=== PATIENT | male | born 1960 | race Caucasian/White ===

== ENCOUNTER 2021-09-16 18:15 | Inpatient (IN) | payer BC, OTHER ==
[~2021-09-16] VITALS: Ht 185.4 cm; Wt 81.6 kg
[2021-09-16 19:33] LABS: Basophils # (auto) 0 10 ^3/uL (0-0.2); Basophils % (auto) 0.2 % (0.0-2.0); Eosinophils # (auto) 0 10 ^3/uL (0-0.8)
[2021-09-16 19:35] LABS: Eosinophils % (auto) 0.2 % (0.0-7.0); Hematocrit 51.5 % (41.0-53.0); Hemoglobin 17.9 g/dL (13.5-17.5); Lymphocytes # (auto) 1.4 10 ^3/uL (0.4-5.4); Mean Corpuscular Hemoglobin 34.6 pg (28.0-32.0); Mean Corpuscular Hgb Conc. 34.7 g/dL (32.0-36.0); Mean Corpuscular Volume 99.7 fL (80.0-100.0); Monocytes # (auto) 1.4 10 ^3/uL (0-1.3); Monocytes % (auto) 8.2 % (0.0-12.0); Neutrophils # (auto) 14.3 10 ^3/uL (1.6-8.6); Neutrophils % (auto) 83.4 % (37.0-80.0); Nucleated Red Blood Cells % 0.1 %; Red Blood Cells 5.17 10^6/uL (4.5-5.90); Red Cell Distribution Width 12.7 % (11.8-14.3); White Blood Cell 17.1 10^3/uL (4.4-10.8)
[2021-09-16] MEDS ORDERED: PANTOPRAZOLE 80 MG in SODIUM CHL 0.9% 100 ML IV ONE (19:45)
[2021-09-16] MEDS ORDERED: PANTOPRAZOLE 40mg/50ML NS AE 50 ML IV ONE (19:45)
[2021-09-16] MEDS ORDERED: FAMOTIDINE (10MG/ML) 2ML VL IV ONE (19:45)
[2021-09-16] MEDS ORDERED: SUCRALFATE 1 GM/10 ML ORAL SUSP PO ONE (19:45)
[2021-09-16 19:54] LABS: Albumin 4.3 g/dL (3.4-5.0); BUN/Creatinine Ratio 8.1; Calcium 9.6 mg/dL (8.5-10.1); Potassium 4.4 mmol/L (3.5-5.1)
[2021-09-16 20:03] LABS: Bilirubin, Total 0.7 mg/dL (0.2-1.0); Total Protein 8.4 g/dL (6.4-8.2)
[2021-09-16] MEDS ORDERED: IOHEXOL 300 MG/ML 100ML BOTTLE IJ ONE (20:26)
[2021-09-16] MEDS ORDERED: IOHEXOL 350 MG/ML 100ML IJ ONE (20:32)
[2021-09-16 20:34] LABS: Lactic Acid w/Reflex 2.3 mmol/L (0.4-2.0)
[2021-09-17] MEDS ORDERED: MORPHINE SULFATE 4 MG/ML SYR/VIAL IV PRN (03:15)
[2021-09-17] MEDS ORDERED: ACETAMINOPHEN 325 MG TAB PO PRN (03:15)
[2021-09-17] MEDS ORDERED: ONDANSETRON HCL 4 MG/2 ML VIAL IV PRN (03:15)
[2021-09-17] MEDS ORDERED: HYDROcodone-ACET 5/325MG TAB PO PRN (03:15)
[2021-09-17] MEDS ORDERED: hydrALAZINE HCL 20 MG/ML VL IV PRN (03:45)
[2021-09-17] MEDS ORDERED: MORPHINE SULFATE INJECTION 2 MG/ML SYRG IV PRN (04:15)
[2021-09-17] MEDS ORDERED: NITROGLYCERIN 0.4 MG SL TAB SL PRN (04:15)
[2021-09-17 06:15] VITALS: BP 150/95
[2021-09-17 06:18] LABS: Basophils # (auto) 0 10 ^3/uL (0-0.2); Basophils % (auto) 0.3 % (0.0-2.0); Eosinophils # (auto) 0.1 10 ^3/uL (0-0.8); Eosinophils % (auto) 0.7 % (0.0-7.0); Hematocrit 46.9 % (41.0-53.0); Hemoglobin 16.2 g/dL (13.5-17.5); Lymphocytes # (auto) 1.9 10 ^3/uL (0.4-5.4); Lymphocytes % (auto) 17.3 % (10.0-50.0); Mean Corpuscular Hemoglobin 34.8 pg (28.0-32.0); Mean Corpuscular Hgb Conc. 34.6 g/dL (32.0-36.0); Mean Corpuscular Volume 100.6 fL (80.0-100.0); Monocytes # (auto) 1.6 10 ^3/uL (0-1.3); Monocytes % (auto) 15.4 % (0.0-12.0); Neutrophils # (auto) 7.1 10 ^3/uL (1.6-8.6); Neutrophils % (auto) 66.3 % (37.0-80.0); Red Blood Cells 4.66 10^6/uL (4.5-5.90); Red Cell Distribution Width 12.8 % (11.8-14.3); White Blood Cell 10.7 10^3/uL (4.4-10.8)
[2021-09-17] MEDS: D5W/SOD CHLO 0.9% 1,000 ML IV SCH ×2 (06:25→16:50)
[2021-09-17 06:31] LABS: Potassium 4.4 mmol/L (3.5-5.1)
[2021-09-17 06:40] LABS: Albumin 3.6 g/dL (3.4-5.0); BUN/Creatinine Ratio 11.7; Bilirubin, Total 1.1 mg/dL (0.2-1.0); Calcium 8.9 mg/dL (8.5-10.1)
[2021-09-17] MEDS: SUCRALFATE 1 GM/10 ML ORAL SUSP PO SCH ×3 (07:10→18:08)
[2021-09-17 08:00] VITALS: BP 146/97
[2021-09-17] MEDS ORDERED: cefTRIAXone 1GM/50ML D5W 50 ML IV SCH (09:00)
[2021-09-17] MEDS: PANTOPRAZOLE 40 MG/10 ML VIAL INJ IV SCH ×2 (11:38→21:59)
[2021-09-17 12:00] VITALS: BP 149/93
[2021-09-17 12:23] LABS: Hematocrit 46.8 % (41.0-53.0); Hemoglobin 16.2 g/dL (13.5-17.5)
[2021-09-17 16:00] VITALS: BP 145/85
[2021-09-17 18:40] LABS: Hemoglobin 15.1 g/dL (13.5-17.5)
[2021-09-17 18:42] LABS: Hematocrit 44.6 % (41.0-53.0)
[2021-09-17 20:00] VITALS: BP 161/85
[2021-09-17 22:47] VITALS: BP 161/85
[2021-09-18] MEDS: D5W/SOD CHLO 0.9% 1,000 ML IV SCH (03:26)
[2021-09-18 05:13] VITALS: BP 161/105
[2021-09-18 05:55] LABS: Eosinophils # (auto) 0.1 10 ^3/uL (0-0.8); Hematocrit 43.1 % (41.0-53.0); White Blood Cell 7.3 10^3/uL (4.4-10.8)
[2021-09-18 06:02] VITALS: BP 136/84
[2021-09-18 06:05] LABS: Basophils # (auto) 0 10 ^3/uL (0-0.2); Basophils % (auto) 0.5 % (0.0-2.0); Eosinophils % (auto) 1.6 % (0.0-7.0); Hemoglobin 14.7 g/dL (13.5-17.5); Lymphocytes # (auto) 1.9 10 ^3/uL (0.4-5.4); Lymphocytes % (auto) 26.6 % (10.0-50.0); Mean Corpuscular Hemoglobin 34.5 pg (28.0-32.0); Mean Corpuscular Volume 101.5 fL (80.0-100.0); Monocytes # (auto) 1.1 10 ^3/uL (0-1.3); Monocytes % (auto) 15.1 % (0.0-12.0); Neutrophils # (auto) 4.1 10 ^3/uL (1.6-8.6); Neutrophils % (auto) 56.2 % (37.0-80.0); Nucleated Red Blood Cells % 0.1 %; Red Blood Cells 4.25 10^6/uL (4.5-5.90); Red Cell Distribution Width 12.6 % (11.8-14.3)
[2021-09-18 06:06] LABS: Potassium 3.8 mmol/L (3.5-5.1)
[2021-09-18 06:11] LABS: Albumin 3.2 g/dL (3.4-5.0); BUN/Creatinine Ratio 14.5; Calcium 8.2 mg/dL (8.5-10.1); Total Protein 6.2 g/dL (6.4-8.2)
== END 2021-09-18 09:08 | disposition left against medical advice (07) | DRG 391 ==
LOC: ER 18:20 → OVERFLOW 09-17 04:04 → WEST WING 09-17 06:00
PROVIDERS: ADMIT Nurse Practitioner Family; ATTEND Internal Medicine
DX: K52.9 Noninfective gastroenteritis and colitis, unspecified (principal); K29.71 Gastritis, unspecified, with bleeding; K21.01 Gastro-esophageal reflux disease with esophagitis, with bleeding; F17.210 Nicotine dependence, cigarettes, uncomplicated; Z53.29 Procedure and treatment not carried out because of patient's decision for other reasons; K27.9 Peptic ulcer, site unspecified, unspecified as acute or chronic, without hemorrhage or perforation; Z20.822 Contact with and (suspected) exposure to COVID-19; Z80.0 Family history of malignant neoplasm of digestive organs; Z80.8 Family history of malignant neoplasm of other organs or systems
CPT/HCPCS: 36415; 71260; 74177; 80053; 83036; 83605; 83690; 85014; 85018; 85025; 86850; 86900; 86901; 87426; 93005; 96365; 96367; 96375; C9113; G0378; J0696; J3490; J7042

== ENCOUNTER 2023-09-25 21:53 | Inpatient (IN) | payer BC, OTHER ==
[~2023-09-25] VITALS: Ht 177.8 cm; Wt 86.1 kg
[2023-09-25] MEDS ORDERED: ALBUTEROL MEDNEB 2.5 mg/3ml NEB ONE ×2 (21:57→23:25)
[2023-09-25] MEDS ORDERED: IPRATROPIUM BROM 0.5 MG/2.5ML INH SOL ONE ×2 (21:57→23:25)
[2023-09-25 21:58] VITALS: PULSE 123; RESP 34; O2SAT 98
[2023-09-25] MEDS ORDERED: MAGNESIUM SULFATE 1GM/100ML 100 ML IV ONE (22:15)
[2023-09-25] MEDS ORDERED: DexAMETHasone SOD PHOS 10MG/1ML VIAL INJ IV ONE (22:15)
[2023-09-25] MEDS ORDERED: LABETALOL HCL 5 MG/ML 4ML SYRINGE IV ONE (22:15)
[2023-09-25] MEDS ORDERED: IPRATROPIUM BROM 0.5 MG/2.5ML INH SOL NEB ONE ×2 (22:15→23:45)
[2023-09-25] MEDS ORDERED: AZITHROMYCIN 500MG/ 250ML 250 ML IV ONE (22:15)
[2023-09-25] MEDS ORDERED: ALBUTEROL MEDNEB 2.5 mg/3ml NEB NEB ONE (22:30)
[2023-09-25] MEDS ORDERED: cefTRIAXone 1GM/50ML D5W 50 ML IV ONE (22:30)
[2023-09-25 22:34] LABS: Basophils # (auto) 0 10 ^3/uL (0-0.2); Basophils % (auto) 0.3 % (0.0-2.0); Eosinophils # (auto) 0.2 10 ^3/uL (0-0.8); Eosinophils % (auto) 1.7 % (0.0-7.0); Hematocrit 42.2 % (41.0-53.0); Hemoglobin 14.3 g/dL (13.5-17.5); Mean Corpuscular Hemoglobin 34.7 pg (28.0-32.0); Mean Corpuscular Hgb Conc. 33.9 g/dL (32.0-36.0); Mean Corpuscular Volume 102.2 fL (80.0-100.0); Monocytes # (auto) 1.7 10 ^3/uL (0-1.3); Monocytes % (auto) 13.2 % (0.0-12.0); Neutrophils % (auto) 38.8 % (37.0-80.0); Nucleated Red Blood Cells % 0.1 %; Red Blood Cells 4.13 10^6/uL (4.5-5.90); Red Cell Distribution Width 12.7 % (11.8-14.3); White Blood Cell 12.9 10^3/uL (4.4-10.8)
[2023-09-25 22:50] LABS: INR 0.93 (0.9-1.15); Partial Thromboplastin Time 27.6 SEC (24.5-34.5); Prothrombin Time 9.8 sec (9.3-11.8)
[2023-09-25 22:55] VITALS: BP 203/123; PULSE 126; RESP 20; O2SAT 97
[2023-09-25 23:22] LABS: Base Excess -2.7 mmol/L (-2.0-2.0)
[2023-09-25 23:45] LABS: Alanine Aminotransferase 22 U/L (7-40); Albumin 4.8 g/dL (3.2-4.8); Alkaline Phosphatase 83 U/L (46-116); Anion Gap 5 (5-15); Aspartate Aminotransferase 28 U/L (13-40); BUN/Creatinine Ratio 7.9 (10.0-20.0); Bilirubin, Total 0.2 mg/dL (0.2-1.0); Blood Urea Nitrogen 6 mg/dL (9-23); Calcium 8.8 mg/dL (8.7-10.4); Carbon Dioxide 29 mmol/L (20-30); Chloride 96 mmol/L (98-107); Glucose 143 mg/dL (74-106); Magnesium 2.1 mg/dL (1.6-2.6); Potassium 4.4 mmol/L (3.5-5.1); Sodium 130 mmol/L (136-145)
[2023-09-25] MEDS ORDERED: ALBUTEROL SULF 2.5 MG/0.5ML(0.5%) NEB SOLN NEB ONE (23:45)
[2023-09-25 23:46] LABS: Total Protein 7.5 g/dL (5.7-8.2)
[2023-09-25 23:49] VITALS: BP 113/78; PULSE 81; O2SAT 95
[2023-09-26] VITALS (8 sets, daily range): BP systolic 112–132; BP diastolic 76–94; PULSE 78–86; RESP 15–22; TEMP 97.9–98.2; O2SAT 92–98
[2023-09-26 03:49] LABS: Urine Bacteria NONE SEEN /hpf (None Seen); Urine Blood Negative /uL (Negative); Urine Clarity Clear (Clear); Urine Color Colorless (Yellow); Urine Hyaline Cast FEW /lpf (0 - 2); Urine Protein, UAD 1+ (Negative); Urine Specific Gravity 1.012 (1.001-1.035); Urine Urobilinogen Normal (Negative); Urine WBC 1 /hpf (0 - 3)
[2023-09-26] MEDS ORDERED: ACETAMINOPHEN 325 MG TAB PO PRN (04:30)
[2023-09-26] MEDS ORDERED: TEMAZEPAM 15 MG CAP PO PRN (04:30)
[2023-09-26] MEDS ORDERED: ONDANSETRON HCL 4 MG/2 ML VIAL IV PRN (04:30)
[2023-09-26] MEDS ORDERED: ALBUTEROL SULF 2.5 MG/0.5ML(0.5%) NEB SOLN NEB PRN (04:30)
[2023-09-26] MEDS ORDERED: NITROGLYCERIN 0.4 MG SL TAB SL PRN (04:30)
[2023-09-26] MEDS ORDERED: MORPHINE SULFATE INJ 2 MG/ml SYRG IV PRN (04:30)
[2023-09-26] MEDS ORDERED: IPRATROPIUM BROM 0.5 MG/2.5ML INH SOL NEB PRN (04:30)
[2023-09-26 10:06] LABS: Chloride 96 mmol/L (98-107); Sodium 133 mmol/L (136-145)
[2023-09-26 10:07] LABS: Anion Gap 6 (5-15); Calcium 9.2 mg/dL (8.5-10.1); Carbon Dioxide 31 mmol/L (20-30)
[2023-09-26 10:12] LABS: BUN/Creatinine Ratio 8.3 (10.0-20.0); Blood Urea Nitrogen 6 mg/dL (9-23); Glucose 126 mg/dL (74-106)
[2023-09-26] MEDS: methylPREDNISolone SOD SUCC 125 MG/2 ML VL IV SCH ×2 (10:26→21:54)
[2023-09-26] MEDS: ENOXAPARIN SOD 40 MG/0.4 ML SYRINGE SC SCH (10:26)
[2023-09-26] MEDS: LISINOPRIL 10 MG TAB PO SCH (10:27)
[2023-09-26 10:29] LABS: Basophils # (auto) 0 10 ^3/uL (0-0.2); Basophils % (auto) 0.1 % (0.0-2.0); Eosinophils # (auto) 0 10 ^3/uL (0-0.8); Hemoglobin 13.9 g/dL (13.5-17.5); Lymphocytes # (auto) 0.7 10 ^3/uL (0.4-5.4); Lymphocytes % (auto) 13.7 % (10.0-50.0); Monocytes # (auto) 0.7 10 ^3/uL (0-1.3)
[2023-09-26 10:31] LABS: Hematocrit 39.9 % (41.0-53.0); Mean Corpuscular Hemoglobin 35.4 pg (28.0-32.0); Mean Corpuscular Hgb Conc. 34.9 g/dL (32.0-36.0); Mean Corpuscular Volume 101.4 fL (80.0-100.0); Monocytes % (auto) 12.2 % (0.0-12.0); Red Blood Cells 3.94 10^6/uL (4.5-5.90); Red Cell Distribution Width 12.6 % (11.8-14.3); White Blood Cell 5.4 10^3/uL (4.4-10.8)
[2023-09-26] MEDS ORDERED: AZIT-81 PO (10:39)
[2023-09-26] MEDS ORDERED: METH4PAK PO (10:39)
[2023-09-26 11:24] LABS: Magnesium 2.3 mg/dL (1.6-2.6)
[2023-09-26] MEDS ORDERED: cefTRIAXone 1GM/50ML D5W 50 ML IV ONE ×2 (12:00→13:24)
[2023-09-26] MEDS ORDERED: AZITHROMYCIN 500MG/ 250ML 250 ML IV ONE (12:00)
[2023-09-26] MEDS ORDERED: ALBU108A5 PO (12:12)
[2023-09-26] MEDS ORDERED: OMEP20TA PO (12:12)
[2023-09-26] MEDS ORDERED: TIOT17SP PO (12:12)
[2023-09-26] MEDS ORDERED: NICO21DI37 TOP (12:12)
[2023-09-26] MEDS ORDERED: FLUT100M (12:12)
[2023-09-26 13:45] LABS: COVID19 ANTIGEN SOFIA FIA NEGATIVE (NEGATIVE)
[2023-09-26] MEDS ORDERED: PANTOPRAZOLE 40 MG TAB PO ONE (20:15)
[2023-09-27 05:00] VITALS: BP 127/89; PULSE 63; RESP 20; TEMP 97.4; O2SAT 99
[2023-09-27 06:05] LABS: Basophils # (auto) 0 10 ^3/uL (0-0.2); Basophils % (auto) 0.1 % (0.0-2.0); Eosinophils # (auto) 0 10 ^3/uL (0-0.8); Hemoglobin 13.8 g/dL (13.5-17.5); Lymphocytes # (auto) 0.9 10 ^3/uL (0.4-5.4); Monocytes # (auto) 0.9 10 ^3/uL (0-1.3); Neutrophils # (auto) 6.7 10 ^3/uL (1.6-8.6); White Blood Cell 8.4 10^3/uL (4.4-10.8)
[2023-09-27 06:08] LABS: Lymphocytes % (auto) 10.4 % (10.0-50.0); Mean Corpuscular Hemoglobin 35.2 pg (28.0-32.0); Mean Corpuscular Hgb Conc. 34.5 g/dL (32.0-36.0); Mean Corpuscular Volume 101.9 fL (80.0-100.0); Monocytes % (auto) 10.6 % (0.0-12.0); Neutrophils % (auto) 78.9 % (37.0-80.0); Red Blood Cells 3.93 10^6/uL (4.5-5.90); Red Cell Distribution Width 12.6 % (11.8-14.3)
[2023-09-27 06:11] LABS: Chloride 96 mmol/L (98-107); Potassium 3.9 mmol/L (3.5-5.1); Sodium 132 mmol/L (136-145)
[2023-09-27 06:12] LABS: Anion Gap 5 (5-15); Carbon Dioxide 31 mmol/L (20-30)
[2023-09-27 06:17] LABS: Glucose 152 mg/dL (74-106)
[2023-09-27 06:18] LABS: BUN/Creatinine Ratio 11.6 (10.0-20.0); Blood Urea Nitrogen 8 mg/dL (9-23); Magnesium 2.2 mg/dL (1.6-2.6)
[2023-09-27 06:57] VITALS: O2SAT 97
[2023-09-27 08:00] VITALS: PULSE 75; PULSE 81; RESP 18; O2SAT 97
[2023-09-27] MEDS ORDERED: cefTRIAXone 1GM/50ML D5W 50 ML IV SCH (09:00)
[2023-09-27] MEDS: methylPREDNISolone SOD SUCC 125 MG/2 ML VL IV SCH (09:30)
[2023-09-27] MEDS: LISINOPRIL 10 MG TAB PO SCH (09:30)
[2023-09-27] MEDS: ENOXAPARIN SOD 40 MG/0.4 ML SYRINGE SC SCH (09:31)
[2023-09-27] MEDS ORDERED: PANTOPRAZOLE 40 MG TAB PO SCH (10:00)
[2023-09-27] MEDS ORDERED: AZITHROMYCIN 500MG/ 250ML 250 ML IV SCH ×2 (10:00)
[2023-09-27] MEDS ORDERED: NICOTINE 14 MG/24HR TOPICAL PATCH TD SCH (10:00)
== END 2023-09-27 11:20 | disposition left against medical advice (07) | DRG 189 ==
LOC: ER 21:53 → EDBD 21:53 → TELE 09-26 04:24 → TELE-CENTR 09-26 11:20
PROVIDERS: ADMIT Internal Medicine; ATTEND Student in an Organized Health Care Education/Training Program
PROC: 5A09357 Assistance with Respiratory Ventilation, Less than 24 Consecutive Hours, Continuous Positive Airway Pressure (ICD-10-PCS; principal; 2023-09-25)
DX: J96.21 Acute and chronic respiratory failure with hypoxia (principal); J44.1 Chronic obstructive pulmonary disease with (acute) exacerbation; J98.11 Atelectasis; E87.1 Hypo-osmolality and hyponatremia; I10 Essential (primary) hypertension; F17.210 Nicotine dependence, cigarettes, uncomplicated; K21.9 Gastro-esophageal reflux disease without esophagitis; Z53.29 Procedure and treatment not carried out because of patient's decision for other reasons; Z20.822 Contact with and (suspected) exposure to COVID-19; J96.22 Acute and chronic respiratory failure with hypercapnia; E66.9 Obesity, unspecified; Z68.27 Body mass index [BMI] 27.0-27.9, adult
CPT/HCPCS: 36415; 36600; 71045; 80048; 80053; 81001; 82805; 83735; 83880; 84443; 84484; 85025; 85379; 85610; 85730; 87081; 87426; 93005; 94640; 94660; 96365; 99291; G0378; J0696; J1100; J3490

== ENCOUNTER 2025-01-06 17:02 | Inpatient (IN) | payer OTHER ==
[2025-01-06] VITALS (7 sets, daily range): BP systolic 139–163; BP diastolic 84; PULSE 93–126; RESP 17–26; O2SAT 91–97
[~2025-01-06] VITALS: Ht 185.4 cm; Wt 96.6 kg
[~2025-01-06 17:02] MED LIST: ALBU108A5 PO; AZIT-185 PO; FLUT100M; METH4PAK PO; NICO21DI37 TOP; OMEP20TA PO; TIOT17SP PO
--- NOTE | 2025-01-06 17:12 | ECG ---
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
[2025-01-06] MEDS: IPRATROPIUM BROM 0.5 MG/2.5ML INH SOL HHN ONE (17:27)
[2025-01-06] MEDS: ALBUTEROL SULF 2.5 MG/0.5ML(0.5%) NEB SOLN HHN ONE (17:28)
[2025-01-06] MEDS: hydrALAZINE HCL 20 MG/ML VL IV ONE (17:31)
[2025-01-06] MEDS: methylPREDNISolone SOD SUCC 125 MG/2 ML VL IV ONE (17:32)
--- NOTE | 2025-01-06 17:33 | ED.PDOC ---
SOB-HPI HPI Comments 64y M who presents to the ED via EMS for chief complaint of shortness of breath. Pt states he has been having shortness of breath 30 mins prior to calling EMS. EMS states pt has history of COPD and attempted to use his inhaler with no relief and called EMS. Pt states he had 1 prior episode in the past with respiratory distress and states he taken to ED and intubated. Upon EMS arrival, pt has 02 sat of 77% on room air with noted respiratory distress and pt was given breathing treatment, 1g nitro paste, and placed on CPAP with 02 sat rising to 92%. EMS states pt was placed on EMS gurney and en route to the ED, pt started to become diaphoretic and tachycardic. Pt in the ED, able to speak in 2 word sentences but is [id number]. Chief Complaint: Shortness of Breath Time Seen by MD: 17:09 Primary Care Provider: KAYE Toure notes: Director Of Health Education Notes Information Source: Patient, Emergency Med Personnel Mode of Arrival: EMS Brought in by: EMS Severity: Moderate Timing: Minutes Duration: Since onset Context: At Rest, With Light Exertion PE Risk Factors: None History of: COPD Prehospital treatment: NTG, Oxygen, Treatment (albuterol and atrovent) Modifying Factors: Nothing Associated Signs and Symptoms: None If cough with SOB: Non-Productive Past Medical History PAST MEDICAL HISTORY: COPD, GERD, HTN Surgical History: Denies all surgeries Family History Family History: Family hx of Cancer Social History Smoker: Cigarettes Alcohol: Occasionally Drugs: Denies Drug Use Lives In: Home Constitutional: denies: chills, diaphoresis, fatigue, fever, malaise, sweats, weakness, others EENTM: denies: blurred vision, double vision, ear bleeding, ear discharge, ear drainage, ear pain, ear ringing, eye pain, eye redness, hearing loss, mouth pain, mouth swelling, nasal discharge, nose bleeding, nose congestion, nose pain, photophobia, tearing, throat pain, throat swelling, voice changes, others Respiratory: reports: SOB at rest, shortness of breath, SOB with excertion; denies: cough, hemoptysis, orthopnea, stridor, wheezing, others Cardiovascular: denies: chest pain, dizzy spells, diaphoresis, Dyspnea on exertion, edema, irregular heart beat, left arm pain, lightheadedness, palpitations, PND, syncope, others Gastrointestinal: denies: abdomen distended, abdominal pain, blood streaked bowels, constipated, diarrhea, dysphagia, difficulty swallowing, hematemesis, melena, nausea, poor appetite, poor fluid intake, rectal bleeding, rectal pain, vomiting, others Genitourinary: denies: burning, dysuria, flank pain, frequency, hematuria, incontinence, penile discharge, penile sore, pain, testicle pain, testicle swelling, urgency, others Neurological: denies: dizziness, fainting, headache, left sided numbness, left sided weakness, numbness, paresthesia, pre-existing deficit, right sided numbness, right sided weakness, seizure, speech problems, tingling, tremors, weakness, others Musculoskeletal: denies: back pain, gout, joint pain, joint swelling, muscle pain, muscle stiffness, neck pain, others Integumetry: denies: bruises, change in color, change in hair/nails, dryness, laceration, lesions, lumps, rash, wounds, others Allergic/Immunocompromised: denies: Difficulty Healing, Frequent Infections, Hives, Itching, others Hematologic/Lymphatic: denies: anemia, blood clots, easy bleeding, easy bruising, swollen glands, others Endocrine: denies: excessive hunger, excessive sweating, excessive thirst, excessive urination, flushing, intolerance to cold, intolerance to heat, unexplained weight gain, unexplained weight loss, others Psychiatric: denies: anxiety, bipolar disorder, depression, hopeless, panic disorder, schizophrenia, sleepless, suicidal, others All Other Systems: Reviewed and Negative Physical Exam General Appearance: Severe Distress HEENT: Normal ENT Inspection, Pharynx Normal, TMs Normal Neck: Full Range of Motion, Non-Tender, Normal, Normal Inspection Respiratory: Accessory Muscle Use, Chest Non-Tender, Decreased Breath Sounds, Respiratory Distress, Wheezing Cardiovascular: No Edema, No JVD, No Murmur, No Gallop, Tachycardia Breast Exam: Deferred Gastrointestinal: No Organomegaly, Non Tender, No Pulsatile Mass, Normal Bowel Sounds, Soft Genitalia: Deferred Pelvic: Deferred Rectal: Deferred Extremities: No calf tenderness, Normal capillary refill, Normal inspection, Normal range of motion, Non-tender, No pedal edema Musculoskeletal : Apperance: Normal 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 Was a procedure done?: Yes Sedation Sedation?: Yes Informed consent obtained: Yes Sedation start time: 17:51 Sedation end time: 17:52 Sedation total time: 1 minute Intubation Indication: Respiratory Insufficiency Prep: Preoxygenation Pretreated with: Sedation (etomidate 20mg) Medicated with: Succinylcholine (100 mg) Intubation Approach: Orotracheal Intubation size: cm (24) Differential Dx Differential Diagnosis: CHF, COPD, Hyponatremia, Myocardial infarction, Pneumonia, Pulmonary Embolism, Respiratory Distress Comments COVID,Influenza A and B X-Ray, Labs, Meds, VS Vital Signs Date Time Temp Pulse Resp B/P (MAP) Pulse Ox O2 Delivery O2 Flow Rate FiO2 01/06/25 20:00 146/78 01/06/25 20:00 146/78 01/06/25 19:52 150/77 01/06/25 19:36 126 26 163/84 (110) 95 45 01/06/25 19:36 126 26 163/84 (110) 95 45 01/06/25 19:30 162/81 01/06/25 19:30 162/81 01/06/25 19:20 97 Mechanical Ventilator+ 45 45 01/06/25 19:10 179/84 01/06/25 19:00 132 22 188/100 (129) 91 01/06/25 19:00 188/100 01/06/25 19:00 188/100 01/06/25 18:49 139 22 182/100 (127) 95 01/06/25 18:41 138 21 126/89 (101) 94 01/06/25 18:31 139 26 225/125 (158) 91 01/06/25 18:30 225/125 01/06/25 18:30 225/125 01/06/25 18:20 240/130 01/06/25 18:15 142 28 145/131 (136) 93 01/06/25 18:10 259/139 01/06/25 18:00 139 28 250/132 (171) 97 01/06/25 18:00 250/132 01/06/25 18:00 250/132 01/06/25 17:33 117 01/06/25 17:31 212/116 01/06/25 17:27 113 186/125 Facial BiPAP Mask 35 01/06/25 17:26 117 17 97 Bi-Pap+ 100 100 01/06/25 17:15 97.6 117 30 212/116 (148) 97 97.6 01/06/25 17:15 97.6 121 30 238/104 (148) 77 01/06/25 17:03 117 Lab Test 01/06/25 19:38 01/06/25 18:35 01/06/25 18:24 01/06/25 17:30 Range/Units Lactic Acid Level Pending 2.1 *H 0.4-2.0 mmol/L Troponin I High Sensitivity 5 4 </=54 ng/L Influenza Type A Antigen Negative Negative Influenza Type B Antigen Negative Negative SARS-CoV-2 Antigen (Rapid) Negative NEGATIVE White Blood Count 11.4 H 4.4-10.8 10^3/uL Red Blood Count 3.86 L 4.5-5.90 10^6/uL Hemoglobin 13.1 L 13.5-17.5 g/dL Hematocrit 39.1 L 41.0-53.0 % Mean Corpuscular Volume 101.3 H 80.0-100.0 fL Mean Corpuscular Hemoglobin 33.8 H 28.0-32.0 pg Mean Corpuscular Hemoglobin Concent 33.4 32.0-36.0 g/dL Red Cell Distribution Width 12.5 11.8-14.3 % Platelet Count 247 140-450 10^3/uL Mean Platelet Volume 7.2 6.9-10.8 fL Neutrophils (%) (Auto) 70.5 37.0-80.0 % Lymphocytes (%) (Auto) 20.5 10.0-50.0 % Monocytes (%) (Auto) 8.5 0.0-12.0 % Eosinophils (%) (Auto) 0.2 0.0-7.0 % Basophils (%) (Auto) 0.3 0.0-2.0 % Neutrophils # (Auto) 8.0 1.6-8.6 10 ^3/uL Lymphocytes # (Auto) 2.3 0.4-5.4 10 ^3/uL Monocytes # (Auto) 1.0 0-1.3 10 ^3/uL Eosinophils # (Auto) 0 0-0.8 10 ^3/uL Basophils # (Auto) 0 0-0.2 10 ^3/uL Nucleated Red Blood Cells 0.0 % D-Dimer, Quantitative Pending Sodium Level 128 L 136-145 mmol/L Potassium Level 4.4 3.5-5.1 mmol/L Chloride Level 91 L 98-107 mmol/L Carbon Dioxide Level 27 20-31 mmol/L Anion Gap 10 5-15 Blood Urea Nitrogen 8 L 9-23 mg/dL Creatinine 0.77 0.700-1.30 mg/dL Glomerular Filtration Rate Calc 99 >90 mL/min BUN/Creatinine Ratio 10.4 10.0-20.0 Serum Glucose 114 H 74-106 mg/dL Calcium Level 9.5 8.7-10.4 mg/dL B-Type Natriuretic Peptide 46.30 0-100 pg/mL Current Medications Medications (Trade) Dose Ordered Sig/Marisol Route Start Time Stop Time Status Last Admin Methylprednisolone Sodium Succinate (Solu Medrol) 125 mg ONCE ONCE IV 01/06/25 17:15 01/06/25 17:16 DC 01/06/25 17:32 Ipratropium [place] (Atrovent Medneb) 1 mg ONCE ONCE [facility] 01/06/25 17:15 01/06/25 17:16 DC 01/06/25 17:27 Albuterol (Ventolin Medneb) 20 mg ONCE ONCE N 01/06/25 17:15 01/06/25 17:16 DC 01/06/25 17:28 Hydralazine HCl (Apresoline Injection) 20 mg ONCE ONCE IV 01/06/25 17:30 01/06/25 17:31 DC 01/06/25 17:31 Etomidate 20 mg ONCE ONCE IV 01/06/25 17:45 01/06/25 17:46 DC 01/06/25 17:51 Succinylcholine Chloride (Quelicin) 100 mg ONCE ONCE IV 01/06/25 17:45 01/06/25 17:46 DC 01/06/25 17:51 Sodium Chloride 2,400 ml @ 2,400 mls/hr ONCE ONCE IV 01/06/25 18:00 01/06/25 18:59 DC 01/06/25 18:58 Ceftriaxone Sodium 50 ml @ 100 mls/hr ONCE ONCE IV 01/06/25 18:00 01/06/25 18:29 DC 01/06/25 19:52 Furosemide (Lasix Injection) 40 mg ONCE ONCE IV 01/06/25 18:30 01/06/25 18:31 DC 01/06/25 19:52 Propofol 100 ml @ 2.589 mls/ hr Q24H IV 01/06/25 18:30 01/06/25 18:00 Succinylcholine Chloride (Quelicin) 100 mg ONCE ONCE IV 01/06/25 18:30 01/06/25 18:31 DC 01/06/25 18:50 Midazolam HCl 50 ml @ 1 mls/hr Q24H IV 01/06/25 19:15 01/06/25 18:00 EXAM: XY CHEST PORTABLE IMPRESSION: Left basilar opacity with possible trace left pleural effusion. The patient was given Lasix 40 mg IV push The patient was given a continuous breathing treatment of albuterol and Atrovent. The patient was given Solu-Medrol 125 mg IV push The patient was given a a continuous breathing treatment of albuterol and Atrovent. The patient was also extremely hypertensive so was given hydralazine 20 mg IV push Despite our efforts of having the patient on BiPAP the patient's became much more labored in his breathing and so it required intubation. The patient was intubated without any complications. The patient was being sedated with propofol and Versed. The BNP is within normal limits. The CBC shows an elevated white blood cell count of 11.4 The influenza a and influenza B are negative The COVID test is negative The troponin level is negative At this time, the patient was being admitted with a diagnosis of acute re spiratory failure The patient had a Mak catheter placed. The patient also had an NG-tube placed The patient was being admitted Images Reviewed?: Images reviewed and evaluated by me Time of 1ST Reevaluation: 18:00 Reevaluation 1ST: Unchanged Patient Education/Counseling: Diagnosis, Treatment, Prognosis Family Education/Counseling: Diagnosis, Treatment, Prognosis Additional Information - I reviewed the following notes from patient's past medical encounters: - The following tests were ordered, and results were reviewed by me: (Labs, X- Ray, EKG): troponin x3, cbc, bnp, chest x-ray, ekg x3, blood culture, lactic acid, bnp, covid, influenza a and b, - Additional information was gathered from interviewing the following independent Historian: (Family, Other Providers, EMT): EMS - I reviewed and agreed with the following test results read by other provider: radiologist - I discussed treatments and results with medical personnel and: (consultants, family): none Departure 1 Departure Time of Disposition: 20:41 Impression: Primary Impression: Acute respiratory failure Qualified Codes: J96.01 - Acute respiratory failure with hypoxia Additional Impression: COPD exacerbation Disposition: ADMITTED INPATIENT Admit to: ICU Condition: Critical Critical Care Note Critical Care Time?: Yes (55 min-critical care time only) Stability Stability form required: Yes Unstable for transfer: ICU, CCU, PCU, SRUTHI (Intensive VS monitoring), May require CPR (possible rapid decline), ED Physician Assesment (Clinical assesment) Heart Score Heart Score: Heart Score Response (Comments) Value History Slightly Suspicious 0 EKG Normal 0 Age >65 2 Risk Factors 1 or 2 risk factors 1 Troponin Normal limit 0 Total 3 I personally scribed for EZEQUIEL MENG MD ([email or web address]) on 01/06/25 at 17:33. Elect ronically submitted by Buster Delcid ([email or web address]). I personally scribed for EZEQUIEL MENG MD ([email or web address]) on 01/06/25 at 17:49. Electronically submitted by Buster Delcid ([email or web address]). I personally scribed for EZEQUIEL MENG MD ([email or web address]) on 01/06/25 at 18:14. Electronically submitted by Buster Delcid ([email or web address] EZEQUIEL MENG MD Jan 06, 2025 17:33
--- NOTE | 2025-01-06 17:42 | DVH ---
EXAM: XY CHEST PORTABLE Indication: sob Technique: Single frontal view of the chest was obtained Comparison: XY CHEST PORTABLE on DOS: 09/25/23 FINDINGS: Lines and Tubes: None Lungs: Left basilar opacity. Pleura: Possible trace left pleural effusion. No pneumothorax. Cardiomediastinal contours: Unremarkable Bones: No acute osseous abnormality. IMPRESSION: Left basilar opacity with possible trace left pleural effusion.
[2025-01-06] MEDS: SUCCINYLCHOLINE CHLORIDE 20 MG/ML 10ML VIAL IV ONE ×3 (17:51→18:52)
[2025-01-06] MEDS: ETOMIDATE (2MG/ML) 20ML VIAL IV ONE ×2 (17:51→18:51)
[2025-01-06 17:59] LABS: Potassium 4.4 mmol/L (3.5-5.1)
[2025-01-06 18:00] LABS: Anion Gap 10 (5-15); Calcium 9.5 mg/dL (8.7-10.4); Carbon Dioxide 27 mmol/L (20-31)
[2025-01-06] MEDS: PROPOFOL 100 ML IV SCH (18:00)
[2025-01-06] MEDS: MIDAZOLAM DRIP 50 mg/50mL 50 ML IV SCH (18:00)
[2025-01-06 18:03] LABS: Basophils # (auto) 0 10 ^3/uL (0-0.2); Basophils % (auto) 0.3 % (0.0-2.0); Eosinophils # (auto) 0 10 ^3/uL (0-0.8); Eosinophils % (auto) 0.2 % (0.0-7.0); Hematocrit 39.1 % (41.0-53.0); Hemoglobin 13.1 g/dL (13.5-17.5); Lymphocytes # (auto) 2.3 10 ^3/uL (0.4-5.4); Lymphocytes % (auto) 20.5 % (10.0-50.0); Mean Corpuscular Hemoglobin 33.8 pg (28.0-32.0); Mean Corpuscular Hgb Conc. 33.4 g/dL (32.0-36.0); Mean Corpuscular Volume 101.3 fL (80.0-100.0); Monocytes % (auto) 8.5 % (0.0-12.0); Neutrophils % (auto) 70.5 % (37.0-80.0); Platelet Count (auto) 247 10^3/uL (140-450); Red Blood Cells 3.86 10^6/uL (4.5-5.90); Red Cell Distribution Width 12.5 % (11.8-14.3); White Blood Cell 11.4 10^3/uL (4.4-10.8)
[2025-01-06 18:05] LABS: BUN/Creatinine Ratio 10.4 (10.0-20.0)
--- NOTE | 2025-01-06 18:13 | DVH ---
EXAM: XR Chest, 1 View CLINICAL INDICATION: POST INTU BATION TECHNIQUE: Frontal view of the chest. COMPARISON: XY CHEST PORTABLE on DOS: 01/06/25, XY CHEST PORTABLE on DOS: 09/25/23 FINDINGS: LUNGS AND PLEURAL SPACES: Pulmonary venous congestion. No consolidation. No pneumothorax. HEART: Unremarkable. No cardiomegaly. MEDIASTINUM: Unremarkable. Normal mediastinal contour. BONES/JOINTS: Unremarkable. No acute fracture. TUBES, LINES AND DEVICES: The endotracheal tube (ETT) is in satisfactory position. OTHER FINDINGS: . None. . . IMPRESSION: Pulmonary venous congestion.
[2025-01-06 18:39] LABS: Blood Urea Nitrogen 8 mg/dL (9-23); Chloride 91 mmol/L (98-107); Glucose 114 mg/dL (74-106); Sodium 128 mmol/L (136-145)
[2025-01-06 18:50] LABS: Lactic Acid w/Reflex 2.1 mmol/L (0.4-2.0)
[2025-01-06] MEDS: PROPOFOL 100 ML IV ONE (18:51)
[2025-01-06] MEDS: MIDAZOLAM DRIP 50 mg/50mL 50 ML IV ONE (18:51)
[2025-01-06] MEDS: SODIUM CHLORIDE 0.9% 2,400 ML IV ONE (18:58)
[2025-01-06] MEDS: cefTRIAXone 1GM/50ML D5W 50 ML IV ONE (19:52)
[2025-01-06] MEDS: FUROSEMIDE 40 MG/4 ML VIAL IV ONE (19:52)
[2025-01-06 19:53] LABS: COVID19 ANTIGEN SOFIA FIA NEGATIVE (NEGATIVE); Rapid Influenza A Negative (Negative); Rapid Influenza B Negative (Negative)
[2025-01-06] MEDS ORDERED: NITROGLYCERIN 0.4 MG SL TAB SL PRN (20:00)
[2025-01-06] MEDS ORDERED: MORPHINE SULFATE INJ 2 MG/ml SYRG IV PRN (20:00)
[2025-01-06] MEDS ORDERED: ONDANSETRON HCL 4 MG/2 ML VIAL IV PRN (20:30)
[2025-01-06] MEDS ORDERED: ACETAMINOPHEN 325 MG TAB PO PRN (20:30)
[2025-01-06] MEDS: ERYTHROMY OPTH OINT 5mg/gm 1gm or 3.5gm tube ONE (20:32)
[2025-01-06 20:36] LABS: Base Excess -5.2 mmol/L (-2.0-3.0)
[2025-01-06] MEDS: fentaNYL Drip 2500mCg/250mlNS 250 ML IV SCH (21:22)
--- NOTE | 2025-01-06 23:14 | DVH ---
CHEST RADIOGRAPH Indication: central line placement Technique: Single frontal view of the chest was obtained COMPARISON: XY CHEST PORTABLE on DOS: 01/06/25, XY CHEST PORTABLE on DOS: 01/06/25, XY CHEST PORTABLE o n DOS: 09/25/23 FINDINGS: Lines and Tubes: Endotracheal tube terminates 4 cm above the mariel. Right-sided central venous erica ter is seen with tip in the cavoatrial junction. Enteric tube courses below the diaphragm with tip co llimated from view. Lungs: Left midlung atelectasis/scarring. No clear evidence of pneumonia Pleura: No effusion. No pneumothorax. Cardiomediastinal contours: Unremarkable Bones: Unremarkable IMPRESSION: 1. No acute disease. 2. Right -sided central venous catheter is seen with tip in the cavoatrial junction.
[2025-01-07] VITALS (107 sets, daily range): BP systolic 91–184; BP diastolic 58–106; PULSE 57–99; RESP 16–25; TEMP 96.1–99.3; O2SAT 87–100
--- NOTE | 2025-01-07 00:08 | DVHNC2 ---
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 ARROYO) Indication: Volume resuscitation, Other Room prepared for procedure: Yes [employer] performed hand hygien: Yes Maximal sterile barrier precau: Mask/Eye shield, Sterile gown, Cap, Sterlie gloves, Large sterlie drape Skin Preparation: Chlorhexidine gluconate Skin preparation completely dr: Yes Insertion site: Right, Internal jugular Central line catheter type: Xdu-[id number]-fcy dialysis Number of lumens: 3 Central line exchanged over a: No Antiseptic ointment applied to: Yes Post Assessment: Chest X-Ray, Proper placement Informed consent obtained: Yes Risks/benefits/alt described: Yes Date of Service: Jan 07, 2025 Billing Provider: KAILYN BLACKWELL MD Common Visit Codes: PROCEDURE ONLY RUBINA HELTON RESIDENT Jan 07, 2025 00:08
--- NOTE | 2025-01-07 00:09 | DVHHP2 ---
History of Present Illness Reason for Visit: Shortness for breath History of Present Illness 64-year-old male presents for of shortness for breath. Patient presented with a one day history of worsening shortness for breath. She does have a history of COPD. He had been using his inhaler and nebulizer home without relief of the symptoms. On arrival patient was saturating in the 70s became progressively more obtunded. Patient was intubated for airway protection. Past Medical History Hypertension, GERD, COPD Past Surgical History Denies Family History Noncontributory Smoke: <1 pack per day ALCOHOL: occassional Drugs: None Lives: with Family Review of Systems Review of Systems Review of systems are currently negative otherwise addressed in HPI. Allergies: Coded Allergies: NO KNOWN ALLERGIES (Unverified , 09/17/21) Medications Current Medications Medications Dose Ordered Sig/Marisol Route Start Time Stop Time Status Last Admin Dose Admin Propofol 100 ml @ 2.589 mls/ hr Q24H IV 01/06/25 18:30 01/06/25 21:44 25.89 MLS/HR Midazolam HCl 50 ml @ 1 mls/hr Q24H IV 01/06/25 19:15 01/06/25 22:49 9 MLS/HR Nitroglycerin 0.4 mg Q5MINP PRN SL 01/06/25 20:00 Morphine Sulfate 2 mg Q30M PRN IV 01/06/25 20:00 Ceftriaxone Sodium 50 ml @ 100 mls/hr DAILY@09 IV 01/07/25 09:00 Albuterol 2.5 mg Q6HPRN PRN NEB 01/06/25 20:30 Ipratropium [place] 0.5 mg Q4HR NEB 01/06/25 22:00 Furosemide 20 mg DAILY IV 01/07/25 10:00 Ondansetron HCl 4 mg Q4HP PRN IV 01/06/25 20:30 Enoxaparin Sodium 40 mg DAILY SC 01/07/25 10:00 Acetaminophen 650 mg Q6HP PRN PO 01/06/25 20:30 Fentanyl Citrate 250 ml @ 2.5 mls/hr Q24H IV 01/06/25 20:45 01/06/25 21:22 2.5 MLS/HR Exam Vital Signs Vital Signs Date Time Temp Pulse Resp B/P (MAP) Pulse Ox O2 Delivery O2 Flow Rate FiO2 01/06/25 23:00 93 22 139/84 (102) 91 30 01/06/25 21:00 Mechanical Ventilator+ 01/06/25 17:15 97.6 97.6 Exam Gen: 64-year-old male in no apparent distress Skin: Warm, dry, normal color and texture, no rash. HEENT: Normocephalic atraumatic, mucous membranes moist and pink. Neck: Cervical and supraclavicular nodes normal without enlargement, trachea is midline, thyroid gland is normal without masses. Pulmonary: Intubated, diminished breath sounds bilaterally Cardiac: Regular rate and rhythm. No murmur Abdomen: Soft, nontender, nondistended, bowel sounds present all 4 quadrants, no guarding, no rigidity, no organomegaly. Extremities: No cyanosis, clubbing, no edema Neuro: Sedated Labs/Xrays ORDERING PHYSICIAN: KAILYN BLACKWELL MD PROCEDURE(s): CXR1 - CHEST XRAY 1 VIEW REASON: central line placement ORDER NUMBER(s): [id number], ACCESSION NUMBER(s): [id number] CHEST RADIOGRAPH Indication: central line placement Technique: Single frontal view of the chest was obtained COMPARISON: XY CHEST PORTABLE on DOS: 01/06/25, XY CHEST PORTABLE on DOS: 01/06/25, XY CHEST PORTABLE on DOS: 09/25/23 FINDINGS: Lines and Tubes: Endotracheal tube terminates 4 cm above the mariel. Right-sided central venous catheter is seen with tip in the cavoatrial junction. Enteric tube courses below the diaphragm with tip collimated from view. Lungs: Left midlung atelectasis/scarring. No clear evidence of pneumonia Pleura: No effusion. No pneumothorax. Cardiomediastinal contours: Unremarkable Bones: Unremarkable IMPRESSION: 1. No acute disease. 2. Right -sided central venous catheter is seen with tip in the cavoatrial junction. Labs Test 01/06/25 20:45 01/06/25 20:18 01/06/25 19:38 01/06/25 18:24 Range/Units Troponin I High Sensitivity 14 </=54 ng/L Blood Gas Specimen Type Arterial Blood Gas Sample Site Left radial Blood Gas Patient Temperature 37.0 Arterial Blood Date Drawn [id number] Arterial Blood pH 7.152 *L 7.350-7.450 Arterial Blood Partial Pressure CO2 73.6 *H 35.0-48.0 mmHg Arterial Blood Partial Pressure O2 111.6 H 83.0-108.0 mmHg Arterial Blood HCO3 25.2 21.0-28.0 mmol/L Arterial Blood Oxygen Saturation 96.6 94.0-98.0 % Arterial Blood Base Excess -5.2 L -2.0-3.0 mmol/L Arterial Blood Oxyhemoglobin 94.6 94.0-98.0 % Arterial Blood Carboxyhemoglobin 1.7 H 0.5-1.5 % Arterial Blood Methemoglobin 0.4 0.0-1.5 % Alex Test Modified Blood Gas Total Hemoglobin 13.80 13.5-17.5 g/dL Blood Gas Set Respiration Rate 22.0 Blood Gas Modality Vent - ac FiO2 % 45.0 Blood Gas Tidal Volume 500.0 Blood Gas PEEP or CPAP 5.0 Blood Gas Critical Value Read Back Yes Blood Gas Notified Whom raymond Serrano md Blood Gas Notified Time [id number] Blood Gas Notified By rosa Tate rrt Lactic Acid Level 1.2 0.4-2.0 mmol/L Influenza Type A Antigen Negative Negative Influenza Type B Antigen Negative Negative SARS-CoV-2 Antigen (Rapid) Negative NEGATIVE Test 01/06/25 17:30 Range/Units White Blood Count 11.4 H 4.4-10.8 10^3/uL Red Blood Count 3.86 L 4.5-5.90 10^6/uL Hemoglobin 13.1 L 13.5-17.5 g/dL Hematocrit 39.1 L 41.0-53.0 % Mean Corpuscular Volume 101.3 H 80.0-100.0 fL Mean Corpuscular Hemoglobin 33.8 H 28.0-32.0 pg Mean Corpuscular Hemoglobin Concent 33.4 32.0-36.0 g/dL Red Cell Distribution Width 12.5 11.8-14.3 % Platelet Count 247 140-450 10^3/uL Mean Platelet Volume 7.2 6.9-10.8 fL Neutrophils (%) (Auto) 70.5 37.0-80.0 % Lymphocytes (%) (Auto) 20.5 10.0-50.0 % Monocytes (%) (Auto) 8.5 0.0-12.0 % Eosinophils (%) (Auto) 0.2 0.0-7.0 % Basophils (%) (Auto) 0.3 0.0-2.0 % Neutrophils # (Auto) 8.0 1.6-8.6 10 ^3/uL Lymphocytes # (Auto) 2.3 0.4-5.4 10 ^3/uL Monocytes # (Auto) 1.0 0-1.3 10 ^3/uL Eosinophils # (Auto) 0 0-0.8 10 ^3/uL Basophils # (Auto) 0 0-0.2 10 ^3/uL Nucleated Red Blood Cells 0.0 % D-Dimer, Quantitative 0.87 H 0.0-0.49 mg/L FEU Sodium Level 128 L 136-145 mmol/L Potassium Level 4.4 3.5-5.1 mmol/L Chloride Level 91 L 98-107 mmol/L Carbon Dioxide Level 27 20-31 mmol/L Anion Gap 10 5-15 Blood Urea Nitrogen 8 L 9-23 mg/dL Creatinine 0.77 0.700-1.30 mg/dL Glomerular Filtration Rate Calc 99 >90 mL/min BUN/Creatinine Ratio 10.4 10.0-20.0 Serum Glucose 114 H 74-106 mg/dL Calcium Level 9.5 8.7-10.4 mg/dL B-Type Natriuretic Peptide 46.30 0-100 pg/mL Assessment/Plan Assessment/Plan Assessment Acute hypoxic respiratory failure Community-acquired pneumonia Sepsis Plan Admit the patient to ICU to the hospitalist Pulmonary consultation Rocephin/azithromycin Maintenance IV fluids Med nebs Continue treatment per orders. Plan discussed with: Patient My Orders Orders - CELESTE CONTRERAS AGACNP Procedure Category Date Status Time Nitroglycerin PHA 01/06/25 In Process Sublingual (Ntrostat 20:00 Morphine Sulfate PHA 01/06/25 In Process Injection 20:00 Stat Ekg For Chest SAMI 01/06/25 In Process Pain 19:58 Notify Of Changes SAMI 01/06/25 In Process From Base 19:58 Capsule Filler For SAMI 01/06/25 In Process 24 Hours 19:58 Emergency Dysrhythmia SAMI 01/06/25 In Process Protocol 19:58 Rhythm Strips Once SAMI 01/06/25 In Process Every Shift 19:58 Oxygen By Nasal RT 01/06/25 Transmitted Cannula 19:58 Admit ADMIT 01/06/25 Transmitted 20:03 Ceftriaxone 1gm/50ml PHA 01/07/25 In Process D5w (Rocephin) 09:00 Albuterol Medneb PHA 01/06/25 In Process (Ventolin Medneb) 20:30 Ipratropium Medneb PHA 01/06/25 In Process (Atrovent Medneb) 22:00 Echo 2d Mode Cardiac US 01/06/25 Logged DOP 20:18 Furosemide Injection PHA 01/07/25 In Process (Lasix Injection) 10:00 *Consult CONS 01/06/25 Transmitted / 20:18 Ondansetron Hcl PHA 01/06/25 In Process (Zofran) 20:30 Enoxaparin Sodium PHA 01/07/25 In Process (Lovenox) 10:00 Complete Blood Count LAB 01/07/25 Transmitted 04:00 Comprehensive LAB 01/07/25 Transmitted Metabolic Panel 04:00 Condition: Critical SAMI 01/06/25 In Process 20:18 Acetaminophen Tablet PHA 01/06/25 In Process (Tylenol Tablet) 20:30 Bedrest With Bathroom SAMI 01/06/25 In Process Privileg 20:18 Fentanyl Drip PHA 01/06/25 In Process 2500mcg/250mlns 20:45 Rass Sedation Scale SAMI 01/06/25 In Process 20:40 Ventilator Orders RT 01/06/25 Transmitted 22:46 Abg W/ Co-Ox RT 01/07/25 Logged 00:00 Date of Service: Jan 06, 2025 Billing Provider: CELESTE CONTRERAS Common Visit Codes: [id number] CARE 30-74 MIN CELESTE CONTRERAS Jan 07, 2025 00:09
[2025-01-07 00:28] LABS: Base Excess 1.1 mmol/L (-2.0-3.0)
[2025-01-07] MEDS: VANCOMYCIN 1GM/250ML KIT 250 ML IV ONE (01:33)
[2025-01-07] MEDS: IPRATROPIUM BROM 0.5 MG/2.5ML INH SOL NEB SCH (02:00)
[2025-01-07] MEDS: ALBUTEROL SULF 2.5 MG/0.5ML(0.5%) NEB SOLN NEB PRN (02:25)
[2025-01-07 03:34] LABS: Basophils # (auto) 0 10 ^3/uL (0-0.2); Basophils % (auto) 0.1 % (0.0-2.0); Eosinophils # (auto) 0 10 ^3/uL (0-0.8); Hematocrit 34.1 % (41.0-53.0); Hemoglobin 11.9 g/dL (13.5-17.5); Lymphocytes # (auto) 0.8 10 ^3/uL (0.4-5.4); Lymphocytes % (auto) 6.6 % (10.0-50.0); Mean Corpuscular Hemoglobin 34.9 pg (28.0-32.0); Mean Corpuscular Hgb Conc. 34.7 g/dL (32.0-36.0); Mean Corpuscular Volume 100.6 fL (80.0-100.0); Monocytes # (auto) 0.6 10 ^3/uL (0-1.3); Monocytes % (auto) 5.4 % (0.0-12.0); Neutrophils # (auto) 10.3 10 ^3/uL (1.6-8.6); Neutrophils % (auto) 87.9 % (37.0-80.0); Platelet Count (auto) 210 10^3/uL (140-450); Red Blood Cells 3.39 10^6/uL (4.5-5.90); Red Cell Distribution Width 12.6 % (11.8-14.3); White Blood Cell 11.7 10^3/uL (4.4-10.8)
[2025-01-07 03:43] LABS: Albumin 4.3 g/dL (3.2-4.8); Alkaline Phosphatase 71 U/L (46-116); Anion Gap 7 (5-15); Bilirubin, Total 0.6 mg/dL (0.2-1.0); Carbon Dioxide 29 mmol/L (20-31); Magnesium 1.8 mg/dL (1.6-2.6); Potassium 3.8 mmol/L (3.5-5.1); Total Protein 6.2 g/dL (5.7-8.2)
[2025-01-07 04:02] LABS: Alanine Aminotransferase 47 U/L (7-40); Aspartate Aminotransferase 70 U/L (13-40); Blood Urea Nitrogen 8 mg/dL (9-23); Calcium 8.5 mg/dL (8.7-10.4); Chloride 93 mmol/L (98-107); Glucose 147 mg/dL (74-106); Sodium 129 mmol/L (136-145)
[2025-01-07 04:15] LABS: BUN/Creatinine Ratio 11.9 (10.0-20.0)
[2025-01-07 08:04] LABS: Base Excess 0.6 mmol/L (-2.0-3.0)
[2025-01-07] MEDS: cefTRIAXone 1GM/50ML D5W 50 ML IV SCH (09:03)
[2025-01-07] MEDS: FUROSEMIDE 20 MG/2 ML VIAL IV SCH (10:05)
[2025-01-07] MEDS: ENOXAPARIN SOD 40 MG/0.4 ML SYRINGE SC SCH (10:07)
--- NOTE | 2025-01-07 10:56 | DVHINCON2 ---
Date of service: Jan 06, 2025 Referring Physician Ace Lambert NP Reason for Consultation Acute hypoxic respiratory failure requiring mechanical ventilator, AE COPD. History of Present Illness A 64-year-old man with PMHx of COPD, hypertension, and GERD who presented to ED today with c/o shortness of breath. Patient presented with a 1-day history of worsening shortness of breath. He has been using his inhaler and nebulizer at home without relief of the symptoms. On arrival patient was saturating in the 70s, became progressively more obtunded. Patient was intubated for airway protection. He was admitted for further care and pulmonary consultation is requested for evaluation and management of acute hypoxic respiratory failure requiring mechanical ventilator. Review of Systems: Unable to obtain d/t intubated status Past Medical History: Hypertension, GERD, COPD Past Surgical History: None Medications: Reviewed. Allergies: No known drug allergies. Family History: Alzheimer's disease Arthritis Diabetes mellitus Dementia Myocardial infarction Gastroesophageal reflux disease Heart murmur Hypertension Peripheral arterial disease Social History: Smoker, <1 pack per day. Occasional alcohol use. No illicit drug use. Family History: Alzheimer's disease G8 MOTHER Arthritis G8 FATHER Diabetes mellitus G8 MOTHER FH: dementia G8 FATHER FH: myocardial infarction G8 FATHER Gastroesophageal reflux disease G8 FATHER Heart murmur G8 FATHER Hypertension G8 FATHER Peripheral arterial disease G8 FATHER Allergies: Coded Allergies: NO KNOWN ALLERGIES (Unverified , 09/17/21) Home Meds Active Scripts Methylprednisolone (Medrol Dosepak) 4 Mg Simon, 4 MG PO UD, #21 TAB UAD Prov:THERON HERNANDEZ MD 09/26/23 Azithromycin (ZITHROMAX TABLET) 250 Mg Tb, 250 MG PO DAILY, #6 TAB Take 2 tabs first day then one tab until finish Prov:THERON HERNANDEZ MD 09/26/23 Reported Medications Omeprazole (Gnp Omeprazole) 20 Mg Tab, 2 TAB PO DAILY, #90 TAB 1 Refill 09/26/23 Tiotropium Gamerco Monohydrate (Spiriva Respimat) 2.5 Mcg/Act Spr, 2 PUFF PO DAILY 09/26/23 Albuterol Sulfate (Albuterol Sulfate Hfa) 108 Mcg/Act Aer, 2 PUFF PO Q6HPRN PRN for SHORTNESS OF BREATH 09/26/23 Nicotine (Nicotine Transdermal Syst) 21 Mg/24 Hr Dis, 1 PATCH TOP DAILY 09/26/23 Fluticasone-Salmeterol (Advair Diskus 100-50 Mcg/Dose) 1 Aer Aer 09/26/23 Current Medications Current Medications Medications (Trade) Dose Ordered Sig/Marisol Route PRN Reason Start Time Stop Time Status Last Admin Magnesium Sulfate/ Dextrose 100 ml @ 100 mls/hr Q1H IV 01/06/25 17:45 01/06/25 19:44 DC Propofol 100 ml @ 2.589 mls/ hr Q24H IV 01/06/25 18:30 01/06/25 21:44 Midazolam HCl 50 ml @ 1 mls/hr Q24H IV 01/06/25 19:15 01/07/25 08:50 Nitroglycerin (Ntrostat Sublingual) 0.4 mg Q5MINP PRN SL FOR CHEST PAIN 01/06/25 20:00 Morphine Sulfate 2 mg Q30M PRN IV FOR CHEST PAIN 01/06/25 20:00 Ceftriaxone Sodium 50 ml @ 100 mls/hr DAILY@09 IV 01/07/25 09:00 01/07/25 09:03 Albuterol (Ventolin Medneb) 2.5 mg Q6HPRN PRN NEB SHORTNESS OF BREATH 01/06/25 20:30 01/07/25 06:24 Ipratropium [place] (Atrovent Medneb) 0.5 mg Q4HR NEB 01/06/25 22:00 01/07/25 09:47 Furosemide (Lasix Injection) 20 mg DAILY IV 01/07/25 10:00 01/07/25 10:05 Ondansetron HCl (Zofran) 4 mg Q4HP PRN IV NAUSEA / VOMITING 01/06/25 20:30 Enoxaparin Sodium (Lovenox) 40 mg DAILY SC 01/07/25 10:00 01/07/25 10:07 Acetaminophen (Tylenol Tablet) 650 mg Q6HP PRN PO PAIN SCALE 1-3 OR TEMP>100.4 01/06/25 20:30 Fentanyl Citrate 250 ml @ 2.5 mls/hr Q24H IV 01/06/25 20:45 01/06/25 21:22 Vital Signs Vital Signs Date Time Temp Pulse Resp B/P (MAP) Pulse Ox O2 Delivery O2 Flow Rate FiO2 01/07/25 10:05 102/68 01/07/25 09:47 72 22 96 30 01/07/25 06:45 99.1 210.4 01/07/25 06:00 Mechanical Ventilator+ Physical Exam Gen.: Patient lying in bed in medical ICU. Sedated, intubated on mechanical ventilator. Head: Normocephalic, atraumatic. Eyes: PERRLA. Ears: Normal external anatomy. Throat: Endotracheal tube and orogastric tube in place. Neck: Supple, trachea midline. Chest: Transmitted breath sounds bilaterally. Decreased air entry bilaterally. No wheezing. Bibasilar crackles. Cardiovascular: Positive S1, positive S2. Regular rate and rhythm. Abdomen: Positive bowel sounds in all 4 quadrants. Soft, nontender, nondisten ded. : Mak in place. Normal external genitalia. Rectal: Deferred. Skin: Warm, dry. Intact. Extremities: 2+ radial pulses bilaterally. No lower extremity edema. Neuro: Sedated. Labs/Diagnostic Data Labs Test 01/07/25 07:42 01/07/25 02:53 01/06/25 20:45 01/06/25 20:18 Range/Units Blood Gas Specimen Type Arterial Blood Gas Sample Site Left radial Blood Gas Patient Temperature 37.0 Arterial Blood Date Drawn [id number] Arterial Blood pH 7.415 7.350-7.450 Arterial Blood Partial Pressure CO2 40.1 35.0-48.0 mmHg Arterial Blood Partial Pressure O2 72.4 L 83.0-108.0 mmHg Arterial Blood HCO3 25.1 21.0-28.0 mmol/L Arterial Blood Oxygen Saturation 94.0 94.0-98.0 % Arterial Blood Base Excess 0.6 -2.0-3.0 mmol/L Arterial Blood Oxyhemoglobin 92.6 L 94.0-98.0 % Arterial Blood Carboxyhemoglobin 1.2 0.5-1.5 % Arterial Blood Methemoglobin 0.3 0.0-1.5 % Alex Test Modified Blood Gas Total Hemoglobin 12.70 L 13.5-17.5 g/dL Blood Gas Set Respiration Rate 22.0 Blood Gas Modality Vent - ac FiO2 % 30.0 Blood Gas Tidal Volume 600.0 Blood Gas PEEP or CPAP 5.0 Specimen Drawn By White Blood Count 11.7 H 4.4-10.8 10^3/uL Red Blood Count 3.39 L 4.5-5.90 10^6/uL Hemoglobin 11.9 L 13.5-17.5 g/dL Hematocrit 34.1 #L 41.0-53.0 % Mean Corpuscular Volume 100.6 H 80.0-100.0 fL Mean Corpuscular Hemoglobin 34.9 H 28.0-32.0 pg Mean Corpuscular Hemoglobin Concent 34.7 32.0-36.0 g/dL Red Cell Distribution Width 12.6 11.8-14.3 % Platelet Count 210 140-450 10^3/uL Mean Platelet Volume 7.3 6.9-10.8 fL Neutrophils (%) (Auto) 87.9 H 37.0-80.0 % Lymphocytes (%) (Auto) 6.6 L 10.0-50.0 % Monocytes (%) (Auto) 5.4 0.0-12.0 % Eosinophils (%) (Auto) 0.0 0.0-7.0 % Basophils (%) (Auto) 0.1 0.0-2.0 % Neutrophils # (Auto) 10.3 H 1.6-8.6 10 ^3/uL Lymphocytes # (Auto) 0.8 0.4-5.4 10 ^3/uL Monocytes # (Auto) 0.6 0-1.3 10 ^3/uL Eosinophils # (Auto) 0 0-0.8 10 ^3/uL Basophils # (Auto) 0 0-0.2 10 ^3/uL Nucleated Red Blood Cells 0.0 % Sodium Level 129 L 136-145 mmol/L Potassium Level 3.8 3.5-5.1 mmol/L Chloride Level 93 L 98-107 mmol/L Carbon Dioxide Level 29 20-31 mmol/L Anion Gap 7 5-15 Blood Urea Nitrogen 8 L 9-23 mg/dL Creatinine 0.67 L 0.700-1.30 mg/dL Glomerular Filtration Rate Calc 103 >90 mL/min BUN/Creatinine Ratio 11.9 10.0-20.0 Serum Glucose 147 H 74-106 mg/dL Calcium Level 8.5 L 8.7-10.4 mg/dL Magnesium Level 1.8 1.6-2.6 mg/dL Total Bilirubin 0.6 0.2-1.0 mg/dL Aspartate Amino Transferase (AST) 70 H 13-40 U/L Alanine Aminotransferase (ALT) 47 H 7-40 U/L Alkaline Phosphatase 71 46-116 U/L Total Protein 6.2 5.7-8.2 g/dL Albumin 4.3 3.2-4.8 g/dL Troponin I High Sensitivity 14 </=54 ng/L Blood Gas Critical Value Read Back Yes Blood Gas Notified Whom raymond Serrano md Blood Gas Notified Time [id number] Blood Gas Notified By rosa Tate rrt Test 01/06/25 19:38 01/06/25 18:24 01/06/25 17:30 Range/Units Lactic Acid Level 1.2 0.4-2.0 mmol/L Influenza Type A Antigen Negative Negative Influenza Type B Antigen Negative Negative SARS-CoV-2 Antigen (Rapid) Negative NEGATIVE D-Dimer, Quantitative 0.87 H 0.0-0.49 mg/L FEU B-Type Natriuretic Peptide 46.30 0-100 pg/mL Microbiology Date/Time Source Procedure Growth Status 01/06/25 19:48 Urine - Mak Port Urine Culture - Preliminary Resulted 01/06/25 18:00 Sputum Gram Stain Pending Resulted 01/06/25 18:00 Sputum Respiratory Culture - Preliminary Resulted Assessment Impression: Acute hypoxic respiratory failure On mechanical ventilator Acute COPD exacerbation Hyponatremia Nicotine dependence Plan: s/p intubation on mechanical ventilator. ABG reviewed, compensated. On AC mode; RR 22, VT 600, PEEP 5, FiO2 of 30% Titrate FIO2 to keep O2 saturation above 90%. VAP bundle. Daily ABG and CXR while intubated Sedate for ventilator synchrony - on Versed Continue bronchodilators q.4 hours. IV steroids Continue antibiotics. F/u cultures. Start pressors if necessary to maintain a mean arterial blood pressure greater than 65 mmHg. Monitor renal function Monitor electrolytes. Supplement as necessary. Monitor ins and outs. Monitor hyponatremia - sodium 129 Updated at bedside. GI prophylaxis. DVT prophylaxis. Prognosis: Poor given patient's multiple co-morbidities. Condition: Critical Rest of plan per hospitalist and other consultants. A total of 35 minutes of critical care time was spent reviewing the patient record, examining the patient, making a diagnostic and therapeutic plan, discussing this plan with the medical personnel, following up on diagnostic studies and following the patient for clinical stability excluding any and all procedures. At least 50% of this time was spent in direct, [id number] contact. Thank you, HELEN Lambert, for allowing me to participate in this patient's care. Further recommendations will depend on the patient's clinical course. Please do not hesitate to contact me if you have any questions or concerns. This medical document was created using an electronic medical record system with [employer] dictation system. Although these documentations are being carefully reviewed, there may still be some phonetic and typographical changes. The errors are purely typographical, due to imperfection on the software program, and do not reflect any compromise in the patient's medical care. Plan discussed with: Spouse, Other (GIFTY Calderon/HELEN Lambert/) MARITZA SERRANO MD Jan 07, 2025 10:56
[2025-01-07] MEDS: ALBUTEROL SULF 2.5 MG/0.5ML(0.5%) NEB SOLN NEB SCH (11:00)
--- NOTE | 2025-01-07 12:11 | DVH ---
EXAM: XY CHEST XRAY 1 VIEW Indication: INTERVAL CHANGES, ON MECH VENT Technique: Single frontal view of the chest was obtained Comparison: XY CHEST XRAY 1 VIEW on DOS: 01/06/25, XY CHEST PORTABLE on DOS: 01/06/25, XY CHEST PORTABL E on DOS: 01/06/25, XY CHEST PORTABLE on DOS: 09/25/23, XY CHEST XRAY 1 VIEW on DOS: 01/06/25 FINDINGS: Lines and Tubes: Endotracheal tube terminates 4 cm above the mariel. Right-sided central venous erica ter is seen with tip in the cavoatrial junction. Enteric tube courses below the diaphragm with tip co llimated from view. Lungs: Left midlung atelectasis/scarring. No clear evidence of pneumonia Pleura: No effusion. No pneumothorax. Cardiomediastinal contours: Unremarkable Bones: Unremarkable IMPRESSION: 1. No significant change compared to prior exam.
[2025-01-07] MEDS: methylPREDNISolone SOD SUCC 40 MG/ML VL IV SCH (12:14)
--- NOTE | 2025-01-07 12:46 | DVHPN2 ---
Subjective Chemically sedated Reviewed: Care Plan, H&P, Labs, Medications Changes from previous H/P or p: No Changes General: Per HPI Objective Vitals Vital Signs Date Time Temp Pulse Resp B/P (MAP) Pulse Ox O2 Delivery O2 Flow Rate FiO2 01/07/25 11:53 69 22 102/67 (79) 95 30 01/07/25 10:45 98.8 209.8 01/07/25 06:00 Mechanical Ventilator+ Intake/Output Intake and Output 01/07/25 07:00 Intake Total 2870.814 ml Output Total 2450 ml Balance 420.814 ml Intake Oral 0 ml IV Total 2870.814 ml Output Urine Total 2450 ml General Appearance: mild distress HEENT: Atraumatic, PERRLA Lungs: Clear to auscultation, Other (Mechanical ventilation) Cardiovascular: Normal S1, Normal S2 Abdomen: Normal bowel sounds Musculoskeletal: Other (Unable to assess) Psych/Mental Status: Other (Unable to assess) Medications Current Medications Medications Dose Ordered Sig/Marisol Route Start Time Stop Time Status Last Admin Dose Admin Propofol 100 ml @ 2.589 mls/ hr Q24H IV 01/06/25 18:30 01/06/25 21:44 25.89 MLS/HR Midazolam HCl 50 ml @ 1 mls/hr Q24H IV 01/06/25 19:15 01/07/25 08:50 9 MLS/HR Nitroglycerin 0.4 mg Q5MINP PRN SL 01/06/25 20:00 Morphine Sulfate 2 mg Q30M PRN IV 01/06/25 20:00 Ceftriaxone Sodium 50 ml @ 100 mls/hr DAILY@09 IV 01/07/25 09:00 01/07/25 09:03 100 MLS/HR Ipratropium [place] 0.5 mg Q4HR NEB 01/06/25 22:00 01/07/25 09:47 0.5 MG Furosemide 20 mg DAILY IV 01/07/25 10:00 01/07/25 10:05 20 MG Ondansetron HCl 4 mg Q4HP PRN IV 01/06/25 20:30 Enoxaparin Sodium 40 mg DAILY SC 01/07/25 10:00 01/07/25 10:07 40 MG Acetaminophen 650 mg Q6HP PRN PO 01/06/25 20:30 Fentanyl Citrate 250 ml @ 2.5 mls/hr Q24H IV 01/06/25 20:45 01/06/25 21:22 2.5 MLS/HR Methylprednisolone Sodium Succinate 40 mg Q6HR IV 01/07/25 12:00 01/07/25 12:14 40 MG Albuterol 2.5 mg Q4HR NEB 01/07/25 11:00 Azithromycin 250 ml @ 125 mls/hr DAILY IV 01/08/25 10:00 Budesonide 0.5 mg BID NEB 01/07/25 22:00 Laboratory Results Laboratory Tests 01/07/25 02:53 Chemistry Test 01/06/25 17:30 01/07/25 02:53 Calcium Level 9.5 mg/dL (8.7-10.4) 8.5 mg/dL (8.7-10.4) L Albumin 4.3 g/dL (3.2-4.8) Magnesium Level 1.8 mg/dL (1.6-2.6) Total Protein 6.2 g/dL (5.7-8.2) Coagulation Test 01/06/25 17:30 D-Dimer, Quantitative 0.87 mg/L FEU (0.0-0.49) H Cardiac Markers Test 01/06/25 17:30 B-Type Natriuretic Peptide 46.30 pg/mL (0-100) LFT Test 01/07/25 02:53 Alanine Aminotransferase (ALT) 47 U/L (7-40) H Alkaline Phosphatase 71 U/L (46-116) Aspartate Amino Transferase (AST) 70 U/L (13-40) H Total Bilirubin 0.6 mg/dL (0.2-1.0) Blood Gas Results Test 01/06/25 20:18 01/07/25 00:14 01/07/25 07:42 Arterial Blood pH 7.152 (7.350-7.450) 7.398 (7.350-7.450) 7.415 (7.350-7.450) FiO2 % 45.0 30.0 30.0 Microbiology Microbiology Date/Time Source Procedure Growth Status 01/06/25 19:48 Urine - Mak Port Urine Culture - Preliminary Resulted 01/06/25 18:00 Sputum Gram Stain Pending Resulted 01/06/25 18:00 Sputum Respiratory Culture - Preliminary Resulted Labs and/or images reviewed: Labs reviewed by me, Image(s) reviewed by me Assessment/Plan Assessment/Plan Impression: -acute hypoxic respiratory failure -acute COPD exacerbation -primary hypertension -GERD Plan: -patient currently on mechanical ventilation with normal ABG at this time with current settings. -continue vent settings per pulmonology -continue bronchodilators, Solu-Medrol. Add Pulmicort 0.5 mg med nebs b.i.d. -PUD, DVT prophylaxis -antibiotic therapy with Rocephin and azithromycin -repeat chest x-ray, labs, ABG in a.m. -re-evaluate for spontaneous breathing trial in a.m. Critical care time spent with patient discussing and formulating plan of care: 40 minutes. This does not include time spent performing procedures. This medical document was created using an electronic medical record system with [employer] dictation system. Although this document has been carefully reviewed, there may still be some phonetic and typographical errors. These areas are purely typographical due to imperfections of the software programs, and do not reflect any compromise in the patient's medical care. Plan discussed with: Patient, Other (RN) My Orders Orders - SANTY SUAREZ NP Procedure Category Date Status Time Azithromycin 500mg/ PHA 01/08/25 In Process 250ml (Zithromax 50 10:00 Budesonide PHA 01/07/25 In Process (Inhalation) 22:00 Basic Metabolic Panel LAB 01/08/25 Verified 04:00 Chest Portable XY 01/08/25 Transmitted 04:00 Abg W/ Co-Ox RT 01/08/25 Transmitted 04:00 Date of Service: Jan 07, 2025 Billing Provider: SANTY SUAREZ NP Common Visit Codes: [id number] CARE 30-74 MIN SANTY SUAREZ NP Jan 07, 2025 12:46
[2025-01-07] MEDS: MAGNESIUM SULFATE 1GM/100ML 100 ML IV SCH (13:12)
[2025-01-07] MEDS: BUDESONIDE (INHALATION) 0.5 MG/2 ML NEB NEB SCH (22:21)
[2025-01-08] VITALS (104 sets, daily range): BP systolic 100–175; BP diastolic 61–109; PULSE 55–117; RESP 10–29; TEMP 40.6; O2SAT 87–100
[2025-01-08 04:27] LABS: Anion Gap 6 (5-15); Carbon Dioxide 30 mmol/L (20-31)
[2025-01-08 04:33] LABS: BUN/Creatinine Ratio 19.4 (10.0-20.0); Blood Urea Nitrogen 14 mg/dL (9-23)
[2025-01-08 04:37] LABS: Calcium 8.7 mg/dL (8.7-10.4); Chloride 95 mmol/L (98-107); Glucose 121 mg/dL (74-106); Sodium 131 mmol/L (136-145)
--- NOTE | 2025-01-08 06:06 | DVH ---
EXAM: XR Chest, 1 View CLINICAL INDICATION: respiratory failure TECHNIQUE: Frontal view of the chest. COMPARISON: XY CHEST XRAY 1 VIEW on DOS: 01/07/25, XY CHEST XRAY 1 VIEW on DOS: 01/06/25, XY CHEST PO RTABLE on DOS: 01/06/25, XY CHEST PORTABLE on DOS: 01/06/25, XY CHEST PORTABLE on DOS: 09/25/23 FINDINGS: LUNGS AND PLEURAL SPACES: Mild pulmonary congestion. No consolidation. No pneumothorax. HEART: Unremarkable. No cardiomegaly. MEDIASTINUM: Unremarkable. Normal mediastinal contour. BONES/JOINTS: Unremarkable. No acute fracture. TUBES, LINES AND DEVICES: Right internal jugular central venous catheter tip in the superior vena c brooks. The endotracheal tube (ETT) is in satisfactory position. Enteric tube tip cannot be seen but i s below the diaphragm. OTHER FINDINGS: . None. . .. IMPRESSION: Mild pulmonary congestion. Right mid lung field atelectasis or scarring.
[2025-01-08 09:10] LABS: Basophils # (auto) 0 10 ^3/uL (0-0.2); Basophils % (auto) 0.1 % (0.0-2.0); Eosinophils # (auto) 0 10 ^3/uL (0-0.8); Hemoglobin 11.9 g/dL (13.5-17.5); Lymphocytes # (auto) 0.6 10 ^3/uL (0.4-5.4); Monocytes # (auto) 0.6 10 ^3/uL (0-1.3)
[2025-01-08 09:13] LABS: Hematocrit 35.2 % (41.0-53.0); Mean Corpuscular Hemoglobin 34.5 pg (28.0-32.0); Mean Corpuscular Hgb Conc. 33.8 g/dL (32.0-36.0); Monocytes % (auto) 6.6 % (0.0-12.0); Neutrophils # (auto) 8.5 10 ^3/uL (1.6-8.6); Neutrophils % (auto) 87.3 % (37.0-80.0); Platelet Count (auto) 221 10^3/uL (140-450); Red Blood Cells 3.45 10^6/uL (4.5-5.90); Red Cell Distribution Width 12.2 % (11.8-14.3); White Blood Cell 9.8 10^3/uL (4.4-10.8)
[2025-01-08] MEDS: PIPERACILLIN-TAZOB 3.375GM 100 ML IV ONE (09:27)
[2025-01-08] MEDS: AZITHROMYCIN 500MG/ 250ML 250 ML IV SCH (09:56)
[2025-01-08] MEDS: PANTOPRAZOLE 40 MG/10 ML VIAL INJ IV SCH (10:18)
--- NOTE | 2025-01-08 10:27 | DVHPN2 ---
Subjective Chemically sedated Reviewed: Care Plan, H&P, Labs, Medications Changes from previous H/P or p: No Changes General: Per HPI Objective Vitals Vital Signs Date Time Temp Pulse Resp B/P (MAP) Pulse Ox O2 Delivery O2 Flow Rate FiO2 01/08/25 10:09 81 22 124/72 (89) 93 30 01/08/25 07:00 98.8 209.8 01/08/25 06:00 Mechanical Ventilator+ Intake/Output Intake and Output 01/08/25 07:00 Intake Total 463.0 ml Output Total 1000 ml Balance -537.0 ml IV Total 463.0 ml Output Urine Total 1000 ml General Appearance: mild distress HEENT: Atraumatic, PERRLA Lungs: Clear to auscultation, Other (Mechanical ventilation) Cardiovascular: Normal S1, Normal S2 Abdomen: Normal bowel sounds Musculoskeletal: Other (Unable to assess) Skin: Dry, Intact Psych/Mental Status: Other (Unable to assess) Medications Current Medications Medications Dose Ordered Sig/Marisol Route Start Time Stop Time Status Last Admin Dose Admin Propofol 100 ml @ 2.589 mls/ hr Q24H IV 01/06/25 18:30 01/06/25 21:44 25.89 MLS/HR Midazolam HCl 50 ml @ 1 mls/hr Q24H IV 01/06/25 19:15 01/08/25 05:58 10 MLS/HR Nitroglycerin 0.4 mg Q5MINP PRN SL 01/06/25 20:00 Morphine Sulfate 2 mg Q30M PRN IV 01/06/25 20:00 Ipratropium [place] 0.5 mg Q4HR NEB 01/06/25 22:00 01/08/25 10:09 0.5 MG Furosemide 20 mg DAILY IV 01/07/25 10:00 01/08/25 09:55 20 MG Ondansetron HCl 4 mg Q4HP PRN IV 01/06/25 20:30 Enoxaparin Sodium 40 mg DAILY SC 01/07/25 10:00 01/08/25 09:55 40 MG Acetaminophen 650 mg Q6HP PRN PO 01/06/25 20:30 Fentanyl Citrate 250 ml @ 2.5 mls/hr Q24H IV 01/06/25 20:45 01/08/25 01:35 12.5 MLS/HR Methylprednisolone Sodium Succinate 40 mg Q6HR IV 01/07/25 12:00 01/08/25 06:08 40 MG Albuterol 2.5 mg Q4HR NEB 01/07/25 11:00 01/08/25 10:09 2.5 MG Azithromycin 250 ml @ 125 mls/hr DAILY IV 01/08/25 10:00 01/08/25 09:56 125 MLS/HR Budesonide 0.5 mg BID NEB 01/07/25 22:00 01/08/25 06:33 0.5 MG Piperacillin Sod/ Tazobactam Sod 100 ml @ 25 mls/hr Q8HR IV 01/08/25 17:00 Pantoprazole Sodium 40 mg BID IV 01/08/25 10:00 01/08/25 10:18 40 MG Laboratory Results Laboratory Tests 01/08/25 03:00 Chemistry Test 01/08/25 03:00 Calcium Level 8.7 mg/dL (8.7-10.4) Microbiology Microbiology Date/Time Source Procedure Growth Status 01/07/25 00:40 Nose MRSA Screen - Final Complete 01/06/25 19:48 Urine - Mak Port Urine Culture - Preliminary Resulted 01/06/25 18:00 Sputum Gram Stain - Final Resulted 01/06/25 18:00 Sputum Respiratory Culture - Preliminary Resulted 01/06/25 17:30 Blood Blood Culture - Preliminary NO GROWTH AFTER 24 HOURS OF INCUBATION. Resulted Labs and/or images reviewed: Labs reviewed by me, Image(s) reviewed by me Assessment/Plan Assessment/Plan Impression: -acute hypoxic respiratory failure -acute COPD exacerbation -primary hypertension -GERD Plan: -events: No events overnight. -spontaneous breathing trial today. Wean sedation, use Precedex as needed -continue vent settings per pulmonology -continue bronchodilators, Solu-Medrol. Add Pulmicort 0.5 mg med nebs b.i.d. -PUD, DVT prophylaxis -antibiotic therapy with Rocephin and azithromycin -repeat chest x-ray, labs, ABG in a.m. -discussed plan of care with patient's family who were bedside. All questions answered. Critical care time spent with patient discussing and formulating plan of care: 90 minutes. This does not include time spent performing procedures. This medical document was created using an electronic medical record system with [employer] system. Although this document has been carefully reviewed, there may still be some phonetic and typographical errors. These areas are purely typographical due to imperfections of the software programs, and do not reflect any compromise in the patient's medical care. Plan discussed with: Patient, Spouse, Son, Other (RN) My Orders Orders - SANTY SUAREZ NP Procedure Category Date Status Time Azithromycin 500mg/ PHA 01/08/25 In Process 250ml (Zithromax 50 10:00 Budesonide PHA 01/07/25 In Process (Inhalation) 22:00 Chest Portable XY 01/08/25 Resulted 04:00 Abg W/ Co-Ox RT 01/08/25 Transmitted 04:00 Piperacillin-Tazob PHA 01/08/25 In Process 3.375gm (Zosyn 3.375g 17:00 Cpap Trial For Am ORDERS 01/08/25 Transmitted 08:43 Cpap/Sed Vacation Med ORDERS 01/08/25 Transmitted Weaning 08:43 Basic Metabolic Panel LAB 01/09/25 Verified 04:00 Chest Portable XY 01/09/25 Logged 04:00 Complete Blood Count LAB 01/09/25 Verified 04:00 Pantoprazole PHA 01/08/25 In Process (Protonix) 10:00 Kub Abdomen Single XY 01/08/25 Logged View 08:55 Date of Service: Jan 08, 2025 Billing Provider: SANTY SUAREZ NP Common Visit Codes: [id number] CARE 30-74 MIN, [id number] CARE-EACH +30MIN SANTY SUAREZ NP Jan 08, 2025 10:27
[2025-01-08 11:03] LABS: Base Excess 3.6 mmol/L (-2.0-3.0)
--- NOTE | 2025-01-08 11:29 | DVH ---
Date: 01/08/2025 10:37 AM Examination: XY KUB ABDOMEN SINGLE VIEW History: distended abdomen Comparison: None TECHNIQUE: Frontal views of the abdomen was obtained. FINDINGS/IMPRESSION: Bowel gas pattern is unremarkable. Moderate stool burden. Endotracheal tube tip projects over the pro ximal stomach with side port projecting near the gastroesophageal junction. Recommend advancement. C atheter projects over the pelvis. The lung bases are unremarkable. No acute osseous abnormality identified.
--- NOTE | 2025-01-08 15:53 | DVHSR ---
APPROVED REPORT EXAM: Two-dimensional and M-mode echocardiogram with Doppler and color Doppler. Blood Pressure: 133/71 mmHg INDICATION EF RISK FACTORS Height: 6'1", Weight: 203 DIMENSIONS LVDd4.7 (3.8-5.7cm)LA (2D)3.6 (1.9-4.0cm)Aortic Root (2.0-3.7cm) LVDs3.4 (2.5-4.0cm)LA (MM) (1.9-4.0cm)Aortic Cusp Exc (1.5-2.0cm) EF (%) 55.0 (55-70%)Rt. Atrium4.2 (1.9-4.0cm)Asc. Aorta cm IVSd0.9 (0.7-1.1cm)RV (D)3.6 (1.8-2.4cm) Mitral Valve MitralMitral Stenosis E wave0.52m/sMV Mean GR.mmHg A wave0.93m/sMV Peak GR.mmHg E/A ratio0.62D MVAcm2 DECEL [id number] 1/2 Timems Aortic Valve Aortic ValveAortic Stenosis V11.25m/Brian Mean GR.4mmHg V21.25m/Brian Peak GR.6mmHg LVOT Diameter1.9 (1.8-2.4cm)Doppler AVA2.83cm2 Other Information Quality : Technically LimitedRhythm : Technically limited study due to on vent. Conclusion lvef 50-55% by visual estimate normal RV function, normal atria no severe valve abnormalities noted
[2025-01-08] MEDS: PIPERACILLIN-TAZOB 3.375GM 100 ML IV SCH (17:42)
[2025-01-08] MEDS: DOCUSATE ORAL LIQUID 100 MG/10 ML UD GT ONE (17:58)
--- NOTE | 2025-01-08 20:40 | DVHPN2 ---
Progress Note - Dictate Date Seen: Jan 07, 2025 Medical Necessity Reason Pt with a Central, PICC or Fol: Yes The following are medically ne: Central Line, Yao Catheter Reason for yao catheter: Strict I&O Subjective Patient seen and examined at bedside. Sedated, intubated mechanical ventilator. Overnight events reviewed. vital signs Vital Sign Date Time Temp Pulse Resp B/P (MAP) Pulse Ox O2 Delivery O2 Flow Rate FiO2 01/08/25 20:17 60 22 112/73 (86) 96 30 01/08/25 18:30 97.0 206.6 01/08/25 18:00 Mechanical Ventilator+ Total Intake and Output 01/07/25 01/07/25 01/08/25 15:00 23:00 07:00 Intake Total 182.0 ml 132.0 ml 171.5 ml Output Total 600 ml 400 ml Balance 182.0 ml -468.0 ml -228.5 ml medications Current Medications Medications Dose Ordered Sig/Marisol Route Start Time Stop Time Status Last Admin Dose Admin Propofol 100 ml @ 2.589 mls/ hr Q24H IV 01/06/25 18:30 01/06/25 21:44 25.89 MLS/HR Midazolam HCl 50 ml @ 1 mls/hr Q24H IV 01/06/25 19:15 01/08/25 16:07 10 MLS/HR Nitroglycerin 0.4 mg Q5MINP PRN SL 01/06/25 20:00 Morphine Sulfate 2 mg Q30M PRN IV 01/06/25 20:00 Ipratropium [place] 0.5 mg Q4HR NEB 01/06/25 22:00 01/08/25 18:29 0.5 MG Furosemide 20 mg DAILY IV 01/07/25 10:00 01/08/25 09:55 20 MG Ondansetron HCl 4 mg Q4HP PRN IV 01/06/25 20:30 Enoxaparin Sodium 40 mg DAILY SC 01/07/25 10:00 01/08/25 09:55 40 MG Acetaminophen 650 mg Q6HP PRN PO 01/06/25 20:30 Fentanyl Citrate 250 ml @ 2.5 mls/hr Q24H IV 01/06/25 20:45 01/08/25 01:35 12.5 MLS/HR Methylprednisolone Sodium Succinate 40 mg Q6HR IV 01/07/25 12:00 01/08/25 17:41 40 MG Albuterol 2.5 mg Q4HR NEB 01/07/25 11:00 01/08/25 18:29 2.5 MG Azithromycin 250 ml @ 125 mls/hr DAILY IV 01/08/25 10:00 01/08/25 09:56 125 MLS/HR Budesonide 0.5 mg BID NEB 01/07/25 22:00 01/08/25 06:33 0.5 MG Piperacillin Sod/ Tazobactam Sod 100 ml @ 25 mls/hr Q8HR IV 01/08/25 17:00 01/08/25 17:42 25 MLS/HR Pantoprazole Sodium 40 mg BID IV 01/08/25 10:00 01/08/25 10:18 40 MG Dexmedetomidine HCl 400 mcg/ Dextrose 100 ml @ 4.8 mls/hr [id number] IV 01/08/25 12:00 01/08/25 12:13 4.8 MLS/HR Docusate Sodium 100 mg DAILY GT 01/09/25 10:00 Polyethylene Glycol 17 gm DAILY PO 01/09/25 10:00 objective Gen.: Patient lying in bed in medical ICU. Sedated, intubated on mechanical ventilator. Head: Normocephalic, atraumatic. Eyes: PERRLA. Ears: Normal external anatomy. Throat: Endotracheal tube and orogastric tube in place. Neck: Supple, trachea midline. Chest: Transmitted breath sounds bilaterally. Decreased air entry bilaterally. No wheezing. Bibasilar crackles. Cardio vascular: Positive S1, positive S2. Regular rate and rhythm. Abdomen: Positive bowel sounds in all 4 quadrants. Soft, nontender, nondistended. : Yao in place. Normal external genitalia. Rectal: Deferred Skin: Warm, dry. Intact. Extremities: 2+ radial pulses bilaterally. No lower extremity edema. Neuro: Sedated. laboratory and microbiology Laboratory Tests 01/08/25 03:00 Test 01/08/25 03:00 Range/Units Serum Glucose 121 H 74-106 mg/dL Assessment/Plan Impression: Acute hypoxic respiratory failure On mechanical ventilator Acute COPD exacerbation Hyponatremia Nicotine dependence Atelectasis Events: Updated at bedside. Decreased air entry bilaterally. Bilateral wheezing. On Vent Continue steroids. Continue abx Continue bronchodilators. Rest of plan as outlined below. Plan: s/p intubation on mechanical ventilator. CXR: Left midlung atelectasis. No acute opacities. Devices in place. ABG reviewed, compensated. On AC mode; RR 22, VT 600, PEEP 5, FiO2 of 30% Titrate FIO2 to keep O2 saturation above 90%. VAP bundle. Daily ABG and CXR while intubated Sedate for ventilator synchrony - on Versed Continue bronchodilators q.4 hours. IV steroids Continue antibiotics. F/u cultures. Start pressors if necessary to maintain a mean arterial blood pressure greater than 65 mmHg. Monitor renal function Monitor electrolytes. Supplement as necessary. Monitor ins and outs. Monitor hyponatremia - sodium 129 Updated at bedside. GI prophylaxis. DVT prophylaxis. Prognosis: Poor given patient's multiple co-morbidities. Condition: Critical Rest of plan per hospitalist and other consultants. A total of 35 minutes of critical care time was spent reviewing the patient record, examining the patient, making a diagnostic and therapeutic plan, discussing this plan with the medical personnel, following up on diagnostic studies and following the patient for clinical stability excluding any and all procedures. At least 50% of this time was spent in direct, [id number] contact. Thank you, HELEN Lambert, for allowing me to participate in this patient's care. Further recommendations will depend on the patient's clinical course. Please do not hesitate to contact me if you have any questions or concerns. This medical document was created using an electronic medical record system with [employer] dictation system. Although these documentations are being carefully reviewed, there may still be some phonetic and typographical changes. The errors are purely typographical, due to imperfection on the software program, and do not reflect any compromise in the patient's medical care. Plan discussed with: Spouse, Other (RN, RT, MD) Critical Care Time(min): 35 MARITZA FRAZIER MD Jan 08, 2025 20:40
--- NOTE | 2025-01-08 21:25 | DVHPN2 ---
Progress Note - Dictate Date Seen: Jan 08, 2025 Medical Necessity Reason Pt with a Central, PICC or Fol: Yes The following are medically ne: Central Line Subjective Patient seen and examined at bedside. Sedated, intubated on mechanical ventilator. Overnight events reviewed. vital signs Vital Sign Date Time Temp Pulse Resp B/P (MAP) Pulse Ox O2 Delivery O2 Flow Rate FiO2 01/08/25 20:17 60 22 112/73 (86) 96 30 01/08/25 20:00 Mechanical Ventilator+ 01/08/25 18:30 97.0 206.6 Total Intake and Output 01/07/25 01/07/25 01/08/25 15:00 23:00 07:00 Intake Total 182.0 ml 132.0 ml 171.5 ml Output Total 600 ml 400 ml Balance 182.0 ml -468.0 ml -228.5 ml medications Current Medications Medications Dose Ordered Sig/Marisol Route Start Time Stop Time Status Last Admin Dose Admin Propofol 100 ml @ 2.589 mls/ hr Q24H IV 01/06/25 18:30 01/06/25 21:44 25.89 MLS/HR Midazolam HCl 50 ml @ 1 mls/hr Q24H IV 01/06/25 19:15 01/08/25 16:07 10 MLS/HR Nitroglycerin 0.4 mg Q5MINP PRN SL 01/06/25 20:00 Morphine Sulfate 2 mg Q30M PRN IV 01/06/25 20:00 Ipratropium [place] 0.5 mg Q4HR NEB 01/06/25 22:00 01/08/25 18:29 0.5 MG Furosemide 20 mg DAILY IV 01/07/25 10:00 01/08/25 09:55 20 MG Ondansetron HCl 4 mg Q4HP PRN IV 01/06/25 20:30 Enoxaparin Sodium 40 mg DAILY SC 01/07/25 10:00 01/08/25 09:55 40 MG Acetaminophen 650 mg Q6HP PRN PO 01/06/25 20:30 Fentanyl Citrate 250 ml @ 2.5 mls/hr Q24H IV 01/06/25 20:45 01/08/25 01:35 12.5 MLS/HR Methylprednisolone Sodium Succinate 40 mg Q6HR IV 01/07/25 12:00 01/08/25 17:41 40 MG Albuterol 2.5 mg Q4HR NEB 01/07/25 11:00 01/08/25 18:29 2.5 MG Azithromycin 250 ml @ 125 mls/hr DAILY IV 01/08/25 10:00 01/08/25 09:56 125 MLS/HR Budesonide 0.5 mg BID NEB 01/07/25 22:00 01/08/25 06:33 0.5 MG Piperacillin Sod/ Tazobactam Sod 100 ml @ 25 mls/hr Q8HR IV 01/08/25 17:00 01/08/25 17:42 25 MLS/HR Pantoprazole Sodium 40 mg BID IV 01/08/25 10:00 01/08/25 10:18 40 MG Dexmedetomidine HCl 400 mcg/ Dextrose 100 ml @ 4.8 mls/hr [id number] IV 01/08/25 12:00 01/08/25 12:13 4.8 MLS/HR Docusate Sodium 100 mg DAILY GT 01/09/25 10:00 Polyethylene Glycol 17 gm DAILY PO 01/09/25 10:00 objective Gen.: Patient lying in bed in medical ICU. Sedated, intubated on mechanical ventilator. Head: Normocephalic, atraumatic. Eyes: PERRLA. Ears: Normal external anatomy. Throat: Endotracheal tube and orogastric tube in place. Neck: Supple, trachea midline. Chest: Transmitted breath sounds bilaterally. Decreased air entry bilaterally. Bilateral wheezing. Bibasilar crackles. Cardio vascular: Positive S1, positive S2. Regular rate and rhythm. Abdomen: Positive bowel sounds in all 4 quadrants. Soft, nontender, nondistended. : Mak in place. Normal external genitalia. Rectal: Deferred Skin: Warm, dry. Intact. Extremities: 2+ radial pulses bilaterally. No lower extremity edema. Neuro: Sedated. laboratory and microbiology Laboratory Tests 01/08/25 03:00 Test 01/08/25 03:00 Range/Units Serum Glucose 121 H 74-106 mg/dL Assessment/Plan Impression: Acute hypoxic respiratory failure On mechanical ventilator Acute COPD exacerbation Hyponatremia Nicotine dependence Atelectasis Events: Remains on vent support On AC mode; RR 22, VT 600, PEEP 5, FiO2 of 30% ABG reviewed, compensated Continue steroids. Continue abx Continue bronchodilators. Constipation - on stool regimen Miralax QD + Colace 100 mg q.12 hours On sedation with Versed/Fentanyl Precedex drip. Patient did not tolerate CPAP. Rest of plan as outlined below. Plan: s/p intubation on mechanical ventilator. On AC mode; RR 22, VT 600, PEEP 5, FiO2 of 30% Titrate FIO2 to keep O2 saturation above 90%. VAP bundle. Daily ABG and CXR while intubated Sedate for ventilator synchrony Continue bronchodilators q.4 hours. IV steroids Continue antibiotics. F/u cultures. Start pressors if necessary to maintain a mean arterial blood pressure greater than 65 mmHg. Monitor renal function Monitor electrolytes. Supplement as necessary. Monitor ins and outs. Monitor hyponatremia - sodium 131 GI prophylaxis. DVT prophylaxis. Prognosis: Poor given patient's multiple co-morbidities. Condition: Critical Rest of plan per hospitalist and other consultants. A total of 35 minutes of critical care time was spent reviewing the patient record, examining the patient, making a diagnostic and therapeutic plan, discussing this plan with the medical personnel, following up on diagnostic studies and following the patient for clinical stability excluding any and all procedures. At least 50% of this time was spent in direct, [id number] contact. Thank you, HELEN Lambert, for allowing me to participate in this patient's care. Further recommendations will depend on the patient's clinical course. Please do not hesitate to contact me if you have any questions or concerns. This medical document was created using an electronic medical record system with [employer] dictation system. Although these documentations are being carefully reviewed, there may still be some phonetic and typographical changes. The errors are purely typographical, due to imperfection on the software program, and do not reflect any compromise in the patient's medical care. Plan discussed with: Other (GIFTY Calderon) Critical Care Time(min): 35 MARITZA FRAZIER MD Jan 08, 2025 21:25
[2025-01-08] MEDS: POLYETHYLENE GLYCOL 17 GM PWDR PO ONE (22:16)
[2025-01-09] VITALS (105 sets, daily range): BP systolic 99–182; BP diastolic 59–97; PULSE 56–99; RESP 9–22; TEMP 96.4–100; O2SAT 89–96
[2025-01-09 03:40] LABS: Basophils # (auto) 0 10 ^3/uL (0-0.2); Basophils % (auto) 0.1 % (0.0-2.0); Eosinophils # (auto) 0 10 ^3/uL (0-0.8); Hematocrit 34.1 % (41.0-53.0); Hemoglobin 11.5 g/dL (13.5-17.5); Lymphocytes # (auto) 0.8 10 ^3/uL (0.4-5.4); Lymphocytes % (auto) 9.1 % (10.0-50.0); Mean Corpuscular Hgb Conc. 33.8 g/dL (32.0-36.0); Mean Corpuscular Volume 100.5 fL (80.0-100.0); Monocytes # (auto) 0.8 10 ^3/uL (0-1.3); Monocytes % (auto) 9.2 % (0.0-12.0); Neutrophils # (auto) 7.3 10 ^3/uL (1.6-8.6); Neutrophils % (auto) 81.6 % (37.0-80.0); Platelet Count (auto) 223 10^3/uL (140-450); Red Blood Cells 3.39 10^6/uL (4.5-5.90); Red Cell Distribution Width 12.5 % (11.8-14.3); White Blood Cell 8.9 10^3/uL (4.4-10.8)
[2025-01-09 03:48] LABS: Calcium 8.7 mg/dL (8.7-10.4); Potassium 3.8 mmol/L (3.5-5.1)
[2025-01-09 03:49] LABS: Anion Gap 7 (5-15)
[2025-01-09 03:54] LABS: Blood Urea Nitrogen 19 mg/dL (9-23)
[2025-01-09 03:57] LABS: Carbon Dioxide 31 mmol/L (20-31); Chloride 95 mmol/L (98-107); Glucose 125 mg/dL (74-106); Sodium 133 mmol/L (136-145)
--- NOTE | 2025-01-09 06:51 | DVH ---
CHEST RADIOGRAPH Indication: pna Technique: Single frontal view of the chest was obtained Comparison: XY CHEST PORTABLE on DOS: 01/08/25, XY CHEST XRAY 1 VIEW on DOS: 01/07/25, XY CHEST XRAY 1 VIEW on DOS: 01/06/25 IMPRESSION: The heart appears stable in size with subsegmental atelectasis and chronic appearing changes in the l eft lung. There is persistent volume loss. Support lines and tubes appear unchanged. The right lung appears clear.
[2025-01-09 07:17] LABS: Base Excess 5.6 mmol/L (-2.0-3.0)
[2025-01-09] MEDS: POLYETHYLENE GLYCOL 17 GM PWDR PO SCH (10:00)
[2025-01-09] MEDS: DOCUSATE ORAL LIQUID 100 MG/10 ML UD GT SCH (10:32)
--- NOTE | 2025-01-09 10:51 | DVHPN2 ---
Progress Note - Dictate Date Seen: Jan 09, 2025 Medical Necessity Reason Pt with a Central, PICC or Fol: Yes The following are medically ne: Central Line vital signs Vital Sign Date Time Temp Pulse Resp B/P (MAP) Pulse Ox O2 Delivery O2 Flow Rate FiO2 01/09/25 08:16 59 22 112/68 (83) 92 30 01/09/25 06:45 100.0 212.0 01/09/25 06:00 Mechanical Ventilator+ Total Intake and Output 01/08/25 01/08/25 01/09/25 14:59 22:59 06:59 Intake Total 392.75 ml 352.75 ml 520.0 ml Output Total 900 ml 425 ml Balance 392.75 ml -547.25 ml 95.0 ml medications Current Medications Medications Dose Ordered Sig/Marisol Route Start Time Stop Time Status Last Admin Dose Admin Propofol 100 ml @ 2.589 mls/ hr Q24H IV 01/06/25 18:30 01/06/25 21:44 25.89 MLS/HR Midazolam HCl 50 ml @ 1 mls/hr Q24H IV 01/06/25 19:15 01/09/25 05:34 10 MLS/HR Nitroglycerin 0.4 mg Q5MINP PRN SL 01/06/25 20:00 Morphine Sulfate 2 mg Q30M PRN IV 01/06/25 20:00 Ipratropium [place] 0.5 mg Q4HR NEB 01/06/25 22:00 01/09/25 06:22 0.5 MG Furosemide 20 mg DAILY IV 01/07/25 10:00 01/08/25 09:55 20 MG Ondansetron HCl 4 mg Q4HP PRN IV 01/06/25 20:30 Enoxaparin Sodium 40 mg DAILY SC 01/07/25 10:00 01/08/25 09:55 40 MG Acetaminophen 650 mg Q6HP PRN PO 01/06/25 20:30 Fentanyl Citrate 250 ml @ 2.5 mls/hr Q24H IV 01/06/25 20:45 01/09/25 02:40 12.5 MLS/HR Methylprednisolone Sodium Succinate 40 mg Q6HR IV 01/07/25 12:00 01/09/25 06:04 40 MG Albuterol 2.5 mg Q4HR NEB 01/07/25 11:00 01/09/25 06:22 2.5 MG Azithromycin 250 ml @ 125 mls/hr DAILY IV 01/08/25 10:00 01/08/25 09:56 125 MLS/HR Budesonide 0.5 mg BID NEB 01/07/25 22:00 01/09/25 06:22 0.5 MG Piperacillin Sod/ Tazobactam Sod 100 ml @ 25 mls/hr Q8HR IV 01/08/25 17:00 01/09/25 06:04 25 MLS/HR Pantoprazole Sodium 40 mg BID IV 01/08/25 10:00 01/09/25 10:30 40 MG Dexmedetomidine HCl 400 mcg/ Dextrose 100 ml @ 4.8 mls/hr [id number] IV 01/08/25 12:00 01/08/25 12:13 4.8 MLS/HR Docusate Sodium 100 mg DAILY GT 01/09/25 10:00 01/09/25 10:32 100 MG Polyethylene Glycol 17 gm DAILY PO 01/09/25 10:00 01/09/25 10:33 17 GM laboratory and microbiology Laboratory Tests 01/09/25 03:00 Test 01/09/25 03:00 Range/Units Serum Glucose 125 H 74-106 mg/dL Assessment/Plan Acute hypoxic respiratory failure On mechanical ventilator Acute COPD exacerbation Hyponatremia Nicotine dependence Atelectasis Events: pt known to me with COPD my clinic pt! 1st time intubated for copd exacerbation failed weaning yesterday due to tachypnea may need precedex now peep 5 Fi02 40$ abg reviewed vent settings amended CXR no inflitrates viral panel neg've Plan: sedation holiday and daily weaning trials precedex ok Continue bronchodilators q.4 hours. IV steroids Continue antibiotics. F/u cultures. Monitor renal function Monitor electrolytes. Supplement as necessary. Monitor ins and outs. Monitor hyponatremia - sodium 131 GI prophylaxis. DVT prophylaxis. Prognosis: guarded Condition: Critical family updated full code crti care time 35 min Plan discussed with: Spouse DAVID MOHAN MD Jan 09, 2025 10:51
--- NOTE | 2025-01-09 13:05 | DVHPN2 ---
Subjective The patient is seen and examined at bedside. Remained intubated. Did not pass CPAP trial yesterday and today. The at bedside. Reviewed: Care Plan, H&P, Labs, Medications Changes from previous H/P or p: No Changes General: Per HPI Objective Vitals Vital Signs Date Time Temp Pulse Resp B/P (MAP) Pulse Ox O2 Delivery O2 Flow Rate FiO2 01/09/25 11:45 62 20 119/78 (92) 94 30 01/09/25 06:45 100.0 212.0 01/09/25 06:00 Mechanical Ventilator+ Intake/Output Intake and Output 01/09/25 07:00 Intake Total 1243.00 ml Output Total 1325 ml Balance -82.00 ml Intake Oral 300 ml IV Total 943.00 ml Output Urine Total 1325 ml General Appearance: mild distress HEENT: Atraumatic, PERRLA Lungs: Clear to auscultation, Other (Mechanical ventilation) Cardiovascular: Normal S1, Normal S2 Abdomen: Normal bowel sounds Musculoskeletal: Other (Unable to assess) Skin: Dry, Intact Psych/Mental Status: Other (Unable to assess) Medications Current Medications Medications Dose Ordered Sig/Marisol Route Start Time Stop Time Status Last Admin Dose Admin Propofol 100 ml @ 2.589 mls/ hr Q24H IV 01/06/25 18:30 01/06/25 21:44 25.89 MLS/HR Midazolam HCl 50 ml @ 1 mls/hr Q24H IV 01/06/25 19:15 01/09/25 11:00 10 MLS/HR Nitroglycerin 0.4 mg Q5MINP PRN SL 01/06/25 20:00 Morphine Sulfate 2 mg Q30M PRN IV 01/06/25 20:00 Ipratropium [place] 0.5 mg Q4HR NEB 01/06/25 22:00 01/09/25 11:02 0.5 MG Furosemide 20 mg DAILY IV 01/07/25 10:00 01/09/25 11:07 20 MG Ondansetron HCl 4 mg Q4HP PRN IV 01/06/25 20:30 Enoxaparin Sodium 40 mg DAILY SC 01/07/25 10:00 01/09/25 11:01 40 MG Acetaminophen 650 mg Q6HP PRN PO 01/06/25 20:30 Fentanyl Citrate 250 ml @ 2.5 mls/hr Q24H IV 01/06/25 20:45 01/09/25 02:40 12.5 MLS/HR Methylprednisolone Sodium Succinate 40 mg Q6HR IV 01/07/25 12:00 01/09/25 12:40 40 MG Albuterol 2.5 mg Q4HR NEB 01/07/25 11:00 01/09/25 11:02 2.5 MG Azithromycin 250 ml @ 125 mls/hr DAILY IV 01/08/25 10:00 01/09/25 11:06 125 MLS/HR Budesonide 0.5 mg BID NEB 01/07/25 22:00 01/09/25 06:22 0.5 MG Piperacillin Sod/ Tazobactam Sod 100 ml @ 25 mls/hr Q8HR IV 01/08/25 17:00 01/09/25 06:04 25 MLS/HR Pantoprazole Sodium 40 mg BID IV 01/08/25 10:00 01/09/25 10:30 40 MG Dexmedetomidine HCl 400 mcg/ Dextrose 100 ml @ 4.8 mls/hr [id number] IV 01/08/25 12:00 01/08/25 12:13 4.8 MLS/HR Docusate Sodium 100 mg DAILY GT 01/09/25 10:00 01/09/25 10:32 100 MG Polyethylene Glycol 17 gm DAILY PO 01/09/25 10:00 Laboratory Results Laboratory Tests 01/09/25 03:00 Chemistry Test 01/09/25 03:00 Calcium Level 8.7 mg/dL (8.7-10.4) Blood Gas Results Test 01/09/25 06:59 Arterial Blood pH 7.481 (7.350-7.450) FiO2 % 30.0 Microbiology Microbiology Date/Time Source Procedure Growth Status 01/07/25 00:40 Nose MRSA Screen - Final Complete 01/06/25 19:48 Urine - [place] Urine Culture - Final Complete 01/06/25 18:00 Sputum Gram Stain - Final Resulted 01/06/25 18:00 Sputum Respiratory Culture - Preliminary Resulted 01/06/25 17:30 Blood Blood Culture - Preliminary NO GROWTH AFTER 48 HOURS OF INCUBATION. Resulted Labs and/or images reviewed: Labs reviewed by me Assessment/Plan Assessment/Plan Acute hypoxic respiratory failure -acute COPD exacerbation -primary hypertension -GERD Plan: Continuing current management. Continuing CPAP trial Patient is weaned off sedation Precedex as needed Continuing bronchodilator, Solu-Medrol and Pulmicort Continuing with IV antibiotic Rocephin and Zithromax Discussed plan of care with at bedside. This medical document was created using an electronic medical record system with [employer] direct computerized dictation system. Although this document has been carefully reviewed, there may still be some phonetic and typographical errors. These areas are purely typographical due to imperfections of the software programs, and do not reflect any compromise in the patient's medical care. Plan discussed with: Spouse, Other (RN) Date of Service: Jan 09, 2025 Billing Provider: THERON HERNANEDZ MD Common Visit Codes: [id number] INP/OBS CARE(HIGH) THERON HERNANDEZ MD Jan 09, 2025 13:05
[2025-01-10] VITALS (73 sets, daily range): BP systolic 104–199; BP diastolic 65–106; PULSE 54–107; RESP 7–22; TEMP 97.7–99.1; O2SAT 89–99
[2025-01-10 04:38] LABS: Basophils # (auto) 0 10 ^3/uL (0-0.2); Eosinophils # (auto) 0 10 ^3/uL (0-0.8); Hemoglobin 12.1 g/dL (13.5-17.5); Lymphocytes # (auto) 0.7 10 ^3/uL (0.4-5.4); Monocytes # (auto) 0.6 10 ^3/uL (0-1.3)
[2025-01-10 04:40] LABS: Basophils % (auto) 0.1 % (0.0-2.0); Hematocrit 35.9 % (41.0-53.0); Lymphocytes % (auto) 8.1 % (10.0-50.0); Mean Corpuscular Hemoglobin 34.2 pg (28.0-32.0); Mean Corpuscular Hgb Conc. 33.6 g/dL (32.0-36.0); Mean Corpuscular Volume 101.7 fL (80.0-100.0); Monocytes % (auto) 7.3 % (0.0-12.0); Neutrophils # (auto) 7.1 10 ^3/uL (1.6-8.6); Neutrophils % (auto) 84.5 % (37.0-80.0); Nucleated Red Blood Cells % 0.1 %; Platelet Count (auto) 222 10^3/uL (140-450); Red Blood Cells 3.53 10^6/uL (4.5-5.90); Red Cell Distribution Width 12.5 % (11.8-14.3); White Blood Cell 8.4 10^3/uL (4.4-10.8)
[2025-01-10 04:44] LABS: Potassium 4.1 mmol/L (3.5-5.1)
[2025-01-10 04:45] LABS: Anion Gap 6 (5-15)
[2025-01-10 04:50] LABS: BUN/Creatinine Ratio 29.3 (10.0-20.0); Blood Urea Nitrogen 22 mg/dL (9-23)
[2025-01-10 05:07] LABS: Calcium 8.6 mg/dL (8.7-10.4); Carbon Dioxide 33 mmol/L (20-31); Chloride 96 mmol/L (98-107); Glucose 123 mg/dL (74-106); Sodium 135 mmol/L (136-145)
--- NOTE | 2025-01-10 05:14 | DVH ---
CHEST RADIOGRAPH Indication: RE-CHECK SUBSEGMENTAL ATELECTASIS Technique: Single frontal view of the chest was obtained Comparison: XY CHEST PORTABLE on DOS: 01/09/25, XY CHEST PORTABLE on DOS: 01/08/25, XY CHEST XRAY 1 VIE W on DOS: 01/07/25 IMPRESSION: Endotracheal tube approximately 6 cm from the mariel. Subsegmental atelectasis in the left mid lung a ppears similar with overall volume loss on the left. No sizable effusion or pneumothorax. No signific ant interval change.
[2025-01-10 08:29] LABS: Base Excess 3.1 mmol/L (-2.0-3.0)
--- NOTE | 2025-01-10 10:50 | DVHPN2 ---
Progress Note - Dictate Date Seen: Jan 10, 2025 Medical Necessity Reason Pt with a Central, PICC or Fol: Yes The following are medically ne: Central Line vital signs Vital Sign Date Time Temp Pulse Resp B/P (MAP) Pulse Ox O2 Delivery O2 Flow Rate FiO2 01/10/25 10:30 99.0 70 8 125/65 (85) 95 210.2 01/10/25 10:00 Mechanical Ventilator 01/10/25 10:00 40 40 Total Intake and Output 01/09/25 01/09/25 01/10/25 15:00 23:00 07:00 Intake Total 202.50 ml 215.00 ml 387.5 ml Output Total 250 ml 500 ml Balance 202.50 ml -35.00 ml -112.5 ml medications Current Medications Medications Dose Ordered Sig/Marisol Route Start Time Stop Time Status Last Admin Dose Admin Propofol 100 ml @ 2.589 mls/ hr Q24H IV 01/06/25 18:30 01/06/25 21:44 25.89 MLS/HR Midazolam HCl 50 ml @ 1 mls/hr Q24H IV 01/06/25 19:15 01/10/25 07:34 5 MLS/HR Nitroglycerin 0.4 mg Q5MINP PRN SL 01/06/25 20:00 Morphine Sulfate 2 mg Q30M PRN IV 01/06/25 20:00 Ipratropium [place] 0.5 mg Q4HR NEB 01/06/25 22:00 01/10/25 06:34 0.5 MG Furosemide 20 mg DAILY IV 01/07/25 10:00 01/10/25 09:21 20 MG Ondansetron HCl 4 mg Q4HP PRN IV 01/06/25 20:30 Enoxaparin Sodium 40 mg DAILY SC 01/07/25 10:00 01/10/25 09:22 40 MG Acetaminophen 650 mg Q6HP PRN PO 01/06/25 20:30 Fentanyl Citrate 250 ml @ 2.5 mls/hr Q24H IV 01/06/25 20:45 01/09/25 17:57 15 MLS/HR Methylprednisolone Sodium Succinate 40 mg Q6HR IV 01/07/25 12:00 01/10/25 06:39 40 MG Albuterol 2.5 mg Q4HR NEB 01/07/25 11:00 01/10/25 06:34 2.5 MG Azithromycin 250 ml @ 125 mls/hr DAILY IV 01/08/25 10:00 01/10/25 09:22 125 MLS/HR Budesonide 0.5 mg BID NEB 01/07/25 22:00 01/10/25 06:34 0.5 MG Piperacillin Sod/ Tazobactam Sod 100 ml @ 25 mls/hr Q8HR IV 01/08/25 17:00 01/10/25 06:39 25 MLS/HR Pantoprazole Sodium 40 mg BID IV 01/08/25 10:00 01/10/25 09:21 40 MG Dexmedetomidine HCl 400 mcg/ Dextrose 100 ml @ 4.8 mls/hr [id number] IV 01/08/25 12:00 01/10/25 08:40 4.8 MLS/HR Docusate Sodium 100 mg DAILY GT 01/09/25 10:00 01/10/25 09:21 100 MG Polyethylene Glycol 17 gm DAILY PO 01/09/25 10:00 01/10/25 09:22 17 GM Hydralazine HCl 10 mg Q6HP PRN IV 01/10/25 10:30 UNV laboratory and microbiology Laboratory Tests 01/10/25 03:30 Test 01/10/25 03:30 Range/Units Serum Glucose 123 H 74-106 mg/dL Assessment/Plan Acute hypoxic respiratory failure On mechanical ventilator Acute COPD exacerbation Hyponatremia Nicotine dependence Atelectasis Events: sedation holiday weaning trial cpap 7/5 abg/parameters extubate when ready otherwise Continue bronchodilators q.4 hours. IV steroids Continue antibiotics. F/u cultures. Monitor renal function Monitor electrolytes. Supplement as necessary. Monitor ins and outs. Monitor hyponatremia - sodium 131 GI prophylaxis. DVT prophylaxis. Prognosis: guarded Condition: Critical family updated full code crti care time 35 min Dietary Evaluation Review Comments: 1. Recommend TPN or TF> 7 days NPO 2. Consider BUSINESS SUPPORT consult for PO diet advancement Expected Outcomes/Goals: 1. Pt will meet >75% of estimated needs within 2-3 days Plan discussed with: Spouse DAVID MOHAN MD Jan 10, 2025 10:50
[2025-01-10 11:20] LABS: Base Excess 7.6 mmol/L (-2.0-3.0)
--- NOTE | 2025-01-10 12:29 | DVHPN2 ---
Subjective The patient is seen and examined at bedside. Status post extubate. On oxymizer. The at bedside. Reviewed: Care Plan, H&P, Labs, Medications Changes from previous H/P or p: No Changes General: Per HPI Objective Vitals Vital Signs Date Time Temp Pulse Resp B/P (MAP) Pulse Ox O2 Delivery O2 Flow Rate FiO2 01/10/25 12:00 99.1 77 11 137/98 (111) 96 210.4 01/10/25 12:00 Cool Aerosol 10 40 40 Intake/Output Intake and Output 01/10/25 07:00 Intake Total 805.00 ml Output Total 750 ml Balance 55.00 ml Intake Oral 0 ml IV Total 805.00 ml Output Urine Total 750 ml General Appearance: mild distress HEENT: Atraumatic, PERRLA Lungs: Clear to auscultation, Normal air movement Cardiovascular: Normal S1, Normal S2, No murmurs, Gallops, Rubs Abdomen: Normal bowel sounds, Soft, No tenderness Neuro: Cranial nerves 3-12 NL Skin: Dry, Intact Psych/Mental Status: Mental status NL Medications Current Medications Medications Dose Ordered Sig/Marisol Route Start Time Stop Time Status Last Admin Dose Admin Propofol 100 ml @ 2.589 mls/ hr Q24H IV 01/06/25 18:30 01/06/25 21:44 25.89 MLS/HR Midazolam HCl 50 ml @ 1 mls/hr Q24H IV 01/06/25 19:15 01/10/25 07:34 5 MLS/HR Nitroglycerin 0.4 mg Q5MINP PRN SL 01/06/25 20:00 Morphine Sulfate 2 mg Q30M PRN IV 01/06/25 20:00 Ipratropium [place] 0.5 mg Q4HR NEB 01/06/25 22:00 01/10/25 06:34 0.5 MG Furosemide 20 mg DAILY IV 01/07/25 10:00 01/10/25 09:21 20 MG Ondansetron HCl 4 mg Q4HP PRN IV 01/06/25 20:30 Enoxaparin Sodium 40 mg DAILY SC 01/07/25 10:00 01/10/25 09:22 40 MG Acetaminophen 650 mg Q6HP PRN PO 01/06/25 20:30 Fentanyl Citrate 250 ml @ 2.5 mls/hr Q24H IV 01/06/25 20:45 01/09/25 17:57 15 MLS/HR Methylprednisolone Sodium Succinate 40 mg Q6HR IV 01/07/25 12:00 01/10/25 11:24 40 MG Albuterol 2.5 mg Q4HR NEB 01/07/25 11:00 01/10/25 06:34 2.5 MG Azithromycin 250 ml @ 125 mls/hr DAILY IV 01/08/25 10:00 01/10/25 09:22 125 MLS/HR Budesonide 0.5 mg BID NEB 01/07/25 22:00 01/10/25 06:34 0.5 MG Piperacillin Sod/ Tazobactam Sod 100 ml @ 25 mls/hr Q8HR IV 01/08/25 17:00 01/10/25 06:39 25 MLS/HR Pantoprazole Sodium 40 mg BID IV 01/08/25 10:00 01/10/25 09:21 40 MG Dexmedetomidine HCl 400 mcg/ Dextrose 100 ml @ 4.8 mls/hr [id number] IV 01/08/25 12:00 01/10/25 08:40 4.8 MLS/HR Docusate Sodium 100 mg DAILY GT 01/09/25 10:00 01/10/25 09:21 100 MG Polyethylene Glycol 17 gm DAILY PO 01/09/25 10:00 01/10/25 09:22 17 GM Hydralazine HCl 10 mg Q6HP PRN IV 01/10/25 10:30 Laboratory Results Laboratory Tests 01/10/25 03:30 Chemistry Test 01/10/25 03:30 Calcium Level 8.6 mg/dL (8.7-10.4) L Blood Gas Results Test 01/10/25 07:34 01/10/25 10:45 Arterial Blood pH 7.353 (7.350-7.450) 7.423 (7.350-7.450) FiO2 % 30.0 40.0 Microbiology Microbiology Date/Time Source Procedure Growth Status 01/08/25 09:53 Nose MRSA Screen - Final Complete 01/06/25 19:48 Urine - [place] Urine Culture - Final Complete 01/06/25 18:00 Sputum Gram Stain - Final Resulted 01/06/25 18:00 Sputum Respiratory Culture - Preliminary Resulted 01/06/25 17:30 Blood Blood Culture - Preliminary NO GROWTH AFTER 72 HOURS OF INCUBATION. Resulted Labs and/or images reviewed: Labs reviewed by me Assessment/Plan Assessment/Plan Acute hypoxic respiratory failure -acute COPD exacerbation -uncontrolled hypertension -GERD Plan: Continuing current management. Will order swallow evaluation Will give hydralazine 10mg IV q6h PRN for SBP greater than 160 Continuing bronchodilator, Solu-Medrol and Pulmicort Continuing with IV antibiotic Rocephin and Zithromax Discussed plan of care with at bedside. This medical document was created using an electronic medical record system with [employer] dictation system. Although this document has been carefully reviewed, there may still be some phonetic and typographical errors. These areas are purely typographical due to imperfections of the software programs, and do not reflect any compromise in the patient's medical care. Plan discussed with: Patient, Spouse, Son My Orders Orders - THERON HERNANDEZ MD Procedure Category Date Status Time Hydralazine Injection PHA 01/10/25 In Process (Apresoline Inject 10:30 Date of Service: Jan 10, 2025 Billing Provider: THERON HERNANDEZ MD Common Visit Codes: [id number] INP/OBS CARE(HIGH) THERON HERNANDEZ MD Jan 10, 2025 12:29
[2025-01-10] MEDS: NICOTINE 21MG/24 HR TOPICAL PATCH TD SCH (13:24)
[2025-01-10] MEDS: hydrALAZINE HCL 20 MG/ML VL IV PRN (15:10)
[2025-01-10] MEDS: LORazepam 0.5 MG TAB PO PRN (16:26)
[2025-01-10] MEDS: LABETALOL HCL 20 MG/4 ML VL IV ONE (18:31)
[2025-01-11] VITALS (30 sets, daily range): BP systolic 141–194; BP diastolic 82–107; PULSE 81–130; RESP 13–22; TEMP 97.3–99.7; O2SAT 90–99
[2025-01-11 04:03] LABS: Basophils # (auto) 0 10 ^3/uL (0-0.2); Basophils % (auto) 0.1 % (0.0-2.0); Eosinophils # (auto) 0 10 ^3/uL (0-0.8); Hematocrit 39.8 % (41.0-53.0); Hemoglobin 13.3 g/dL (13.5-17.5); Lymphocytes # (auto) 0.8 10 ^3/uL (0.4-5.4); Lymphocytes % (auto) 5.5 % (10.0-50.0); Mean Corpuscular Hemoglobin 33.8 pg (28.0-32.0); Mean Corpuscular Hgb Conc. 33.4 g/dL (32.0-36.0); Mean Corpuscular Volume 101.2 fL (80.0-100.0); Monocytes # (auto) 1.6 10 ^3/uL (0-1.3); Monocytes % (auto) 11.3 % (0.0-12.0); Neutrophils # (auto) 11.7 10 ^3/uL (1.6-8.6); Neutrophils % (auto) 83.1 % (37.0-80.0); Nucleated Red Blood Cells % 0.1 %; Platelet Count (auto) 257 10^3/uL (140-450); Red Blood Cells 3.93 10^6/uL (4.5-5.90); Red Cell Distribution Width 12.4 % (11.8-14.3); White Blood Cell 14.1 10^3/uL (4.4-10.8)
[2025-01-11 04:13] LABS: Potassium 3.6 mmol/L (3.5-5.1); Sodium 136 mmol/L (136-145)
[2025-01-11 04:14] LABS: Anion Gap 6 (5-15); Calcium 9.5 mg/dL (8.7-10.4)
[2025-01-11 04:19] LABS: BUN/Creatinine Ratio 34.8 (10.0-20.0); Blood Urea Nitrogen 23 mg/dL (9-23)
[2025-01-11 04:31] LABS: Carbon Dioxide 34 mmol/L (20-31); Chloride 96 mmol/L (98-107); Glucose 130 mg/dL (74-106)
--- NOTE | 2025-01-11 04:44 | DVH ---
CHEST RADIOGRAPH Indication: PROTOCOL Technique: Single frontal view of the chest was obtained Comparison: XY CHEST PORTABLE on DOS: 01/10/25, XY CHEST PORTABLE on DOS: 01/09/25, XY CHEST PORTABLE o n DOS: 01/08/25 FINDINGS: Lines and Tubes: Right central venous catheter terminates in the superior vena cava. Lungs: Subsegmental atelectasis in the lingula is unchanged. Pleura: No effusion. No pneumothorax. Cardiomediastinal contours: Unremarkable Bones: No acute osseous abnormality. IMPRESSION: 1. Lingular subsegmental atelectasis, unchanged.
--- NOTE | 2025-01-11 09:04 | DVHPN2 ---
Subjective Patient was alert and oriented x4. Denies any symptoms Reviewed: Care Plan, H&P, Labs, Medications Changes from previous H/P or p: No Changes General: Per HPI Objective Vitals Vital Signs Date Time Temp Pulse Resp B/P (MAP) Pulse Ox O2 Delivery O2 Flow Rate FiO2 01/11/25 07:00 99.0 102 17 179/99 (125) 94 210.2 01/11/25 06:23 Nasal Cannula* 4 36 Intake/Output Intake and Output 01/11/25 07:00 Intake Total 862.1 ml Output Total 2550 ml Balance -1687.9 ml Intake Oral 390 ml IV Total 472.1 ml Output Urine Total 2550 ml General Appearance: Alert, Oriented X3, Cooperative, No acute distress HEENT: Atraumatic, PERRLA Lungs: Clear to auscultation, Normal air movement Cardiovascular: Normal S1, Normal S2, No murmurs, Gallops, Rubs Abdomen: Normal bowel sounds, Soft, No tenderness Musculoskeletal: Normal sensory function, Normal motor function Neuro: Cranial nerves 3-12 NL Skin: Dry, Intact Psych/Mental Status: Mental status NL, Mood NL Medications Current Medications Medications Dose Ordered Sig/Marisol Route Start Time Stop Time Status Last Admin Dose Admin Propofol 100 ml @ 2.589 mls/ hr Q24H IV 01/06/25 18:30 01/06/25 21:44 25.89 MLS/HR Midazolam HCl 50 ml @ 1 mls/hr Q24H IV 01/06/25 19:15 01/10/25 07:34 5 MLS/HR Nitroglycerin 0.4 mg Q5MINP PRN SL 01/06/25 20:00 Morphine Sulfate 2 mg Q30M PRN IV 01/06/25 20:00 Ipratropium [place] 0.5 mg Q4HR NEB 01/06/25 22:00 01/11/25 06:23 0.5 MG Furosemide 20 mg DAILY IV 01/07/25 10:00 01/10/25 09:21 20 MG Ondansetron HCl 4 mg Q4HP PRN IV 01/06/25 20:30 Enoxaparin Sodium 40 mg DAILY SC 01/07/25 10:00 01/10/25 09:22 40 MG Acetaminophen 650 mg Q6HP PRN PO 01/06/25 20:30 Fentanyl Citrate 250 ml @ 2.5 mls/hr Q24H IV 01/06/25 20:45 01/09/25 17:57 15 MLS/HR Methylprednisolone Sodium Succinate 40 mg Q6HR IV 01/07/25 12:00 01/11/25 06:01 40 MG Albuterol 2.5 mg Q4HR NEB 01/07/25 11:00 01/11/25 06:23 2.5 MG Azithromycin 250 ml @ 125 mls/hr DAILY IV 01/08/25 10:00 01/10/25 09:22 125 MLS/HR Budesonide 0.5 mg BID NEB 01/07/25 22:00 01/11/25 06:23 0.5 MG Piperacillin Sod/ Tazobactam Sod 100 ml @ 25 mls/hr Q8HR IV 01/08/25 17:00 01/11/25 06:00 25 MLS/HR Pantoprazole Sodium 40 mg BID IV 01/08/25 10:00 01/10/25 21:36 40 MG Dexmedetomidine HCl 400 mcg/ Dextrose 100 ml @ 4.8 mls/hr [id number] IV 01/08/25 12:00 01/10/25 08:40 4.8 MLS/HR Docusate Sodium 100 mg DAILY GT 01/09/25 10:00 01/10/25 09:21 100 MG Polyethylene Glycol 17 gm DAILY PO 01/09/25 10:00 01/10/25 09:22 17 GM Hydralazine HCl 10 mg Q6HP PRN IV 01/10/25 10:30 01/11/25 06:02 10 MG Nicotine 1 patch DAILY TD 01/10/25 13:00 01/10/25 13:24 1 PATCH Lorazepam 1 mg Q4HPRN PRN PO 01/10/25 16:15 01/10/25 21:36 1 MG Laboratory Results Laboratory Tests 01/11/25 03:46 Chemistry Test 01/11/25 03:46 Calcium Level 9.5 mg/dL (8.7-10.4) Blood Gas Results Test 01/10/25 10:45 Arterial Blood pH 7.423 (7.350-7.450) FiO2 % 40.0 Microbiology Microbiology Date/Time Source Procedure Growth Status 01/08/25 09:53 Nose MRSA Screen - Final Complete 01/06/25 19:48 Urine - [place] Urine Culture - Final Complete 01/06/25 18:00 Sputum Gram Stain - Final Resulted 01/06/25 18:00 Sputum Respiratory Culture - Preliminary Resulted 01/06/25 17:30 Blood Blood Culture - Preliminary NO GROWTH AFTER 72 HOURS OF INCUBATION. Resulted Labs and/or images reviewed: Labs reviewed by me, Image(s) reviewed by me Assessment/Plan Assessment/Plan Impression: -acute hypoxic respiratory failure -acute COPD exacerbation -primary hypertension -GERD Plan: -events: Patient is status post extubation yesterday. Noted tachycardia and hypertension. -continue O2 supplementation via nasal cannula to keep saturation greater than 91% -titrate down Solu-Medrol to 40 mg twice a day. Change albuterol and Atrovent to q.6 hours -PUD, DVT prophylaxis -nicotine patch -MVI, thiamine -start amlodipine 10 mg p.o. daily -physical therapy -transfer to telemetry floor. This medical document was created using an electronic medical record system with [employer] dictation system. Although this document has been carefully reviewed, there may still be some phonetic and typographical errors. These areas are purely typographical due to imperfections of the software programs, and do not reflect any compromise in the patient's medical care. Plan discussed with: Patient, Other (RN) My Orders Orders - SANTY SUAREZ NP Procedure Category Date Status Time Albuterol Medneb PHA 01/11/25 Logged (Ventolin Medneb) 12:00 Methylprednisolone PHA 01/11/25 Logged Sod Succ (Solu Medrol 18:00 Amlodipine Tablet PHA 01/11/25 Logged (Norvasc Tablet) 10:00 Multiple Vitamin PHA 01/11/25 Logged Tablet (Mvi Tab) 10:00 Thiamine Tab PHA 01/11/25 Logged 10:00 Basic Metabolic Panel LAB 01/12/25 Verified 04:00 Complete Blood Count LAB 01/12/25 Verified 04:00 Transfer Orders XFER 01/11/25 Transmitted 08:54 Date of Service: Jan 11, 2025 Billing Provider: SANTY SUAREZ NP Common Visit Codes: [id number] INP/OBS CARE(HIGH) SANTY SUAREZ NP Jan 11, 2025 09:04
--- NOTE | 2025-01-11 09:59 | MEDREC ---
[facility] ASP Intervention Section I [facility] ASP Intervention: Review courses of therapy (PLEASE CONSIDER SWITCHING ANTIBIOTIC BASED ON CULTURE RESULTS ) REDD WALLER PHARMACIST Jan 11, 2025 09:59
[2025-01-11] MEDS: THIAMINE HCL 100 MG TAB PO SCH (10:07)
[2025-01-11] MEDS: MULTIPLE VITAMIN TAB PO SCH (10:07)
[2025-01-11] MEDS: amLODIPine BESYLATE 5 MG TAB PO SCH (10:08)
[2025-01-11] MEDS: ALBUTEROL SULF 2.5 MG/0.5ML(0.5%) NEB SOLN NEB SCH (12:01)
[2025-01-11] MEDS: IPRATROPIUM BROM 0.5 MG/2.5ML INH SOL NEB SCH (12:01)
[2025-01-11] MEDS: CEFEPIME 1GM/ 50ML 50 ML IV SCH (14:56)
[2025-01-11] MEDS: methylPREDNISolone SOD SUCC 40 MG/ML VL IV SCH (17:50)
[2025-01-11] MEDS: amLODIPine BESYLATE 5 MG TAB PO ONE (18:49)
--- NOTE | 2025-01-11 20:38 | DVHPN2 ---
Progress Note - Dictate Date Seen: Jan 11, 2025 Medical Necessity Reason Pt with a Central, PICC or Fol: Yes The following are medically ne: Central Line, Yao Catheter Reason for yao catheter: Strict I&O Subjective Patient seen and examined at bedside. S/p extubation, on supplemental oxygen Overnight events reviewed. vital signs Vital Sign Date Time Temp Pulse Resp B/P (MAP) Pulse Ox O2 Delivery O2 Flow Rate FiO2 01/11/25 20:02 111 20 98 01/11/25 19:50 Nasal Cannula 4.0 01/11/25 19:50 36 01/11/25 18:49 154/92 01/11/25 17:00 97.4 97.4 Total Intake and Output 01/10/25 01/10/25 01/11/25 15:00 23:00 07:00 Intake Total 372.1 ml 200 ml 290 ml Output Total 1450 ml 1100 ml Balance 372.1 ml -1250 ml -810 ml medications Current Medications Medications Dose Ordered Sig/Marisol Route Start Time Stop Time Status Last Admin Dose Admin Nitroglycerin 0.4 mg Q5MINP PRN SL 01/06/25 20:00 Morphine Sulfate 2 mg Q30M PRN IV 01/06/25 20:00 Ondansetron HCl 4 mg Q4HP PRN IV 01/06/25 20:30 Enoxaparin Sodium 40 mg DAILY SC 01/07/25 10:00 01/11/25 10:09 40 MG Acetaminophen 650 mg Q6HP PRN PO 01/06/25 20:30 Azithromycin 250 ml @ 125 mls/hr DAILY IV 01/08/25 10:00 01/11/25 10:07 125 MLS/HR Budesonide 0.5 mg BID NEB 01/07/25 22:00 01/11/25 19:50 0.5 MG Pantoprazole Sodium 40 mg BID IV 01/08/25 10:00 01/11/25 10:07 40 MG Docusate Sodium 100 mg DAILY GT 01/09/25 10:00 01/11/25 10:07 100 MG Polyethylene Glycol 17 gm DAILY PO 01/09/25 10:00 01/11/25 10:07 17 GM Hydralazine HCl 10 mg Q6HP PRN IV 01/10/25 10:30 01/11/25 16:53 10 MG Nicotine 1 patch DAILY TD 01/10/25 13:00 01/11/25 10:16 1 PATCH Lorazepam 1 mg Q4HPRN PRN PO 01/10/25 16:15 01/10/25 21:36 1 MG Albuterol 2.5 mg Q6HR NEB 01/11/25 12:00 01/11/25 19:50 2.5 MG Methylprednisolone Sodium Succinate 40 mg Q12H IV 01/11/25 18:00 01/11/25 17:50 40 MG Amlodipine Besylate 10 mg DAILY PO 01/11/25 10:00 01/11/25 10:08 10 MG Multivitamins 1 tab DAILY PO 01/11/25 10:00 01/11/25 10:07 1 TAB Thiamine HCl 100 mg DAILY PO 01/11/25 10:00 01/11/25 10:07 100 MG Ipratropium [place] 0.5 mg Q6HR NEB 01/11/25 12:00 01/11/25 19:50 0.5 MG Cefepime HCl 50 ml @ 12.5 mls/hr Q8HR IV 01/11/25 14:00 01/11/25 14:56 12.5 MLS/HR objective Gen.: Patient lying in bed in no apparent distress. On supplemental oxygen. Head: Normocephalic, atraumatic. Eyes: EOMI/PERRLA. Ears: Normal hearing. Normal anatomy. Neck/trachea: Trachea midline, supple. Nose: Normal external anatomy. Mouth: Moist mucous membranes. Chest: Decreased air entry bilaterally. No wheezing or rhonchi. Cardiovascular: Positive S1, positive S2. Regular rate and rhythm. Abdomen: Positive bowel sounds in all 4 quadrants. Soft, non-tender, non- distended. : Deferred. Rectal: Deferred. Skin: Warm, dry. Intact. Extremities: 2+ radial pulses bilaterally. No lower extremity edema. Neuro: Awake, alert, oriented x3. No gross motor or sensory deficits. Cranial nerves II through XII intact. Gait not assessed. laboratory and microbiology Laboratory Tests 01/11/25 03:46 Test 01/11/25 03:46 Range/Units Serum Glucose 130 H 74-106 mg/dL Assessment/Plan Impression: Acute hypoxic respiratory failure Acute COPD exacerbation Hyponatremia Nicotine dependence Atelectasis Events: Patient tolerated CPAP, underwent uneventful extubation yesterday. Currently on supplemental oxygen On 4 LPM NC Taper O2 as tolerated Continue bronchodilators IV steroids Continue antibiotics. Monitor renal function Monitor electrolytes. Supplement as necessary. Monitor ins and outs. Sodium normal at 136 Constipation - on stool regimen Miralax QD + Colace 100 mg QD NRT Rest of plan as outlined below. Plan: s/p extubation on 01/10/25 Supplemental oxygen Titrate to keep O2 sats above 92% Continue bronchodilators q.6 hours. IV steroids Continue antibiotics. Monitor renal function Monitor electrolytes. Supplement as necessary. Monitor ins and outs. Hyponatremia - sodium at goal GI prophylaxis. DVT prophylaxis. Prognosis: Guarded given patient's multiple co-morbidities. Rest of plan per hospitalist and other consultants. A total of 51 minutes of clinical care time was spent reviewing the patient record, examining the patient, making a diagnostic and therapeutic plan, discussing this plan with the medical personnel, following up on diagnostic studies and following the patient for clinical stability excluding any and all procedures. At least 50% of this time was spent in direct, [id number] contact. Thank you, HELEN Lambert, for allowing me to participate in this patient's care. Further recommendations will depend on the patient's clinical course. Please do not hesitate to contact me if you have any questions or concerns. This medical document was created using an electronic medical record system with [employer] dictation system. Although these documentations are being carefully reviewed, there may still be some phonetic and typographical changes. The errors are purely typographical, due to imperfection on the software program, and do not reflect any compromise in the patient's medical care. Dietary Evaluation Review Comments: 1. Recommend TPN or TF> 7 days NPO 2. Consider [employer] consult for PO diet advancement Expected Outcomes/Goals: 1. Pt will meet >75% of estimated needs within 2-3 days Plan discussed with: Patient, Other (GIFTY Cleary) MARITZA FRAZIER MD Jan 11, 2025 20:38
[2025-01-12] VITALS (15 sets, daily range): BP systolic 146–182; BP diastolic 93–106; PULSE 94–114; RESP 17–20; TEMP 97.4–98.1; O2SAT 93–98
[2025-01-12 07:30] LABS: Basophils # (auto) 0 10 ^3/uL (0-0.2); Eosinophils # (auto) 0 10 ^3/uL (0-0.8); Eosinophils % (auto) 0.2 % (0.0-7.0); Hematocrit 45.8 % (41.0-53.0); Hemoglobin 15.1 g/dL (13.5-17.5); Lymphocytes # (auto) 1.9 10 ^3/uL (0.4-5.4); Lymphocytes % (auto) 13.6 % (10.0-50.0); Mean Corpuscular Hemoglobin 33.3 pg (28.0-32.0); Monocytes # (auto) 2.2 10 ^3/uL (0-1.3); Monocytes % (auto) 16.5 % (0.0-12.0); Neutrophils # (auto) 9.5 10 ^3/uL (1.6-8.6); Neutrophils % (auto) 69.7 % (37.0-80.0); Nucleated Red Blood Cells % 0.1 %; Platelet Count (auto) 298 10^3/uL (140-450); Red Blood Cells 4.53 10^6/uL (4.5-5.90); Red Cell Distribution Width 12.6 % (11.8-14.3); White Blood Cell 13.6 10^3/uL (4.4-10.8)
[2025-01-12 07:49] LABS: Anion Gap 9 (5-15); Calcium 9.9 mg/dL (8.7-10.4); Carbon Dioxide 31 mmol/L (20-31); Sodium 137 mmol/L (136-145)
[2025-01-12 07:55] LABS: BUN/Creatinine Ratio 40.7 (10.0-20.0)
[2025-01-12 07:58] LABS: Blood Urea Nitrogen 24 mg/dL (9-23); Chloride 97 mmol/L (98-107); Glucose 122 mg/dL (74-106); Potassium 3.3 mmol/L (3.5-5.1)
--- NOTE | 2025-01-12 11:47 | DVHPN2 ---
Subjective Patient was alert and oriented x4. Denies any symptoms Reviewed: Care Plan, H&P, Labs, Medications Changes from previous H/P or p: No Changes General: Per HPI Objective Vitals Vital Signs Date Time Temp Pulse Resp B/P (MAP) Pulse Ox O2 Delivery O2 Flow Rate FiO2 01/12/25 09:38 146/106 01/12/25 08:48 98.1 114 18 96 98.1 01/12/25 08:00 Nasal Cannula* 4 36 Intake/Output Intake and Output 01/12/25 07:00 Intake Total 1060 ml Output Total 1600 ml Balance -540 ml Intake Oral 660 ml IV Total 400 ml Output Urine Total 1600 ml # Bowel Movements 1 General Appearance: Alert, Oriented X3, Cooperative, No acute distress HEENT: Atraumatic, PERRLA Lungs: Clear to auscultation, Normal air movement Cardiovascular: Normal S1, Normal S2, No murmurs, Gallops, Rubs Abdomen: Normal bowel sounds, Soft, No tenderness Musculoskeletal: Normal sensory function, Normal motor function Neuro: Cranial nerves 3-12 NL Skin: Dry, Intact Psych/Mental Status: Mental status NL, Mood NL Medications Current Medications Medications Dose Ordered Sig/Marisol Route Start Time Stop Time Status Last Admin Dose Admin Nitroglycerin 0.4 mg Q5MINP PRN SL 01/06/25 20:00 Morphine Sulfate 2 mg Q30M PRN IV 01/06/25 20:00 Ondansetron HCl 4 mg Q4HP PRN IV 01/06/25 20:30 Enoxaparin Sodium 40 mg DAILY SC 01/07/25 10:00 01/12/25 09:36 40 MG Acetaminophen 650 mg Q6HP PRN PO 01/06/25 20:30 Budesonide 0.5 mg BID NEB 01/07/25 22:00 01/12/25 06:34 0.5 MG Pantoprazole Sodium 40 mg BID IV 01/08/25 10:00 01/12/25 09:36 40 MG Docusate Sodium 100 mg DAILY GT 01/09/25 10:00 01/12/25 09:35 100 MG Polyethylene Glycol 17 gm DAILY PO 01/09/25 10:00 01/12/25 09:37 17 GM Hydralazine HCl 10 mg Q6HP PRN IV 01/10/25 10:30 01/12/25 03:00 10 MG Nicotine 1 patch DAILY TD 01/10/25 13:00 01/12/25 09:37 1 PATCH Lorazepam 1 mg Q4HPRN PRN PO 01/10/25 16:15 01/10/25 21:36 1 MG Albuterol 2.5 mg Q6HR NEB 01/11/25 12:00 01/12/25 11:40 2.5 MG Methylprednisolone Sodium Succinate 40 mg Q12H IV 01/11/25 18:00 01/12/25 05:57 40 MG Amlodipine Besylate 10 mg DAILY PO 01/11/25 10:00 01/12/25 09:38 10 MG Multivitamins 1 tab DAILY PO 01/11/25 10:00 01/12/25 09:37 1 TAB Thiamine HCl 100 mg DAILY PO 01/11/25 10:00 01/12/25 09:37 100 MG Ipratropium [place] 0.5 mg Q6HR NEB 01/11/25 12:00 01/12/25 11:40 0.5 MG Cefepime HCl 50 ml @ 12.5 mls/hr Q8HR IV 01/11/25 14:00 01/12/25 05:57 12.5 MLS/HR Losartan Potassium 25 mg DAILY PO 01/12/25 11:00 UNV Laboratory Results Laboratory Tests 01/12/25 06:18 Chemistry Test 01/12/25 06:18 Calcium Level 9.9 mg/dL (8.7-10.4) Microbiology Microbiology Date/Time Source Procedure Growth Status 01/08/25 09:53 Nose MRSA Screen - Final Complete 01/06/25 19:48 Urine - [place] Urine Culture - Final Complete 01/06/25 18:00 Sputum Gram Stain - Final Resulted 01/06/25 18:00 Respiratory Culture - Preliminary Citrobacter freundii Resulted 01/06/25 17:30 Blood Blood Culture - Final NO GROWTH AFTER 5 DAYS OF INCUBATION. Complete Labs and/or images reviewed: Labs reviewed by me, Image(s) reviewed by me Assessment/Plan Assessment/Plan Impression: -acute hypoxic respiratory failure -acute COPD exacerbation -primary hypertension -GERD Plan: -events: Patient with accelerated hypertension. Pending PT evaluation. -continue O2 supplementation via nasal cannula to keep saturation greater than 91% -titrate down Solu-Medrol to 40 mg twice a day. Change albuterol and Atrovent to q.6 hours -PUD, DVT prophylaxis -nicotine patch -continue antibiotic therapy with cefepime -MVI, thiamine -continue amlodipine 10 mg p.o. daily. As losartan 25 mg p.o. daily -repeat labs in a.m. This medical document was created using an electronic medical record system with [employer] dictation system. Although this document has been carefully reviewed, there may still be some phonetic and typographical errors. These areas are purely typographical due to imperfections of the software programs, and do not reflect any compromise in the patient's medical care. Plan discussed with: Patient, Other (RN) My Orders Orders - SANTY SUAREZ NP Procedure Category Date Status Time Losartan Tablet PHA 01/12/25 Logged (Cozaar Tablet) 11:00 Nutritional PHA 01/12/25 Transmitted Supplements (Ensure 18:00 Date of Service: Jan 12, 2025 Billing Provider: SANTY SUAREZ NP Common Visit Codes: [id number] INP/OBS CARE(HIGH) SANTY SUAREZ NP Jan 12, 2025 11:47
[2025-01-12] MEDS: POTASSIUM EFFERVESENT TAB 25 MEQ PO ONE (12:45)
[2025-01-12] MEDS: LOSARTAN POTASSIUM 25 MG TAB PO SCH (12:45)
[2025-01-12] MEDS: METOPROLOL TARTRATE 1MG/1ML-5ML VIAL IV ONE (14:39)
[2025-01-12] MEDS: ENSURE CLEAR Mixed Berry 8oz Carton PO SCH (17:55)
--- NOTE | 2025-01-12 23:11 | DVHPN2 ---
Progress Note - Dictate Date Seen: Jan 12, 2025 Medical Necessity Reason Pt with a Central, PICC or Fol: Yes The following are medically ne: Central Line, Yao Catheter Reason for yao catheter: Strict I&O Subjective Patient seen and examined at bedside. Remains on supplemental oxygen Overnight events reviewed. vital signs Vital Sign Date Time Temp Pulse Resp B/P (MAP) Pulse Ox O2 Delivery O2 Flow Rate FiO2 01/12/25 21:41 161/93 01/12/25 21:00 100 18 97 4.0 36 01/12/25 21:00 97.4 97.4 01/12/25 20:00 Nasal Cannula* Total Intake and Output 01/11/25 01/11/25 01/12/25 15:00 23:00 07:00 Intake Total 350 ml 470 ml 240 ml Output Total 700 ml 900 ml Balance 350 ml -230 ml -660 ml medications Current Medications Medications Dose Ordered Sig/Marisol Route Start Time Stop Time Status Last Admin Dose Admin Nitroglycerin 0.4 mg Q5MINP PRN SL 01/06/25 20:00 Morphine Sulfate 2 mg Q30M PRN IV 01/06/25 20:00 Ondansetron HCl 4 mg Q4HP PRN IV 01/06/25 20:30 Enoxaparin Sodium 40 mg DAILY SC 01/07/25 10:00 01/12/25 09:36 40 MG Acetaminophen 650 mg Q6HP PRN PO 01/06/25 20:30 Budesonide 0.5 mg BID NEB 01/07/25 22:00 01/12/25 19:30 0.5 MG Pantoprazole Sodium 40 mg BID IV 01/08/25 10:00 01/12/25 21:41 40 MG Docusate Sodium 100 mg DAILY GT 01/09/25 10:00 01/12/25 09:35 100 MG Polyethylene Glycol 17 gm DAILY PO 01/09/25 10:00 01/12/25 09:37 17 GM Hydralazine HCl 10 mg Q6HP PRN IV 01/10/25 10:30 01/12/25 21:41 10 MG Nicotine 1 patch DAILY TD 01/10/25 13:00 01/12/25 09:37 1 PATCH Lorazepam 1 mg Q4HPRN PRN PO 01/10/25 16:15 01/10/25 21:36 1 MG Albuterol 2.5 mg Q6HR NEB 01/11/25 12:00 01/12/25 19:30 2.5 MG Methylprednisolone Sodium Succinate 40 mg Q12H IV 01/11/25 18:00 01/12/25 18:10 40 MG Amlodipine Besylate 10 mg DAILY PO 01/11/25 10:00 01/12/25 09:38 10 MG Multivitamins 1 tab DAILY PO 01/11/25 10:00 01/12/25 09:37 1 TAB Thiamine HCl 100 mg DAILY PO 01/11/25 10:00 01/12/25 09:37 100 MG Ipratropium [place] 0.5 mg Q6HR NEB 01/11/25 12:00 01/12/25 19:30 0.5 MG Cefepime HCl 50 ml @ 12.5 mls/hr Q8HR IV 01/11/25 14:00 01/12/25 21:41 12.5 MLS/HR Losartan Potassium 25 mg DAILY PO 01/12/25 11:00 01/12/25 12:45 25 MG Enteral Nutritional Formula 240 ml BIDWM PO 01/12/25 18:00 01/12/25 17:55 240 ML objective Gen.: Patient lying in bed in no apparent distress. On supplemental oxygen. Head: Normocephalic, atraumatic. Eyes: EOMI/PERRLA. Ears: Normal hearing. Normal anatomy. Neck/trachea: Trachea midline, supple. Nose: Normal external anatomy. Mouth: Moist mucous membranes. Chest: Decreased air entry bilaterally. No wheezing or rhonchi. Cardiovascular: Positive S1, positive S2. Regular rate and rhythm. Abdomen: Positive bowel sounds in all 4 quadrants. Soft, non-tender, non- distended. : Deferred. Rectal: Deferred. Skin: Warm, dry. Intact. Extremities: 2+ radial pulses bilaterally. No lower extremity edema. Neuro: Awake, alert, oriented x3. No gross motor or sensory deficits. Cranial nerves II through XII intact. Gait not assessed. laboratory and microbiology Laboratory Tests 01/12/25 06:18 Test 01/12/25 06:18 Range/Units Serum Glucose 122 H 74-106 mg/dL Assessment/Plan Impression: Acute hypoxic respiratory failure Acute COPD exacerbation Hyponatremia Nicotine dependence Atelectasis Events: Remains on supplemental oxygen On 4 LPM NC Taper O2 as tolerated Continue bronchodilators Pulmicort BID IV steroids Continue antibiotics. Monitor renal function Monitor electrolytes. Supplement as necessary. Monitor ins and outs. Potassium supplementation Constipation - on stool regimen Miralax QD + Colace 100 mg QD NRT - nicotine patch GI prophylaxis - Protonix BID DVT prophylaxis - Lovenox Rest of plan as outlined below. Plan: s/p extubation on 01/10/25 Supplemental oxygen Titrate to keep O2 sats above 92% Continue bronchodilators q.6 hours. IV steroids Continue antibiotics. Monitor renal function Monitor electrolytes. Supplement as necessary. Monitor ins and outs. Hyponatremia - sodium at goal GI prophylaxis - Protonix BID DVT prophylaxis - Lovenox. Prognosis: Guarded given patient's multiple co-morbidities. Rest of plan per hospitalist and other consultants. A total of 51 minutes of clinical care time was spent reviewing the patient record, examining the patient, making a diagnostic and therapeutic plan, discussing this plan with the medical personnel, following up on diagnostic studies and following the patient for clinical stability excluding any and all procedures. At least 50% of this time was spent in direct, [id number] contact. Thank you, HELEN Lambert, for allowing me to participate in this patient's care. Further recommendations will depend on the patient's clinical course. Please do not hesitate to contact me if you have any questions or concerns. This medical document was created using an electronic medical record system with [employer] dictation system. Although these documentations are being carefully reviewed, there may still be some phonetic and typographical changes. The errors are purely typographical, due to imperfection on the software program, and do not reflect any compromise in the patient's medical care. Dietary Evaluation Review Comments: 1. Recommend TPN or TF> 7 days NPO 2. Consider [employer] consult for PO diet advancement Expected Outcomes/Goals: 1. Pt will meet >75% of estimated needs within 2-3 days Plan discussed with: Patient, Other (RN) MARITZA FRAZIER MD Jan 12, 2025 23:11
[2025-01-13] VITALS (16 sets, daily range): BP systolic 137–161; BP diastolic 93–103; PULSE 87–108; RESP 16–20; TEMP 97.5–98.2; O2SAT 93–99
[2025-01-13] MEDS: DOCUSATE SOD 100 MG CAP PO SCH (10:00)
[2025-01-13] MEDS: LOSARTAN POTASSIUM 50 MG TAB PO SCH (10:54)
--- NOTE | 2025-01-13 11:01 | DVHPN2 ---
Subjective Patient was alert and oriented x4. Denies any symptoms Reviewed: Care Plan, H&P, Labs, Medications Changes from previous H/P or p: No Changes General: Per HPI Objective Vitals Vital Signs Date Time Temp Pulse Resp B/P (MAP) Pulse Ox O2 Delivery O2 Flow Rate FiO2 01/13/25 08:29 97.6 87 16 151/103 (119) 96 97.6 01/13/25 06:36 Nasal Cannula 4.0 01/13/25 06:36 36 Intake/Output Intake and Output 01/13/25 07:00 Intake Total 1050 ml Output Total 1050 ml Balance 0 ml Intake Oral 1000 ml IV Total 50 ml Output Urine Total 1050 ml # Bowel Movements 1 General Appearance: Alert, Oriented X3, Cooperative, No acute distress HEENT: Atraumatic, PERRLA Lungs: Clear to auscultation, Normal air movement Cardiovascular: Normal S1, Normal S2, No murmurs, Gallops, Rubs Abdomen: Normal bowel sounds, Soft, No tenderness Musculoskeletal: Normal sensory function, Normal motor function Neuro: Cranial nerves 3-12 NL Skin: Dry, Intact Psych/Mental Status: Mental status NL, Mood NL Medications Current Medications Medications Dose Ordered Sig/Marisol Route Start Time Stop Time Status Last Admin Dose Admin Nitroglycerin 0.4 mg Q5MINP PRN SL 01/06/25 20:00 Morphine Sulfate 2 mg Q30M PRN IV 01/06/25 20:00 Ondansetron HCl 4 mg Q4HP PRN IV 01/06/25 20:30 Enoxaparin Sodium 40 mg DAILY SC 01/07/25 10:00 01/12/25 09:36 40 MG Acetaminophen 650 mg Q6HP PRN PO 01/06/25 20:30 Budesonide 0.5 mg BID NEB 01/07/25 22:00 01/13/25 06:36 0.5 MG Hydralazine HCl 10 mg Q6HP PRN IV 01/10/25 10:30 01/12/25 21:41 10 MG Nicotine 1 patch DAILY TD 01/10/25 13:00 01/12/25 09:37 1 PATCH Lorazepam 1 mg Q4HPRN PRN PO 01/10/25 16:15 01/10/25 21:36 1 MG Albuterol 2.5 mg Q6HR NEB 01/11/25 12:00 01/13/25 06:36 2.5 MG Methylprednisolone Sodium Succinate 40 mg Q12H IV 01/11/25 18:00 01/13/25 05:39 40 MG Amlodipine Besylate 10 mg DAILY PO 01/11/25 10:00 01/12/25 09:38 10 MG Multivitamins 1 tab DAILY PO 01/11/25 10:00 01/12/25 09:37 1 TAB Thiamine HCl 100 mg DAILY PO 01/11/25 10:00 01/12/25 09:37 100 MG Ipratropium [place] 0.5 mg Q6HR NEB 01/11/25 12:00 01/13/25 06:36 0.5 MG Cefepime HCl 50 ml @ 12.5 mls/hr Q8HR IV 01/11/25 14:00 01/13/25 05:39 12.5 MLS/HR Enteral Nutritional Formula 240 ml BIDWM PO 01/12/25 18:00 01/12/25 17:55 240 ML Losartan Potassium 50 mg DAILY PO 01/13/25 10:28 Pantoprazole Sodium 40 mg DAILY@0600 PO 01/14/25 06:00 Docusate Sodium 100 mg BID PO 01/13/25 10:00 Laboratory Results Laboratory Tests 01/12/25 06:18 Microbiology Microbiology Date/Time Source Procedure Growth Status 01/08/25 09:53 Nose MRSA Screen - Final Complete 01/06/25 19:48 Urine - [place] Urine Culture - Final Complete 01/06/25 18:00 Sputum Gram Stain - Final Resulted 01/06/25 18:00 Respiratory Culture - Preliminary Citrobacter freundii Resulted 01/06/25 17:30 Blood Blood Culture - Final NO GROWTH AFTER 5 DAYS OF INCUBATION. Complete Labs and/or images reviewed: Labs reviewed by me, Image(s) reviewed by me Assessment/Plan Assessment/Plan Impression: -acute hypoxic respiratory failure -acute COPD exacerbation -primary hypertension -GERD Plan: -events: Still hypertensive. Continue amlodipine, increase Cozaar to 50 mg p.o. daily -continue O2 supplementation via nasal cannula to keep saturation greater than 91% -new bronchodilators and IV Solu-Medrol -PUD, DVT prophylaxis -nicotine patch -continue antibiotic therapy with cefepime -MVI, thiamine -amlodipine 10, losartan 50 -repeat labs today -PT consultation. Discussed with physical therapist about patient's progress. At this time he is care home facility appropriate. Recommendations for care home facility placement we will be reassess tomorrow once patient's respiratory status improves This medical document was created using an electronic medical record system with [employer] system. Although this document has been carefully reviewed, there may still be some phonetic and typographical errors. These areas are purely typographical due to imperfections of the software programs, and do not reflect any compromise in the patient's medical care. Plan discussed with: Patient, Spouse, Other (RN) My Orders Orders - SANTY SUAREZ NP Procedure Category Date Status Time Nutritional PHA 01/12/25 In Process Supplements (Ensure 18:00 Pantoprazole Tablet PHA 01/14/25 In Process (Protonix Tablet) 06:00 Docusate Sodium PHA 01/13/25 In Process Capsule (Colace 10:00 Transfer Orders XFER 01/13/25 Transmitted 09:01 Losartan Tablet PHA 01/13/25 In Process (Cozaar Tablet) 10:28 Date of Service: Jan 13, 2025 Billing Provider: SANTY SUAREZ NP Common Visit Codes: [id number] INP/OBS CARE(HIGH) SANTY SUAREZ NP Jan 13, 2025 11:01
[2025-01-13 11:34] LABS: Basophils # (auto) 0 10 ^3/uL (0-0.2); Basophils % (auto) 0.3 % (0.0-2.0); Eosinophils # (auto) 0 10 ^3/uL (0-0.8); Eosinophils % (auto) 0.1 % (0.0-7.0); Hematocrit 45.7 % (41.0-53.0); Hemoglobin 15.1 g/dL (13.5-17.5); Lymphocytes # (auto) 1.1 10 ^3/uL (0.4-5.4); Lymphocytes % (auto) 8.1 % (10.0-50.0); Mean Corpuscular Hemoglobin 33.4 pg (28.0-32.0); Mean Corpuscular Volume 101.2 fL (80.0-100.0); Monocytes % (auto) 14.1 % (0.0-12.0); Neutrophils # (auto) 10.9 10 ^3/uL (1.6-8.6); Neutrophils % (auto) 77.4 % (37.0-80.0); Nucleated Red Blood Cells % 0.1 %; Platelet Count (auto) 315 10^3/uL (140-450); Red Blood Cells 4.52 10^6/uL (4.5-5.90); Red Cell Distribution Width 12.7 % (11.8-14.3); White Blood Cell 14.1 10^3/uL (4.4-10.8)
[2025-01-13 11:45] LABS: Chloride 99 mmol/L (98-107); Sodium 140 mmol/L (136-145)
[2025-01-13 11:46] LABS: Anion Gap 7 (5-15)
[2025-01-13 11:47] LABS: Calcium 9.9 mg/dL (8.7-10.4)
[2025-01-13 11:52] LABS: BUN/Creatinine Ratio 35.5 (10.0-20.0)
[2025-01-13 11:57] LABS: Blood Urea Nitrogen 27 mg/dL (9-23); Carbon Dioxide 34 mmol/L (20-31); Glucose 127 mg/dL (74-106)
--- NOTE | 2025-01-13 23:05 | DVHPN2 ---
Progress Note - Dictate Date Seen: Jan 13, 2025 Medical Necessity Reason Pt with a Central, PICC or Fol: Yes The following are medically ne: Central Line, Yao Catheter Reason for yao catheter: Strict I&O Subjective Patient seen and examined at bedside. Remains on supplemental oxygen Overnight events reviewed. vital signs Vital Sign Date Time Temp Pulse Resp B/P (MAP) Pulse Ox O2 Delivery O2 Flow Rate FiO2 01/13/25 21:00 98.2 94 18 160/93 (115) 97 98.2 01/13/25 18:30 Nasal Cannula* 4 36 Total Intake and Output 01/12/25 01/12/25 01/13/25 15:00 23:00 07:00 Intake Total 50 ml 500 ml 500 ml Output Total 550 ml 500 ml Balance 50 ml -50 ml 0 ml medications Current Medications Medications Dose Ordered Sig/Marisol Route Start Time Stop Time Status Last Admin Dose Admin Nitroglycerin 0.4 mg Q5MINP PRN SL 01/06/25 20:00 Morphine Sulfate 2 mg Q30M PRN IV 01/06/25 20:00 Ondansetron HCl 4 mg Q4HP PRN IV 01/06/25 20:30 Enoxaparin Sodium 40 mg DAILY SC 01/07/25 10:00 01/13/25 10:59 40 MG Acetaminophen 650 mg Q6HP PRN PO 01/06/25 20:30 Budesonide 0.5 mg BID NEB 01/07/25 22:00 01/13/25 19:27 0.5 MG Hydralazine HCl 10 mg Q6HP PRN IV 01/10/25 10:30 01/12/25 21:41 10 MG Nicotine 1 patch DAILY TD 01/10/25 13:00 01/13/25 10:53 1 PATCH Lorazepam 1 mg Q4HPRN PRN PO 01/10/25 16:15 01/10/25 21:36 1 MG Albuterol 2.5 mg Q6HR NEB 01/11/25 12:00 01/13/25 19:27 2.5 MG Methylprednisolone Sodium Succinate 40 mg Q12H IV 01/11/25 18:00 01/13/25 16:20 40 MG Amlodipine Besylate 10 mg DAILY PO 01/11/25 10:00 01/13/25 10:58 10 MG Multivitamins 1 tab DAILY PO 01/11/25 10:00 01/13/25 10:00 1 TAB Thiamine HCl 100 mg DAILY PO 01/11/25 10:00 01/13/25 10:53 100 MG Ipratropium [place] 0.5 mg Q6HR NEB 01/11/25 12:00 01/13/25 19:27 0.5 MG Cefepime HCl 50 ml @ 12.5 mls/hr Q8HR IV 01/11/25 14:00 01/13/25 21:27 12.5 MLS/HR Enteral Nutritional Formula 240 ml BIDWM PO 01/12/25 18:00 01/13/25 18:00 240 ML Losartan Potassium 50 mg DAILY PO 01/13/25 10:28 01/13/25 10:54 50 MG Pantoprazole Sodium 40 mg DAILY@0600 PO 01/14/25 06:00 Docusate Sodium 100 mg BID PO 01/13/25 10:00 objective Gen.: Patient lying in bed in no apparent distress. On supplemental oxygen. Head: Normocephalic, atraumatic. Eyes: EOMI/PERRLA. Ears: Normal hearing. Normal anatomy. Neck/trachea: Trachea midline, supple. Nose: Normal external anatomy. Mouth: Moist mucous membranes. Chest: Decreased air entry bilaterally. No wheezing or rhonchi. Cardiovascular: Positive S1, positive S2. Regular rate and rhythm. Abdomen: Positive bowel sounds in all 4 quadrants. Soft, non-tender, non- distended. : Deferred. Rectal: Deferred. Skin: Warm, dry. Intact. Extremities: 2+ radial pulses bilaterally. No lower extremity edema. Neuro: Awake, alert, oriented x3. No gross motor or sensory deficits. Cranial nerves II through XII intact. Gait not assessed. laboratory and microbiology Laboratory Tests 01/13/25 11:19 Test 01/13/25 11:19 Range/Units Serum Glucose 127 H 74-106 mg/dL Assessment/Plan Impression: Acute hypoxic respiratory failure Acute COPD exacerbation Hyponatremia, resolved Nicotine dependence Atelectasis Events: Remains on supplemental oxygen On 4 LPM via NC Taper O2 as tolerated Continue bronchodilators Pulmicort BID IV steroids - taper as tolerated Continue antibiotics. Ensure for nutritional supplementation Monitor renal function Monitor electrolytes. Supplement as necessary. Monitor ins and outs. Potassium supplementation NRT - nicotine patch GI prophylaxis - Protonix BID DVT prophylaxis - Lovenox Rest of plan as outlined below. Plan: s/p extubation on 01/10/25 Supplemental oxygen Titrate to keep O2 sats above 92% Continue bronchodilators q.6 hours. IV steroids Continue antibiotics. Monitor renal function Monitor electrolytes. Supplement as necessary. Monitor ins and outs. Potassium supplementation Hyponatremia - resolved GI prophylaxis - Protonix BID DVT prophylaxis - Lovenox. Prognosis: Guarded given patient's multiple co-morbidities. Rest of plan per hospitalist and other consultants. A total of 51 minutes of clinical care time was spent reviewing the patient record, examining the patient, making a diagnostic and therapeutic plan, discussing this plan with the medical personnel, following up on diagnostic studies and following the patient for clinical stability excluding any and all procedures. At least 50% of this time was spent in direct, [id number] contact. Thank you, HELEN Lambert, for allowing me to participate in this patient's care. Further recommendations will depend on the patient's clinical course. Please do not hesitate to contact me if you have any questions or concerns. This medical document was created using an electronic medical record system with [employer] dictation system. Although these documentations are being carefully reviewed, there may still be some phonetic and typographical changes. The errors are purely typographical, due to imperfection on the software program, and do not reflect any compromise in the patient's medical care. Dietary Evaluation Review Comments: 1. Recommend TPN or TF> 7 days NPO 2. Consider [employer] consult for PO diet advancement Expected Outcomes/Goals: 1. Pt will meet >75% of estimated needs within 2-3 days Plan discussed with: Patient, Other (GIFTY Morel) MARITZA FRAZIER MD Jan 13, 2025 23:05
[2025-01-14] VITALS (18 sets, daily range): BP systolic 110–174; BP diastolic 62–110; PULSE 80–111; RESP 17–22; TEMP 94–98.5; O2SAT 92–100
[2025-01-14] MEDS: PANTOPRAZOLE 40 MG TAB PO SCH (06:01)
--- NOTE | 2025-01-14 14:08 | DVH ---
CHEST RADIOGRAPH Indication: pna Technique: Single frontal view of the chest was obtained Comparison: XY CHEST PORTABLE on DOS: 01/11/25, XY CHEST PORTABLE on DOS: 01/10/25, XY CHEST PORTABLE o n DOS: 01/09/25, XY CHEST PORTABLE on DOS: 01/08/25, XY CHEST XRAY 1 VIEW on DOS: 01/07/25, XY CHEST POR TABLE on DOS: 01/11/25 FINDINGS: Lines and Tubes: Right central venous catheter removed Lungs: Subsegmental atelectasis in the lingula is unchanged. Pleura: No effusion. No pneumothorax. Cardiomediastinal contours: Unremarkable Bones: No acute osseous abnormality. IMPRESSION: 1. Lingular subsegmental atelectasis, unchanged.
--- NOTE | 2025-01-14 14:29 | DVHPN2 ---
Subjective Patient was alert and oriented x4. Denies any symptoms Reviewed: Care Plan, H&P, Labs, Medications Changes from previous H/P or p: No Changes General: Per HPI Objective Vitals Vital Signs Date Time Temp Pulse Resp B/P (MAP) Pulse Ox O2 Delivery O2 Flow Rate FiO2 01/14/25 13:16 110 20 98 01/14/25 13:10 Nasal Cannula* 3 32 01/14/25 12:29 142/78 01/14/25 08:45 97.5 97.5 Intake/Output Intake and Output 01/14/25 07:00 Intake Total 750 ml Output Total 950 ml Balance -200 ml Intake Oral 750 ml Output Urine Total 950 ml # Voids 1 # Bowel Movements 2 General Appearance: Alert, Oriented X3, Cooperative, No acute distress HEENT: Atraumatic, PERRLA Lungs: Clear to auscultation, Normal air movement Cardiovascular: Normal S1, Normal S2, No murmurs, Gallops, Rubs Abdomen: Normal bowel sounds, Soft, No tenderness Musculoskeletal: Normal sensory function, Normal motor function Neuro: Cranial nerves 3-12 NL Skin: Dry, Intact Psych/Mental Status: Other (Patient with acute delirium) Medications Current Medications Medications Dose Ordered Sig/Marisol Route Start Time Stop Time Status Last Admin Dose Admin Nitroglycerin 0.4 mg Q5MINP PRN SL 01/06/25 20:00 Morphine Sulfate 2 mg Q30M PRN IV 01/06/25 20:00 Ondansetron HCl 4 mg Q4HP PRN IV 01/06/25 20:30 Enoxaparin Sodium 40 mg DAILY SC 01/07/25 10:00 01/14/25 12:32 40 MG Acetaminophen 650 mg Q6HP PRN PO 01/06/25 20:30 Budesonide 0.5 mg BID NEB 01/07/25 22:00 01/14/25 07:05 0.5 MG Hydralazine HCl 10 mg Q6HP PRN IV 01/10/25 10:30 01/12/25 21:41 10 MG Nicotine 1 patch DAILY TD 01/10/25 13:00 01/14/25 12:31 1 PATCH Lorazepam 1 mg Q4HPRN PRN PO 01/10/25 16:15 01/10/25 21:36 1 MG Albuterol 2.5 mg Q6HR NEB 01/11/25 12:00 01/14/25 13:10 2.5 MG Methylprednisolone Sodium Succinate 40 mg Q12H IV 01/11/25 18:00 01/14/25 06:01 40 MG Amlodipine Besylate 10 mg DAILY PO 01/11/25 10:00 01/14/25 12:27 10 MG Multivitamins 1 tab DAILY PO 01/11/25 10:00 01/14/25 12:26 1 TAB Thiamine HCl 100 mg DAILY PO 01/11/25 10:00 01/14/25 12:26 100 MG Ipratropium [place] 0.5 mg Q6HR NEB 01/11/25 12:00 01/14/25 13:10 0.5 MG Cefepime HCl 50 ml @ 12.5 mls/hr Q8HR IV 01/11/25 14:00 01/14/25 06:01 12.5 MLS/HR Enteral Nutritional Formula 240 ml BIDWM PO 01/12/25 18:00 01/14/25 10:18 240 ML Losartan Potassium 50 mg DAILY PO 01/13/25 10:28 01/14/25 12:29 50 MG Pantoprazole Sodium 40 mg DAILY@0600 PO 01/14/25 06:00 01/14/25 06:01 40 MG Docusate Sodium 100 mg BID PO 01/13/25 10:00 Laboratory Results Laboratory Tests 01/13/25 11:19 Microbiology Microbiology Date/Time Source Procedure Growth Status 01/08/25 09:53 Nose MRSA Screen - Final Complete 01/06/25 19:48 Urine - [place] Urine Culture - Final Complete 01/06/25 18:00 Sputum Gram Stain - Final Resulted 01/06/25 18:00 Respiratory Culture - Preliminary Citrobacter freundii Resulted 01/06/25 17:30 Blood Blood Culture - Final NO GROWTH AFTER 5 DAYS OF INCUBATION. Complete Labs and/or images reviewed: Labs reviewed by me, Image(s) reviewed by me Assessment/Plan Assessment/Plan Impression: -acute hypoxic respiratory failure -acute COPD exacerbation -primary hypertension -GERD -acute delirium Plan: -events: Still hypertensive. Continue amlodipine, increase Cozaar to 50 mg p.o. daily -continue O2 supplementation via nasal cannula to keep saturation greater than 91% -decrease Solu-Medrol to 20 mg IV b.i.d.. Change albuterol to Xopenex given tachycardia -PUD, DVT prophylaxis -nicotine patch -continue antibiotic therapy with cefepime -MVI, thiamine -amlodipine 10, losartan 50 -repeat labs today -PT consultation. Noted to ambulate approximately 5 ft -long discussion made with the patient's family who was bedside regarding acute delirium as well as plan of care post hospitalization. is agreeable to half-way facility if he does not progress in the next several days. Total time spent with patient discussing and formulating plan of care: 35 minutes. This medical document was created using an electronic medical record system with [employer] dictation system. Although this document has been carefully reviewed, there may still be some phonetic and typographical errors. These areas are purely typographical due to imperfections of the software programs, and do not reflect any compromise in the patient's medical care. Plan discussed with: Patient, Other (RN) My Orders Orders - SANTY SUAREZ NP Procedure Category Date Status Time Clostridium Difficile GRACIELA 01/14/25 In Process Toxin 19:00 Chest Xray 1 View XY 01/14/25 Resulted 13:06 Date of Service: Jan 14, 2025 Billing Provider: SANTY SUAREZ NP Common Visit Codes: [id number] INP/OBS CARE(HIGH) SANTY SUAREZ NP Jan 14, 2025 14:29
[2025-01-14 18:06] LABS: Base Excess 4.3 mmol/L (-2.0-3.0)
[2025-01-14] MEDS: LEVALBUTEROL HCL 1.25 MG/3 ML NEB NEB SCH (19:37)
--- NOTE | 2025-01-14 20:33 | DVH ---
Date: 01/14/2025 06:51 PM Examination: XY KUB ABDOMEN SINGLE VIEW History: abdominal distention Comparison: XY KUB ABDOMEN SINGLE VIEW on DOS: 01/08/25 TECHNIQUE: Frontal views of the abdomen was obtained. FINDINGS: distended loops of small bowel up to 6cm The lung bases are unremarkable. No acute osseous abnormality identified. IMPRESSION: Nonspecific bowel gas pattern with distended loops of small bowel
[2025-01-14] MEDS: methylPREDNISolone SOD SUCC 40 MG/ML VL IV SCH (20:56)
--- NOTE | 2025-01-14 22:44 | DVHPN2 ---
Progress Note - Dictate Date Seen: Jan 14, 2025 Medical Necessity Reason Pt with a Central, PICC or Fol: Yes The following are medically ne: Central Line, Yao Catheter Reason for yao catheter: Strict I&O Subjective Patient seen and examined at bedside. Remains on supplemental oxygen Overnight events reviewed. vital signs Vital Sign Date Time Temp Pulse Resp B/P (MAP) Pulse Ox O2 Delivery O2 Flow Rate FiO2 01/14/25 19:42 102 20 99 01/14/25 19:34 Nasal Cannula 4.0 01/14/25 19:34 36 01/14/25 17:00 98.5 136/83 (100) 98.5 Total Intake and Output 01/13/25 01/13/25 01/14/25 15:00 23:00 07:00 Intake Total 250 ml 500 ml Output Total 350 ml 600 ml Balance -100 ml -100 ml medications Current Medications Medications Dose Ordered Sig/Marisol Route Start Time Stop Time Status Last Admin Dose Admin Nitroglycerin 0.4 mg Q5MINP PRN SL 01/06/25 20:00 Morphine Sulfate 2 mg Q30M PRN IV 01/06/25 20:00 Ondansetron HCl 4 mg Q4HP PRN IV 01/06/25 20:30 Enoxaparin Sodium 40 mg DAILY SC 01/07/25 10:00 01/14/25 12:32 40 MG Acetaminophen 650 mg Q6HP PRN PO 01/06/25 20:30 Budesonide 0.5 mg BID NEB 01/07/25 22:00 01/14/25 19:37 0.5 MG Hydralazine HCl 10 mg Q6HP PRN IV 01/10/25 10:30 01/12/25 21:41 10 MG Nicotine 1 patch DAILY TD 01/10/25 13:00 01/14/25 12:31 1 PATCH Lorazepam 1 mg Q4HPRN PRN PO 01/10/25 16:15 01/10/25 21:36 1 MG Amlodipine Besylate 10 mg DAILY PO 01/11/25 10:00 01/14/25 12:27 10 MG Multivitamins 1 tab DAILY PO 01/11/25 10:00 01/14/25 12:26 1 TAB Thiamine HCl 100 mg DAILY PO 01/11/25 10:00 01/14/25 12:26 100 MG Ipratropium [place] 0.5 mg Q6HR NEB 01/11/25 12:00 01/14/25 19:36 0.5 MG Cefepime HCl 50 ml @ 12.5 mls/hr Q8HR IV 01/11/25 14:00 01/14/25 21:29 12.5 MLS/HR Enteral Nutritional Formula 240 ml BIDWM PO 01/12/25 18:00 01/14/25 21:01 240 ML Losartan Potassium 50 mg DAILY PO 01/13/25 10:28 01/14/25 12:29 50 MG Pantoprazole Sodium 40 mg DAILY@0600 PO 01/14/25 06:00 01/14/25 06:01 40 MG Docusate Sodium 100 mg BID PO 01/13/25 10:00 Methylprednisolone Sodium Succinate 20 mg Q12H IV 01/14/25 18:00 01/14/25 20:56 20 MG Levalbuterol HCl 0.625 mg Q6HR NEB 01/14/25 18:00 01/14/25 19:37 0.625 MG objective Gen.: Patient lying in bed in no apparent distress. On supplemental oxygen. Head: Normocephalic, atraumatic. Eyes: EOMI/PERRLA. Ears: Normal hearing. Normal anatomy. Neck/trachea: Trachea midline, supple. Nose: Normal external anatomy. Mouth: Moist mucous membranes. Chest: Decreased air entry bilaterally. No wheezing or rhonchi. Cardiovascular: Positive S1, positive S2. Regular rate and rhythm. Abdomen: Positive bowel sounds in all 4 quadrants. Soft, non-tender, non- distended. : Deferred. Rectal: Deferred. Skin: Warm, dry. Intact. Extremities: 2+ radial pulses bilaterally. No lower extremity edema. Neuro: Awake, alert, oriented x3. No gross motor or sensory deficits. Cranial nerves II through XII intact. Gait not assessed. laboratory and microbiology Laboratory Tests 01/13/25 11:19 Test 01/13/25 11:19 Range/Units Serum Glucose 127 H 74-106 mg/dL Assessment/Plan Impression: Acute hypoxic respiratory failure Acute COPD exacerbation Hyponatremia, resolved Nicotine dependence Atelectasis Events: Remains on supplemental oxygen On 4 LPM via NC Unable to taper down O2 STAT ABG obtained, compensated. Chest x-ray reviewed, demonstrates lingular atelectasis Abdominal x-ray obtained due to abdominal distention - Nonspecific bowel gas pattern with distended loops of small bowel. Continue bronchodilators Pulmicort BID IV steroids - taper as tolerated Continue antibiotics. Ensure for nutritional supplementation Monitor renal function Monitor electrolytes. Supplement as necessary. Monitor ins and outs. NRT - nicotine patch GI prophylaxis - Protonix BID DVT prophylaxis - Lovenox Rest of plan as outlined below. Plan: s/p extubation on 01/10/25 Supplemental oxygen Titrate to keep O2 sats above 92% Continue bronchodilators q.6 hours. IV steroids Continue antibiotics. Monitor renal function Monitor electrolytes. Supplement as necessary. Monitor ins and outs. Hyponatremia - resolved GI prophylaxis - Protonix BID DVT prophylaxis - Lovenox. Prognosis: Guarded given patient's multiple co-morbidities. Rest of plan per hospitalist and other consultants. A total of 51 minutes of clinical care time was spent reviewing the patient record, examining the patient, making a diagnostic and therapeutic plan, discussing this plan with the medical personnel, following up on diagnostic studies and following the patient for clinical stability excluding any and all procedures. At least 50% of this time was spent in direct, [id number] contact. Thank you, HELEN Lambert, for allowing me to participate in this patient's care. Further recommendations will depend on the patient's clinical course. Please do not hesitate to contact me if you have any questions or concerns. This medical document was created using an electronic medical record system with [employer] dictation system. Although these documentations are being carefully reviewed, there may still be some phonetic and typographical changes. The errors are purely typographical, due to imperfection on the software program, and do not reflect any compromise in the patient's medical care. Dietary Evaluation Review Comments: 1. Recommend TPN or TF> 7 days NPO 2. Consider MEDICARE BILLER consult for PO diet advancement Expected Outcomes/Goals: 1. Pt will meet >75% of estimated needs within 2-3 days Plan discussed with: Patient, Other (GIFTY Smith) MARITZA FRAZIER MD Jan 14, 2025 22:44
[2025-01-15] VITALS (16 sets, daily range): BP systolic 91–168; BP diastolic 60–115; PULSE 86–118; RESP 18–26; TEMP 97.4–98.6; O2SAT 94–100
[2025-01-15] MEDS: HALOPERIDOL LACTATE 5 MG/ML INJ VIAL IV PRN (12:10)
[2025-01-15 14:28] LABS: Base Excess 4.5 mmol/L (-2.0-3.0)
[2025-01-15 14:46] LABS: Basophils # (auto) 0 10 ^3/uL (0-0.2); Basophils % (auto) 0.3 % (0.0-2.0); Eosinophils # (auto) 0.1 10 ^3/uL (0-0.8); Eosinophils % (auto) 0.4 % (0.0-7.0); Hematocrit 45.8 % (41.0-53.0); Hemoglobin 15.1 g/dL (13.5-17.5); Lymphocytes # (auto) 1.7 10 ^3/uL (0.4-5.4); Lymphocytes % (auto) 10.4 % (10.0-50.0); Mean Corpuscular Hemoglobin 33.9 pg (28.0-32.0); Mean Corpuscular Hgb Conc. 32.9 g/dL (32.0-36.0); Mean Corpuscular Volume 102.8 fL (80.0-100.0); Monocytes # (auto) 2.4 10 ^3/uL (0-1.3); Monocytes % (auto) 14.9 % (0.0-12.0); Neutrophils # (auto) 11.9 10 ^3/uL (1.6-8.6); Platelet Count (auto) 297 10^3/uL (140-450); Red Blood Cells 4.45 10^6/uL (4.5-5.90); Red Cell Distribution Width 12.6 % (11.8-14.3); White Blood Cell 16.1 10^3/uL (4.4-10.8)
[2025-01-15 15:04] LABS: Chloride 102 mmol/L (98-107); Potassium 3.9 mmol/L (3.5-5.1); Sodium 142 mmol/L (136-145)
[2025-01-15 15:05] LABS: Anion Gap 8 (5-15)
[2025-01-15 15:06] LABS: Calcium 9.9 mg/dL (8.7-10.4)
[2025-01-15 15:10] LABS: BUN/Creatinine Ratio 35.5 (10.0-20.0)
[2025-01-15] MEDS: metroNIDAZOLE 500MG/100ML 100 ML IV SCH (15:11)
[2025-01-15 15:13] LABS: Blood Urea Nitrogen 27 mg/dL (9-23); Carbon Dioxide 32 mmol/L (20-31); Glucose 116 mg/dL (74-106)
--- NOTE | 2025-01-15 15:56 | DVHPN2 ---
Subjective Patient now with acute delirium and visual hallucinations Reviewed: Care Plan, H&P, Labs, Medications Changes from previous H/P or p: Changes General: Per HPI Objective Vitals Vital Signs Date Time Temp Pulse Resp B/P (MAP) Pulse Ox O2 Delivery O2 Flow Rate FiO2 01/15/25 12:49 111 22 95 01/15/25 12:41 Nasal Cannula 4.0 01/15/25 12:41 36 01/15/25 11:48 97.6 145/96 (112) 97.6 Intake/Output Intake and Output 01/15/25 07:00 Intake Total 1108 ml Output Total 3350 ml Balance -2242 ml Intake Oral 1008 ml IV Total 100 ml Output Urine Total 3350 ml # Bowel Movements 4 General Appearance: Alert, Oriented X3, Cooperative, No acute distress HEENT: Atraumatic, PERRLA Lungs: Clear to auscultation, Normal air movement Cardiovascular: Normal S1, Normal S2, No murmurs, Gallops, Rubs Abdomen: Normal bowel sounds, Soft, No tenderness Musculoskeletal: Normal sensory function, Normal motor function Neuro: Cranial nerves 3-12 NL Skin: Dry, Intact Psych/Mental Status: Other (Patient was having visual hallucinations.) Medications Current Medications Medications Dose Ordered Sig/Marisol Route Start Time Stop Time Status Last Admin Dose Admin Nitroglycerin 0.4 mg Q5MINP PRN SL 01/06/25 20:00 Morphine Sulfate 2 mg Q30M PRN IV 01/06/25 20:00 Ondansetron HCl 4 mg Q4HP PRN IV 01/06/25 20:30 Enoxaparin Sodium 40 mg DAILY SC 01/07/25 10:00 01/14/25 12:32 40 MG Acetaminophen 650 mg Q6HP PRN PO 01/06/25 20:30 Budesonide 0.5 mg BID NEB 01/07/25 22:00 01/15/25 07:06 0.5 MG Hydralazine HCl 10 mg Q6HP PRN IV 01/10/25 10:30 01/15/25 09:43 10 MG Nicotine 1 patch DAILY TD 01/10/25 13:00 01/15/25 09:32 1 PATCH Lorazepam 1 mg Q4HPRN PRN PO 01/10/25 16:15 01/10/25 21:36 1 MG Amlodipine Besylate 10 mg DAILY PO 01/11/25 10:00 01/14/25 12:27 10 MG Multivitamins 1 tab DAILY PO 01/11/25 10:00 01/14/25 12:26 1 TAB Thiamine HCl 100 mg DAILY PO 01/11/25 10:00 01/14/25 12:26 100 MG Ipratropium [place] 0.5 mg Q6HR NEB 01/11/25 12:00 01/15/25 07:07 0.5 MG Enteral Nutritional Formula 240 ml BIDWM PO 01/12/25 18:00 01/14/25 21:01 240 ML Losartan Potassium 50 mg DAILY PO 01/13/25 10:28 01/14/25 12:29 50 MG Pantoprazole Sodium 40 mg DAILY@0600 PO 01/14/25 06:00 01/14/25 06:01 40 MG Docusate Sodium 100 mg BID PO 01/13/25 10:00 Levalbuterol HCl 0.625 mg Q6HR NEB 01/14/25 18:00 01/15/25 12:41 0.625 MG Haloperidol Lactate 2.5 mg Q8HP PRN IV 01/15/25 11:15 01/15/25 12:10 2.5 MG Saccharomyces Boulardii 250 mg BID PO 01/15/25 22:00 Metronidazole 100 ml @ 100 mls/hr Q8HR IV 01/15/25 14:00 01/15/25 15:11 100 MLS/HR Laboratory Results Laboratory Tests 01/15/25 14:20 Chemistry Test 01/15/25 14:20 Calcium Level 9.9 mg/dL (8.7-10.4) Blood Gas Results Test 01/14/25 18:00 01/15/25 14:17 Arterial Blood pH 7.460 (7.350-7.450) 7.461 (7.350-7.450) FiO2 % 36.0 36.0 Microbiology Microbiology Date/Time Source Procedure Growth Status 01/08/25 09:53 Nose MRSA Screen - Final Complete 01/06/25 19:48 Urine - [place] Urine Culture - Final Complete 01/06/25 18:00 Sputum Gram Stain - Final Resulted 01/06/25 18:00 Respiratory Culture - Preliminary Citrobacter freundii Resulted 01/06/25 17:30 Blood Blood Culture - Final NO GROWTH AFTER 5 DAYS OF INCUBATION. Complete Labs and/or images reviewed: Labs reviewed by me, Image(s) reviewed by me Assessment/Plan Assessment/Plan Impression: -acute hypoxic respiratory failure -acute COPD exacerbation -primary hypertension -GERD -acute delirium Plan: -events: Worsening neurological status with visual hallucinations and confusion. Multiple calls/pages were received regarding patient's mental status, as well as respiratory status. Repeat ABG, BMP, CBC ordered. White blood [place] [id number]. KUB ordered last night with dilated bowels. Patient continues to use had BM. Stop IV antibiotic therapy for pneumonia given adequate course. Start Flagyl and Florastor for questionable colitis. C diff pending. Transfer to step-down ICU. -continue O2 supplementation via nasal cannula to keep saturation greater than 91% -decrease Solu-Medrol to 20 mg IV b.i.d.. Change albuterol to Xopenex given tachycardia -PUD, DVT prophylaxis -nicotine patch -continue antibiotic therapy with cefepime -MVI, thiamine -amlodipine 10, losartan 50 -Haldol 2.5 mg IV q.12 hours p.r.n. -BiPAP p.r.n. -PT consultation. Noted to ambulate approximately 5 ft -long discussion made with the patient's family who was bedside regarding acute delirium as well as plan of care post hospitalization. is agreeable to shelter facility if he does not progress in the next several days. Critical care time spent with patient discussing and formulating plan of care: 40 minutes. This does not include time spent performing procedures. This medical document was created using an electronic medical record system with [employer] dictation system. Although this document has been carefully reviewed, there may still be some phonetic and typographical errors. These areas are purely typographical due to imperfections of the software programs, and do not reflect any compromise in the patient's medical care. Plan discussed with: Patient, Other (RN) My Orders Orders - SANTY SUAREZ NP Procedure Category Date Status Time Haloperidol Lactate PHA 01/15/25 In Process Injection (Haldol) 11:15 Transfer Orders XFER 01/15/25 Transmitted 11:10 Transfer Orders XFER 01/15/25 Transmitted 13:02 BIPAP RT 01/15/25 Logged 13:02 Florastor (S. PHA 01/15/25 In Process Boulardii) (Florastor) 22:00 Metronidazole PHA 01/15/25 In Process 500mg/100ml (Flagyl 14:00 Abg W/ Co-Ox RT 01/15/25 Logged 14:06 Date of Service: Jan 15, 2025 Billing Provider: SANTY SUAREZ NP Common Visit Codes: 08104-SZX/OBS DISCH DAY >30min SANTY SUAREZ NP Jan 15, 2025 15:56
[2025-01-15] MEDS: FLORASTOR (S. BOULARDII) 250 MG CAP PO SCH (21:07)
--- NOTE | 2025-01-15 22:08 | DVHPN2 ---
Progress Note - Dictate Date Seen: Jan 15, 2025 Medical Necessity Reason Pt with a Central, PICC or Fol: Yes The following are medically ne: Central Line, Yao Catheter Reason for yao catheter: Strict I&O Subjective Patient seen and examined at bedside. Remains on supplemental oxygen Overnight events reviewed. vital signs Vital Sign Date Time Temp Pulse Resp B/P (MAP) Pulse Ox O2 Delivery O2 Flow Rate FiO2 01/15/25 18:46 95 Nasal Cannula* 4 36 01/15/25 18:45 114 20 01/15/25 18:07 166/97 01/15/25 17:00 98.3 98.3 Total Intake and Output 01/14/25 01/14/25 01/15/25 15:00 23:00 07:00 Intake Total 758 ml 350 ml Output Total 450 ml 300 ml 2600 ml Balance -450 ml 458 ml -2250 ml medications Current Medications Medications Dose Ordered Sig/Marisol Route Start Time Stop Time Status Last Admin Dose Admin Nitroglycerin 0.4 mg Q5MINP PRN SL 01/06/25 20:00 Morphine Sulfate 2 mg Q30M PRN IV 01/06/25 20:00 Ondansetron HCl 4 mg Q4HP PRN IV 01/06/25 20:30 Enoxaparin Sodium 40 mg DAILY SC 01/07/25 10:00 01/14/25 12:32 40 MG Acetaminophen 650 mg Q6HP PRN PO 01/06/25 20:30 Budesonide 0.5 mg BID NEB 01/07/25 22:00 01/15/25 18:45 0.5 MG Hydralazine HCl 10 mg Q6HP PRN IV 01/10/25 10:30 01/15/25 18:07 10 MG Nicotine 1 patch DAILY TD 01/10/25 13:00 01/15/25 09:32 1 PATCH Lorazepam 1 mg Q4HPRN PRN PO 01/10/25 16:15 01/10/25 21:36 1 MG Amlodipine Besylate 10 mg DAILY PO 01/11/25 10:00 01/14/25 12:27 10 MG Multivitamins 1 tab DAILY PO 01/11/25 10:00 01/14/25 12:26 1 TAB Thiamine HCl 100 mg DAILY PO 01/11/25 10:00 01/14/25 12:26 100 MG Ipratropium [place] 0.5 mg Q6HR NEB 01/11/25 12:00 01/15/25 18:45 0.5 MG Enteral Nutritional Formula 240 ml BIDWM PO 01/12/25 18:00 01/14/25 21:01 240 ML Losartan Potassium 50 mg DAILY PO 01/13/25 10:28 01/14/25 12:29 50 MG Pantoprazole Sodium 40 mg DAILY@0600 PO 01/14/25 06:00 01/14/25 06:01 40 MG Docusate Sodium 100 mg BID PO 01/13/25 10:00 Levalbuterol HCl 0.625 mg Q6HR NEB 01/14/25 18:00 01/15/25 18:45 0.625 MG Haloperidol Lactate 2.5 mg Q8HP PRN IV 01/15/25 11:15 01/15/25 20:57 2.5 MG Saccharomyces Boulardii 250 mg BID PO 01/15/25 22:00 Metronidazole 100 ml @ 100 mls/hr Q8HR IV 01/15/25 14:00 01/15/25 20:58 100 MLS/HR objective Gen.: Patient lying in bed in no apparent distress. On supplemental oxygen. Head: Normocephalic, atraumatic. Eyes: EOMI/PERRLA. Ears: Normal hearing. Normal anatomy. Neck/trachea: Trachea midline, supple. Nose: Normal external anatomy. Mouth: Moist mucous membranes. Chest: Decreased air entry bilaterally. No wheezing or rhonchi. Cardiovascular: Positive S1, positive S2. Regular rate and rhythm. Abdomen: Positive bowel sounds in all 4 quadrants. Soft, non-tender, non- distended. : Deferred. Rectal: Deferred. Skin: Warm, dry. Intact. Extremities: 2+ radial pulses bilaterally. No lower extremity edema. Neuro: Awake, alert, oriented x3. No gross motor or sensory deficits. Cranial nerves II through XII intact. Gait not assessed. laboratory and microbiology Laboratory Tests 01/15/25 14:20 Test 01/15/25 14:20 Range/Units Serum Glucose 116 H 74-106 mg/dL Assessment/Plan Impression: Acute hypoxic respiratory failure Acute COPD exacerbation Hyponatremia, resolved Nicotine dependence Atelectasis Events: Remains on supplemental oxygen On 4 LPM via NC Unable to taper down O2 ABG on 01/14 reviewed, notable for alkalemia Chest/abdominal x-ray demonstrated distended loops of small bowel. Lung bases were unremarkable. No acute osseous abnormality. See report for full details. Stop Solu-Medrol - patient altered Continue antibiotics. Continue bronchodilators Pulmicort BID Ensure for nutritional supplementation Monitor renal function Monitor electrolytes. Supplement as necessary. Potassium supplementation Monitor ins and outs. NRT - nicotine patch GI prophylaxis - Protonix BID DVT prophylaxis - Lovenox Rest of plan as outlined below. Plan: s/p extubation on 01/10/25 Supplemental oxygen Titrate to keep O2 sats above 92% Continue bronchodilators q.6 hours. DC steroids as patient altered Continue antibiotics. Monitor renal function Monitor electrolytes. Supplement as necessary. Monitor ins and outs. Hyponatremia - resolved GI prophylaxis - Protonix BID DVT prophylaxis - Lovenox. Prognosis: Guarded given patient's multiple co-morbidities. Rest of plan per hospitalist and other consultants. A total of 51 minutes of clinical care time was spent reviewing the patient record, examining the patient, making a diagnostic and therapeutic plan, discussing this plan with the medical personnel, following up on diagnostic studies and following the patient for clinical stability excluding any and all procedures. At least 50% of this time was spent in direct, [id number] contact. Thank you, HELEN Lambert, for allowing me to participate in this patient's care. Further recommendations will depend on the patient's clinical course. Please do not hesitate to contact me if you have any questions or concerns. This medical document was created using an electronic medical record system with [employer] computerized dictation system. Although these documentations are being carefully reviewed, there may still be some phonetic and typographical changes. The errors are purely typographical, due to imperfection on the software program, and do not reflect any compromise in the patient's medical care. Dietary Evaluation Review Comments: 1. Recommend TPN or TF> 7 days NPO 2. Consider EMBOSSING CLERK consult for PO diet advancement Expected Outcomes/Goals: 1. Pt will meet >75% of estimated needs within 2-3 days Plan discussed with: Patient, Other (GIFTY Graham) MARITZA FRAZIER MD Jan 15, 2025 22:08
[2025-01-16] VITALS (16 sets, daily range): BP systolic 142–150; BP diastolic 60–98; PULSE 95–126; RESP 18–34; TEMP 98.2–98.7; O2SAT 95–100
--- NOTE | 2025-01-16 17:16 | DVH ---
CHEST RADIOGRAPH Indication: r/o aspiration PNA Technique: Single frontal view of the chest was obtained Comparison: XY CHEST XRAY 1 VIEW on DOS: 01/14/25, XY CHEST PORTABLE on DOS: 01/11/25, XY CHEST PORTABL E on DOS: 01/10/25 FINDINGS: Lines and Tubes: None Lungs: No focal consolidation. Unchanged linear density of the left mid to lower lung zone. Mild loss of volume of the left lung. Pleura: No effusion. No pneumothorax. Cardiomediastinal contours: Unremarkable Bones: No acute osseous abnormality. IMPRESSION: Left mid to lower lung zone subsegmental atelectasis. No significant interval change from prior imag ing.
--- NOTE | 2025-01-16 20:49 | DVHPN2 ---
Progress Note - Dictate Date Seen: Jan 16, 2025 Medical Necessity Reason Pt with a Central, PICC or Fol: Yes The following are medically ne: Central Line, Yao Catheter Reason for yao catheter: Strict I&O Subjective Patient seen and examined at bedside. Remains on supplemental oxygen Overnight events reviewed. vital signs Vital Sign Date Time Temp Pulse Resp B/P (MAP) Pulse Ox O2 Delivery O2 Flow Rate FiO2 01/16/25 20:00 Nasal Cannula* 4 36 01/16/25 19:30 120 26 100 01/16/25 17:00 98.6 147/78 (101) 98.6 Total Intake and Output 01/15/25 01/15/25 01/16/25 15:00 23:00 07:00 Intake Total 110 ml 220 ml 300 ml Output Total 550 ml 100 ml Balance 110 ml -330 ml 200 ml medications Current Medications Medications Dose Ordered Sig/Marisol Route Start Time Stop Time Status Last Admin Dose Admin Nitroglycerin 0.4 mg Q5MINP PRN SL 01/06/25 20:00 Morphine Sulfate 2 mg Q30M PRN IV 01/06/25 20:00 Ondansetron HCl 4 mg Q4HP PRN IV 01/06/25 20:30 Enoxaparin Sodium 40 mg DAILY SC 01/07/25 10:00 01/16/25 11:00 40 MG Acetaminophen 650 mg Q6HP PRN PO 01/06/25 20:30 Budesonide 0.5 mg BID NEB 01/07/25 22:00 01/16/25 19:22 0.5 MG Hydralazine HCl 10 mg Q6HP PRN IV 01/10/25 10:30 01/15/25 18:07 10 MG Nicotine 1 patch DAILY TD 01/10/25 13:00 01/16/25 11:00 1 PATCH Lorazepam 1 mg Q4HPRN PRN PO 01/10/25 16:15 01/10/25 21:36 1 MG Amlodipine Besylate 10 mg DAILY PO 01/11/25 10:00 01/16/25 11:01 10 MG Multivitamins 1 tab DAILY PO 01/11/25 10:00 01/16/25 11:00 1 TAB Thiamine HCl 100 mg DAILY PO 01/11/25 10:00 01/16/25 11:01 100 MG Ipratropium [place] 0.5 mg Q6HR NEB 01/11/25 12:00 01/16/25 19:22 0.5 MG Enteral Nutritional Formula 240 ml BIDWM PO 01/12/25 18:00 01/16/25 08:00 240 ML Losartan Potassium 50 mg DAILY PO 01/13/25 10:28 01/16/25 11:01 50 MG Pantoprazole Sodium 40 mg DAILY@0600 PO 01/14/25 06:00 01/14/25 06:01 40 MG Docusate Sodium 100 mg BID PO 01/13/25 10:00 01/16/25 11:00 100 MG Levalbuterol HCl 0.625 mg Q6HR NEB 01/14/25 18:00 01/16/25 19:22 0.625 MG Haloperidol Lactate 2.5 mg Q8HP PRN IV 01/15/25 11:15 01/16/25 06:48 2.5 MG Saccharomyces Boulardii 250 mg BID PO 01/15/25 22:00 01/16/25 11:01 250 MG Metronidazole 100 ml @ 100 mls/hr Q8HR IV 01/15/25 14:00 01/16/25 18:12 100 MLS/HR objective Gen.: Patient lying in bed in no apparent distress. On supplemental oxygen. Head: Normocephalic, atraumatic. Eyes: EOMI/PERRLA. Ears: Normal hearing. Normal anatomy. Neck/trachea: Trachea midline, supple. Nose: Normal external anatomy. Mouth: Moist mucous membranes. Chest: Decreased air entry bilaterally. No wheezing or rhonchi. Cardiovascular: Positive S1, positive S2. Regular rate and rhythm. Abdomen: Positive bowel sounds in all 4 quadrants. Soft, non-tender, non- distended. : Deferred. Rectal: Deferred. Skin: Warm, dry. Intact. Extremities: 2+ radial pulses bilaterally. No lower extremity edema. Neuro: Awake, alert, oriented x3. No gross motor or sensory deficits. Cranial nerves II through XII intact. Gait not assessed. laboratory and microbiology Laboratory Tests 01/15/25 14:20 Test 01/15/25 14:20 Range/Units Serum Glucose 116 H 74-106 mg/dL Assessment/Plan Impression: Acute hypoxic respiratory failure Acute COPD exacerbation Hyponatremia, resolved Nicotine dependence Atelectasis Events: Remains on supplemental oxygen Tapered from 4 LPM --> 1 LPM via NC Continue to taper O2 as tolerated Improved O2 requirements Chest x-ray demonstrated Left mid to lower lung zone subsegmental atelectasis. No significant interval change. Continue antibiotics. WBC elevated, possibly due to steroids Continue bronchodilators Pulmicort BID Ensure for nutritional supplementation Monitor renal function Monitor electrolytes. Supplement as necessary. Potassium supplementation Monitor ins and outs. NRT - nicotine patch GI prophylaxis - Protonix BID DVT prophylaxis - Lovenox Rest of plan as outlined below. Plan: s/p extubation on 01/10/25 Supplemental oxygen Titrate to keep O2 sats above 92% Continue bronchodilators q.6 hours. Steroids discontinued as patient altered Continue antibiotics. Monitor renal function Monitor electrolytes. Supplement as necessary. Monitor ins and outs. Hyponatremia - resolved GI prophylaxis - Protonix BID DVT prophylaxis - Lovenox. Prognosis: Guarded given patient's multiple co-morbidities. Rest of plan per hospitalist and other consultants. A total of 51 minutes of clinical care time was spent reviewing the patient record, examining the patient, making a diagnostic and therapeutic plan, discussing this plan with the medical personnel, following up on diagnostic studies and following the patient for clinical stability excluding any and all procedures. At least 50% of this time was spent in direct, [id number] contact. Thank you, HELEN Lambert, for allowing me to participate in this patient's care. Further recommendations will depend on the patient's clinical course. Please do not hesitate to contact me if you have any questions or concerns. This medical document was created using an electronic medical record system with [employer] dictation system. Although these documentations are being carefully reviewed, there may still be some phonetic and typographical changes. The errors are purely typographical, due to imperfection on the software program, and do not reflect any compromise in the patient's medical care. Dietary Evaluation Review Comments: 1. Recommend TPN or TF> 7 days NPO 2. Consider RAG CUTTING MACHINE TENDER consult for PO diet advancement Expected Outcomes/Goals: 1. Pt will meet >75% of estimated needs within 2-3 days Plan discussed with: Patient, Other (GIFTY Yu) MARITZA FRAZIER MD Jan 16, 2025 20:49
[2025-01-17 00:23] VITALS: PULSE 125; RESP 28; O2SAT 97
[2025-01-17 00:29] VITALS: PULSE 109; RESP 29; O2SAT 99
--- NOTE | 2025-01-17 04:10 | RESUS ---
CODE BLUE ASSESSSMENT History of Events History of Events: 64y M who presents to the ED via EMS for chief complaint of shortness of breath. Pt states he has been having shortness of breath 30 mins prior to calling EMS. EMS states pt has history of COPD and attempted to use his inhaler with no relief and called EMS. Pt states he had 1 prior episode in the past with respiratory distress and states he taken to ED and intubated. Upon EMS arrival, pt has 02 sat of 77% on room air with noted respiratory distress and pt was given breathing treatment, 1g nitro paste, and placed on CPAP with 02 sat rising to 92%. EMS states pt was placed on EMS gurney and en route to the ED, pt started to become diaphoretic and tachycardic. Pt in the ED, able to speak in 2 word sentence. pt was intubated and admitted to icu. pt was extubated on 01/10, and transferred to telemetry on 01/15. on 01/16 pt was vomitting coffee ground fluids and was upgrated to regina. tonight started vomiting again became bradycardic then pulseless. Initial Information Date: Jan 17, 2025 Time: :36 [place]rest[place] Witnessed: Yes CPR started initial time: 02:36 CPR started by whom: Hospital Staff Pre-Hospital Care: ACLS Type of arrest: Cardiac, Respiratory, Adult, Witnessed Spontaneous Respirations: No Pulse Present: No Monitoring: ECG Crash Cart Opened and Supplies: Yes Airway Ventilation Breathing at Onset: Apneic O2 Sat by Pulse Oximetry: 0 Oxygen Delivery Method: Ambu-Bag Time of first Assisted Ventila: 02:42 Artificial Ventilation: Bag/Endo tube Intubation Time: 02:47 Intubation Size: 8.0 cuffed Intubated by: DR MACHADO Intubation Attempts: 1 Intubated orally: Yes Intubated Nasaly: No Tube secured at: 24 CO2 indicator used: Yes Confirmation: Auscultation, Exhaled CO2 Suctioning (Oral/Tracheal): Yes Comments: coffee grounds Circulation Circulation : Time: 02:36 Pulse Rate (adult): 0 Blood Pressure Systolic: 0 Blood Pressure Diastolic: 0 Temperature (Fahrenheit): 100 Defibrillation Defbrillation #1: Time Defibrillator Applied: 02:56 EKG Rhythm: V-Fibrillation Compressions: Device Compressions Hold/Resume: 0256 Time Defibrillator Shocked Pt.: 02:56 Defib. Joules: 120 Pulse Present: No EKG Rhythm: V-Fibrillation Defbrillation #2: Time Defibrillator Applied: 02:58 EKG Rhythm: V-Fibrillation Compressions: Device Compressions Hold/Resume: 0258 Time Defibrillator Shocked Pt.: 02:58 Defib. Joules: 200 Pulse Present: No EKG Rhythm: V-Fibrillation Defbrillation #3: Time Defibrillator Applied: 03:00 EKG Rhythm: V-Fibrillation Compressions: Device Compressions Hold/Resume: 0300 Time Defibrillator Shocked Pt.: 03:00 Defib. Joules: 200 Pulse Present: No EKG Rhythm: V-Fibrillation Defbrillation #4: Time Defibrillator Applied: 03:02 EKG Rhythm: V-Fibrillation Compressions Hold/Resume: 0302 Time Defibrillator Shocked Pt.: 03:02 Defib. Joules: 200 Pulse Present: No EKG Rhythm: V-Fibrillation Defbrillation #5: Time Defibrillator Applied: 03:04 Compressions: Device Compressions Hold/Resume: 0304 Time Defibrillator Shocked Pt.: 03:04 Defib. Joules: 200 Pulse Present: No EKG Rhythm: V-Tachycardia Comment pulseless Procedure - IV Procedure - IV : IV start time: :44 IV Side: Right IV Location: Wrist IV Placed: In Hospital IV Placed by TONG DURBIN IV Gauge: 20 IV Line Care: Saline Flush Medications & Response Medications and Responses #1: Medication Time: 02:44 ADULT Medications Given ADULT: Epinephrine 1 mg, Sodium Bacarbinate 50 meq, Calcium Chloride 10 mL Route of Administration: IV Heart Rate: 0 EKG Rhythm: Asystole Blood Pressure Systolic: 0 Blood Pressure Diastolic: 0 Respiratory Rate: 0 O2 Sat by Pulse Oximetry: 0 EKG Rhythm: Asystole Comment PULSE CHECK 0246 NO PULSE Medications and Responses #2: Medication Time: 02:47 ADULT Medications Given ADULT: Epinephrine 1 mg, 2 Amps Na Bicarb Route of Administration: IV Heart Rate: 0 EKG Rhythm: Asystole Blood Pressure Systolic: 0 Blood Pressure Diastolic: 0 Respiratory Rate: 0 O2 Sat by Pulse Oximetry: 0 EKG Rhythm: Asystole Comment NO PULSE 0248 Medications and Responses #3: Medication Time: 02:50 ADULT Medications Given ADULT: Epinephrine 1 mg, Sodium Bacarbinate 50 meq, Calcium Chloride 10 mL Heart Rate: 0 EKG Rhythm: Asystole Blood Pressure Systolic: 0 Blood Pressure Diastolic: 0 Respiratory Rate: 0 O2 Sat by Pulse Oximetry: 0 EKG Rhythm: Asystole Comment NO PULSE 0252 Medications and Responses #4: Medication Time: 02:53 ADULT Medications Given ADULT: Epinephrine 1 mg Route of Administration: IV Heart Rate: 0 EKG Rhythm: Asystole Blood Pressure Systolic: 0 Blood Pressure Diastolic: 0 Respiratory Rate: 0 O2 Sat by Pulse Oximetry: 0 EKG Rhythm: PEA Comment NO PULSE 0254 Medications and Responses #5: Medication Time: 02:56 ADULT Medications Given ADULT: Epinephrine 1 mg Route of Administration: IV Heart Rate: 0 EKG Rhythm: V-Fibrillation Blood Pressure Systolic: 0 Blood Pressure Diastolic: 0 Respiratory Rate: 0 O2 Sat by Pulse Oximetry: 0 EKG Rhythm: V-Fibrillation Comment NO PULSE AT 0258 Medications and Responses #6: Medication Time: 02:59 ADULT Medications Given ADULT: Epinephrine 1 mg, Sodium Bacarbinate 50 meq Route of Administration: IV Heart Rate: 0 EKG Rhythm: V-Fibrillation Blood Pressure Systolic: 0 Blood Pressure Diastolic: 0 Respiratory Rate: 0 O2 Sat by Pulse Oximetry: 0 EKG Rhythm: V-Fibrillation Comment NO PULSE AT 0300 AND 0302 Medications and Responses #7: Medication Time: 03:02 ADULT Medications Given ADULT: Epinephrine 1 mg Route of Administration: IV Heart Rate: 0 Blood Pressure Systolic: 0 Blood Pressure Diastolic: 0 Respiratory Rate: 0 O2 Sat by Pulse Oximetry: 0 EKG Rhythm: V-Fibrillation Comment NO PULSE 0304 Medications and Responses #8: Medication Time: 03:05 ADULT Medications Given ADULT: Epinephrine 1 mg, Amiodarone 150 mg Route of Administration: IV Heart Rate: 0 EKG Rhythm: V-Tachycardia Blood Pressure Systolic: 0 Blood Pressure Diastolic: 0 Respiratory Rate: 0 O2 Sat by Pulse Oximetry: 0 EKG Rhythm: Asystole Comment NO PULSE AT 0306 PT PRONOUNCED AT 0307 Pacing Pacer Pads Applied and Pacing: Yes Pulse Present with Pacing: No Procedure - Mak Catheter Comment: PREVIOUSLY PLACED Nurses Notes Rosi Coma Scale Eye Opening: None (1) [place] Coma Scale Verbal: None (1) [place] Coma Scale Motor: None (1) [place] Total: 3 Pupil Reaction: Non Reactive Bedside Blood Glucose: 155 EKG Rhythm: Asystole Comment: PREVIOUSLY PLACED Time Code Ended Time Code Ended: 03:07 Post Arrest Status: Outcome of code: Unsuccessful Time patient pronounced: 03:07 Family notified: Yes Attending called: Yes Code Team Present: AGNIESZKA KHOURY, RAJESH CARPENTER RN HS, CAMPBELL DYE WEIGHER, TONG DYE WEIGHER, ANEUDY DYE WEIGHER ICU, GIDEON RN PRIMARY, ANANDA RT, FLACO RT, GILDA RT. Post Resuscitation Neurologica Pupil Size: 4 Comment: RAJESH BEAN Jan 17, 2025 04:10
--- NOTE | 2025-01-17 18:12 | DVHPN2 ---
Subjective The patient is seen and examined at bedside. On oxymizer. The patient is very confused . Daughter and son at bedside. The pa cristiana had been refused a lot of medication stating that he not feeling well to take them. The patient also refused physical therapy because he very weak. Per daughter his hallucination today is better. But he is still very confused Reviewed: Care Plan, H&P, Labs, Medications Changes from previous H/P or p: No Changes General: Per HPI Objective Vitals Vital Signs Date Time Temp Pulse Resp B/P (MAP) Pulse Ox O2 Delivery O2 Flow Rate FiO2 01/17/25 06:45 98 100 20 147/78 (101) 94% 01/16/25 04:36 01/16/25 00:23 01/16/25 00:23 32 01/15/25 17:00 Intake/Output Intake and Output 01/17/25 07:00 Intake Total 900 ml Output Total 1200 ml Balance -300 ml Intake Oral 700 ml IV Total 200 ml Output Urine Total 1200 ml General Appearance: Alert, Other (Confused) HEENT: Atraumatic, PERRLA Lungs: Clear to auscultation, Normal air movement Cardiovascular: Normal S1, Normal S2, No murmurs, Gallops, Rubs Abdomen: Normal bowel sounds, Soft, No tenderness Musculoskeletal: Normal sensory function, Normal motor function Neuro: Cranial nerves 3-12 NL Skin: Dry, Intact Psych/Mental Status: Other (Patient was having visual hallucinations and very confused) Laboratory Results Laboratory Tests 01/15/25 14:20 Microbiology Microbiology Date/Time Source Procedure Growth Status 01/14/25 19:00 Stool Clostridium difficile Toxin Assay - Final Complete 01/08/25 09:53 Nose MRSA Screen - Final Complete 01/06/25 19:48 Urine - Mak Port Urine Culture - Final Complete 01/06/25 18:00 Sputum Gram Stain - Final Resulted 01/06/25 18:00 Respiratory Culture - Preliminary Citrobacter freundii Resulted 01/06/25 17:30 Blood Blood Culture - Final NO GROWTH AFTER 5 DAYS OF INCUBATION. Complete Labs and/or images reviewed: Labs reviewed by me Assessment/Plan Assessment/Plan -acute hypoxic respiratory failure -acute COPD exacerbation -primary hypertension -GERD -acute delirium Plan: -continuing current management. Today the patient had a episode projectile brow material without blood per nursing staff. We will keep the patient NPO. We will elevate his head above 30. I will get a stat chest x-ray. - per daughter his neurological status is improved however he still has visual hallucinations and confusion. Multiple calls/pages were received regarding patient's mental status, as well as respiratory status. Repeat ABG, BMP, CBC ordered. KUB ordered with dilated bowels. Patient continues to use had BM. Stop IV antibiotic therapy for pneumonia given adequate course. Start Flagyl and Florastor for questionable colitis. C diff pending. -continue O2 supplementation via nasal cannula to keep saturation greater than 91% -decrease Solu-Medrol to 20 mg IV b.i.d.. Change albuterol to Xopenex given tachycardia -PUD, DVT prophylaxis -nicotine patch -continue antibiotic therapy with cefepime -MVI, thiamine -amlodipine 10, losartan 50 -Haldol 2.5 mg IV q.12 hours p.r.n. -BiPAP p.r.n. -PT consultation. Noted to ambulate approximately 5 ft . Per daughter the patient can only take couple steps but had been sitting in chair yesterday for 40 minutes -long discussion made with the patient's family who was bedside regarding acute delirium as well as plan of care post hospitalization. The patient's prognosis is guarding due to his multiple comorbid. Today with his vomiting episode we will watch for aspirin pneumonia. Continuing IV antibiotic with Flagyl for now. We will monitor This medical document was created using an electronic medical record system with [employer] direct computerized dictation system. Although this document has been carefully reviewed, there may still be some phonetic and typographical errors. These areas are purely typographical due to imperfections of the software programs, and do not reflect any compromise in the patient's medical care. Plan discussed with: Patient Date of Service: Jan 16, 2025 Billing Provider: THERON HERNANDEZ MD Common Visit Codes: [id number] INP/OBS CARE(HIGH) THERON HERNANDEZ MD Jan 17, 2025 18:12
--- NOTE | 2025-01-17 18:12 | DVHDS2 ---
Discharge Summary Date of Admission Jan 06, 2025 at 20:03 Date of Discharge: Jan 17, 2025 Admitting Diagnosis -acute hypoxic respiratory failure -acute COPD exacerbation -primary hypertension -GERD -acute delirium Labs/Diagnostic Data: Laboratory Results Test 01/15/25 14:20 01/15/25 14:17 01/15/25 13:08 01/14/25 18:20 White Blood Count 16.1 10^3/uL (4.4-10.8) Red Blood Count 4.45 10^6/uL (4.5-5.90) Hemoglobin 15.1 g/dL (13.5-17.5) Hematocrit 45.8 % (41.0-53.0) Mean Corpuscular Volume 102.8 fL (80.0-100.0) Mean Corpuscular Hemoglobin 33.9 pg (28.0-32.0) Mean Corpuscular Hemoglobin Concent 32.9 g/dL (32.0-36.0) Red Cell Distribution Width 12.6 % (11.8-14.3) Platelet Count 297 10^3/uL (140-450) Mean Platelet Volume 7.4 fL (6.9-10.8) Neutrophils (%) (Auto) 74.0 % (37.0-80.0) Lymphocytes (%) (Auto) 10.4 % (10.0-50.0) Monocytes (%) (Auto) 14.9 % (0.0-12.0) Eosinophils (%) (Auto) 0.4 % (0.0-7.0) Basophils (%) (Auto) 0.3 % (0.0-2.0) Neutrophils # (Auto) 11.9 10 ^3/uL (1.6-8.6) Lymphocytes # (Auto) 1.7 10 ^3/uL (0.4-5.4) Monocytes # (Auto) 2.4 10 ^3/uL (0-1.3) Eosinophils # (Auto) 0.1 10 ^3/uL (0-0.8) Basophils # (Auto) 0 10 ^3/uL (0-0.2) Nucleated Red Blood Cells 0.0 % Sodium Level 142 mmol/L (136-145) Potassium Level 3.9 mmol/L (3.5-5.1) Chloride Level 102 mmol/L (98-107) Carbon Dioxide Level 32 mmol/L (20-31) Anion Gap 8 (5-15) Blood Urea Nitrogen 27 mg/dL (9-23) Creatinine 0.76 mg/dL (0.700-1.30) Glomerular Filtration Rate Calc 99 mL/min (>90) BUN/Creatinine Ratio 35.5 (10.0-20.0) Serum Glucose 116 mg/dL (74-106) Calcium Level 9.9 mg/dL (8.7-10.4) Blood Gas Specimen Type Arterial Blood Gas Sample Site Right radial Blood Gas Patient Temperature 37.0 Arterial Blood Date Drawn [id number] Arterial Blood pH 7.461 (7.350-7.450) Arterial Blood Partial Pressure CO2 41.2 mmHg (35.0-48.0) Arterial Blood Partial Pressure O2 73.4 mmHg (83.0-108.0) Arterial Blood HCO3 28.7 mmol/L (21.0-28.0) Arterial Blood Oxygen Saturation 94.3 % (94.0-98.0) Arterial Blood Base Excess 4.5 mmol/L (-2.0-3.0) Arterial Blood Oxyhemoglobin 92.7 % (94.0-98.0) Arterial Blood Carboxyhemoglobin 1.4 % (0.5-1.5) Arterial Blood Methemoglobin 0.3 % (0.0-1.5) Alex Test Yes Blood Gas Total Hemoglobin 15.60 g/dL (13.5-17.5) Blood Gas Liter Flow 4.00 Blood Gas Modality Nasal cannula FiO2 % 36.0 POC Glucose 134 mg/dl (70-106) Miscellaneous Referred Test ( Tmp Sent to [facility] Test 01/10/25 10:45 01/10/25 07:34 01/08/25 08:23 01/07/25 02:53 Blood Gas Spontaneous Rate 7 Blood Gas Spontaneous Tidal Volume 613 Blood Gas Inspiratory Pressure 16.0 Blood Gas PEEP or CPAP 5.0 Bl Gas Inspiratory/Expiratory Ratio 1:4.4 Specimen Drawn By mikey rt Blood Gas Set Respiration Rate 20.0 Blood Gas Tidal Volume 500.0 Blood Gas Critical Value Read Back Yes Magnesium Level 1.8 mg/dL (1.6-2.6) Total Bilirubin 0.6 mg/dL (0.2-1.0) Aspartate Amino Transferase (AST) 70 U/L (13-40) Alanine Aminotransferase (ALT) 47 U/L (7-40) Alkaline Phosphatase 71 U/L (46-116) Total Protein 6.2 g/dL (5.7-8.2) Albumin 4.3 g/dL (3.2-4.8) Test 01/06/25 20:45 01/06/25 20:18 01/06/25 19:38 01/06/25 18:24 Troponin I High Sensitivity 14 ng/L (</=54) Blood Gas Notified Whom raymond Serrano md Blood Gas Notified Time [id number] Blood Gas Notified By rosa Tate rrt Lactic Acid Level 1.2 mmol/L (0.4-2.0) Influenza Type A Antigen Negative (Negative) Influenza Type B Antigen Negative (Negative) SARS-CoV-2 Antigen (Rapid) Negative (NEGATIVE) Test 01/06/25 17:30 D-Dimer, Quantitative 0.87 mg/L FEU (0.0-0.49) B-Type Natriuretic Peptide 46.30 pg/mL (0-100) Other Laboratory Tests 01/15/25 14:20 Brief Hx & Hospital Course: This is a 64 years old male came to emergency department because severe shortness for breath. Patient presents with one day history of worsening shortness for breath. Patient has history of COPD. Patient had used in hill nebulizer at home without relief. The patient's saturation oxygen was 70% and progressive more obtunded in ER. The patient was intubated for airway protection. The patient subsequently was extubated and continuing to have severe shortness a breath and weakness. The patient was on IV antibiotic with Rocephin and Zithromax. Subsequently the patient started having diarrhea and was suspected to have C diff colitis. The C diff stool was sent and the result was not back however the patient diarrhea stopped. The patient had abdominal pain and imaging starting showed dilated bowel. The patient was on Flagyl. . The patient also had visual hallucination and worsened mental status. Subsequently his visual hallucination improved but patient is still very confused. Patient had a hard time working with physical therapy and only able to sit on chair and take couple steps. The patient had an episode of projectile vomiting yesterday with brown material but no blood. Stat chest x- ray was done and it showed:Left mid to lower lung zone subsegmental atelectasis. No significant interval change from prior imaging. Hemoglobin stable at 15. The patient was kept NPO except med. The patient also refused med because he doesn't feel well. The patient had was elevated 30 degree. Today about 2:30 0 a.m. the nurse found the patient unresponsive with dark brown fluid dripping from his mouth. CPR or was initiated however the patient remained asystole. The patient was pronounce at 3:07 a.m. Condition at Discharge: Unstable Final Diagnosis/Problems List -acute hypoxic respiratory failure -acute COPD exacerbation -primary hypertension -GERD -acute delirium -cardiac arrest Discharge Disposition: at Hospital Discharge Statement: "Patient was advised to return to the ER or call 911 if any headaches, dizziness, shortness of breath, chest pain, abdominal pain, bleeding, fevers, or worsening of medical condition. Patient was counseled about treatment plan, medications, possible side effects, patientverbalized understanding. All questions were answered to the best of my ability. This discharge took greater then 30 minutes in planning, reviewing documentation, counseling the patient, and discussing with other team members." ASSESSMENT ASSESSMENT Assessment Date of Service: Jan 17, 2025 Billing Provider: THERON HERNANDEZ MD Common Visit Codes: 75523-[id number] DISCH DAY >30min THERON HERNANDEZ MD Jan 17, 2025 18:12
== END 2025-01-17 07:57 | DRG 208 ==
LOC: EDBD 17:02 → ER 17:02 → OVERFLOW 20:03 → ICU WEST 01-07 00:23 → TELE-WESTW 01-11 11:09 → WEST WING 01-13 22:29 → TELE-WESTW 01-15 11:53
PROVIDERS: ADMIT Nurse Practitioner Acute Care; ATTEND Nurse Practitioner Acute Care
PROC: 0BH17EZ Insertion of Endotracheal Airway into Trachea, Via Natural or Artificial Opening (ICD-10-PCS; principal; 2025-01-06)
PROC: 5A1945Z Respiratory Ventilation, 24-96 Consecutive Hours (ICD-10-PCS; 2025-01-06)
PROC: 5A09357 Assistance with Respiratory Ventilation, Less than 24 Consecutive Hours, Continuous Positive Airway Pressure (ICD-10-PCS; 2025-01-06)
PROC: 02HV33Z Insertion of Infusion Device into Superior Vena Cava, Percutaneous Approach (ICD-10-PCS; 2025-01-07)
PROC: 5A12012 Performance of Cardiac Output, Single, Manual (ICD-10-PCS; 2025-01-17)
PROC: 5A2204Z Restoration of Cardiac Rhythm, Single (ICD-10-PCS; 2025-01-17)
DX: J96.01 Acute respiratory failure with hypoxia (principal); J44.1 Chronic obstructive pulmonary disease with (acute) exacerbation; E87.1 Hypo-osmolality and hyponatremia; E87.3 Alkalosis; I46.9 Cardiac arrest, cause unspecified; Z20.822 Contact with and (suspected) exposure to COVID-19; I10 Essential (primary) hypertension; K21.9 Gastro-esophageal reflux disease without esophagitis; K59.00 Constipation, unspecified; Z82.0 Family history of epilepsy and other diseases of the nervous system; Z82.49 Family history of ischemic heart disease and other diseases of the circulatory system; Z83.3 Family history of diabetes mellitus
CPT/HCPCS: 31500; 36415; 36600; 71045; 74018; 80048; 80053; 82805; 82962; 83605; 83735; 83880; 84484; 85025; 85379; 87040; 87070; 87077; 87081; 87086; 87186; 87205; 87426; 87493; 87804; 92610; 92950; 93005; 93306; 94002; 94003; 94640; 94660; 96365; 96375; 97110; 97116; 97163; 97530; 99291; G0378; J0330; J2470; J2543; J2704; J3490; J7060